=== PATIENT | female | born 1935 | race Caucasian/White ===

== ENCOUNTER → 2017-01-27 | Outpatient (CLI) | payer BC ==
[~2017-01-27] MED LIST: CHOL100010 PO; CYAN100020 PO; DARI15TA PO; FURO-85 PO; LXP/20 PO; METO-217 PO; OXGN; POTA1TAB97 PO; WLLSR150 PO
[2017-01-27 17:41] LABS: BASO % 0.3 %; BASO ABS # 0.02 K/uL (0-0.2); COMPLETE YES; HEMATOCRIT 36.3 % (37-47); IG% 0.4 %; LYMPH % 27.7 %; LYMPH ABS # 2.17 K/uL (1.2-3.4); MEAN CELL VOLUME 99.7 fL (80-100); MEAN CORPUSCULAR HEMOGLOBIN 32.7 pg (25-34); MEAN CORPUSCULAR HGB CONC 32.8 g/dl (32-36); MEAN PLATELET VOLUME 10.1 fL (7.4-10.4); MONO % 6.1 %; NEUT % 63.5 %; PLATELET COUNT 344 K/uL (130-400); RED BLOOD COUNT 3.64 M/uL (4.2-5.4); WHITE BLOOD COUNT 7.82 K/uL (4.8-10.8)
[2017-01-27 18:14] LABS: FERRITIN 103.6 ng/ml (8.0-388.0)
--- NOTE | 2017-02-03 07:34 | CODING QUERY MEDICAL NECESSITY ---
CQSUPPORTING DIAGNOSIS NEEDED A supporting diagnosis is required for the test/procedure performed on this patient in order for us to be reimbursed by the patient's insurance. Please provide a supporting diagnosis for the following test/procedure listed below next to the test name along with your signature. *If there is no additional diagnosis for this patient that would support the following test/procedure please document that below next to the test/procedure. Test(s)/Procedure(s) that require a supporting diagnosis: DOS 01/27/17 VITAMIN B12 TEST Provider Signature: Date: Thank you [facility] Once completed, please kindly fax back to [phone] For questions please call [phone]
== END | disposition home or self-care (01) ==
LOC: C.LABPVFM 14:54
PROVIDERS: ATTEND Internal Medicine Hematology & Oncology
DX: D50.9 Iron deficiency anemia, unspecified (principal)

== ENCOUNTER → 2017-04-23 | Day surgery (SDC) | payer BC ==
[2017-04-01 13:46] VITALS: Ht 149.9 cm; Wt 74.5 kg
[~2017-04-23] VITALS: Ht 149.9 cm; Wt 74.5 kg
[~2017-04-23] MED LIST changes: +500ML BSS 0.3ML EPI 1:1000PF IRRIG ONE; +ACETAMINOPHEN 325 MG TAB PO PRN; +AMVISC PLUS 0.8ML SYRINGE INT OCU ONE; +ATROPINE SULFATE 0.1 MG/ML 5ML SYR IV PRN; +AcetaZOLAMIDE 250 MG TAB PO SCH; +BETAXOLOL HCL 0.25% OP SUSP PER DROP CHARGE OPL SCH; +BRIMONIDINE TART 0.2% OP SOLN PER DROP CHARGE ONE; +CYCLOPENTOLATE HCL 1% OP SOLN PER DROP CHARGE OPL SCH; +ENDOCOAT 0.85ML SYRINGE INT OCU ONE; +EpINEphrine INJ 1MG/ML AMP 1 MG/ML AMP ONE; +LACTATED RINGER'S 1000ML 500 ML IV SCH; +LIDOCAINE 4% OP SOLN DROP CHARGE ONE; +LIDOCAINE 4% OP SOLN DROP CHARGE OPL SCH; +LIDOCAINE HCL 1% MPF 2 ML VIAL ONE; +MIDAZOLAM HCL 1 MG/ML 2ML VIAL ONE; +MIX: 4ML BSS 1ML EPI 1:1000 PF INSTIL ONE; +MOXIFLOXACIN OPH SOLN PER DROP CHARGE ONE; +MOXIFLOXACIN OPH SOLN PER DROP CHARGE OPL SCH; +OCUCOAT 1 ML SOLN IO ONE; +PHENYLEPHRINE HCL 2.5% OP SOLN PER DROP CHARGE OPL SCH; +POVIDONE-IODINE OP SOLN 30 ML BTL ONE; +PROPARACAINE 0.5% OP SOLN PER DROP CHARGE OPL SCH; +TOBRAMYCIN/DEXAMETHASONE OPH OINT PER APPLN CHARGE ONE; +TROPICAMIDE 1% OP SOLN PER DROP CHARGE OPL SCH
--- NOTE | 2017-04-23 08:40 | History & Physical Bridge - SC ---
H&P Re-Evaluation Bridge Note: I have examined the patient, reviewed the History & Physical and in the interval since the performance of the History & Physical I have noted the following changes of clinical significance: No changes noted
[2017-04-23] MEDS: PHENYLEPHRINE HCL 2.5% OP SOLN PER DROP CHARGE OPL SCH ×2 (09:48→09:53)
[2017-04-23] MEDS: TROPICAMIDE 1% OP SOLN PER DROP CHARGE OPL SCH ×2 (09:49→09:54)
[2017-04-23] MEDS: CYCLOPENTOLATE HCL 1% OP SOLN PER DROP CHARGE OPL SCH ×2 (09:50→09:55)
[2017-04-23] MEDS: MOXIFLOXACIN OPH SOLN PER DROP CHARGE OPL SCH ×2 (09:51→10:01)
--- NOTE | 2017-04-23 10:52 | Discharge Instructions-SurgCtr ---
Discharge Instructions Date of Service Apr 23, 2017. Visit Reason for Visit: Left Cataract Discharge Discharge Diagnosis / Problem: lens implant left eye Discharge Goals Goal(s): Improve function Activity Recommendations Activity Limitations: resume your previous activity Lifting Limitations: no more than 10 pounds Exercise/Sports Limitations: gradually increase as tolerated May Resume Sexual Activity: when tolerated Shower/Bathe: tomorrow Driving or Machine Use: resume 1 day after discharge Anesthesia . Post Anesthesia Instructions: If you have had General Anesthesia or IV Sedation: * Do not drive today. * Resume driving when surgeon permits. * Do not make important decisions or sign legal documents today. * Call surgeon for: 1. Temperature elevations greater than 101 degrees F. 2. Uncontrollable pain. 3. Excessive bleeding. 4. Persistent nausea and vomiting. 5. Medication intolerance (nausea, vomiting or rash). * For nausea and vomiting use only clear liquids such as: tea, soda, bouillon until nausea subsides, then gradually increase diet as tolerated. * If you have any concerns or questions, call your surgeon's office. If physician is unavailable and it is an emergency, call 911 or go to the nearest emergency room. . Instructions / Follow-Up Instructions / Follow-Up ACTIVITY RECOMMENDATIONS: * Light activities. * Mild irritation and blurred vision are common for the first few days. * You may walk outside, read, watch television. * Redness around the white part of the eye is common. MEDICATIONS: Resume previous medications unless instructed otherwise by your surgeon. * Take white Diamox (Acetazolamide) tablet at 1 pm today. Start all eye drops at 1 pm today: * Eye drops (today and tomorrow): Prednisone - one drop in operative eye every 3 hours while awake Ofloxacin - one drop in operative eye every 3 hours while awake SPECIAL CARE INSTRUCTIONS: * Tape plastic shield over eye to sleep at night. Call your doctor at with any concerns or problems. FOLLOW UP VISIT: Follow-up with Dr Braun at [facility] office as scheduled. Diet Recommendations Home Diet: no limitations Procedures Procedures Performed: cataract extraction with lens implant Pending Studies Studies pending at discharge: no Medical Emergencies . Who to Call and When: Medical Emergencies: If at any time you feel your situation is an emergency, please call 911 immediately. . Non-Emergent Contact Non-Emergency issues call your: English Composition Instructor Call Non-Emergent contact if: your pain is not controlled [phone] . . "Provider Documentation" section prepared by Dameon Braun. .
--- NOTE | 2017-04-23 10:53 | [facility] Operative Report ---
Operative Report Date of Service Apr 23, 2017. Operative Report 1. PREOPERATIVE DIAGNOSIS: Senile nuclear cataract, left eye. 2. POSTOPERATIVE DIAGNOSIS: Senile nuclear cataract, left eye. 3. PROCEDURE: Phacoemulsification of left cataract with posterior chamber lens implant, type [employer], model MI60L, power +26 diopters. ANESTHESIA: Local standby. SURGEON: Dr. Braun. COMPLICATIONS: None. OPERATING TIME: 10 minutes. 4. OPERATION AND FINDINGS: DESCRIPTION OF PROCEDURE: The left pupil was dilated. The anesthetic was administered using a topical technique. The left eye was prepped and draped. A speculum was placed. A clear corneal incision was formed. The chamber was filled with Amvisc Plus and Endocoat. Epinephrine solution was used. A paracentesis was placed. A capsulorrhexis was performed. The nucleus was hydrodissected. The lens was removed with phacoemulsification. Time was 2.97 seconds. The aspiration unit was used to remove the cortex. The capsule was filled with Amvisc Plus. The lens implant was folded and placed into the capsule. The incision was hydrated. The Amvisc was aspirated. The wound was secure. The chamber was deep. The pupil was round. Brimonidine, TobraDex ointment and Vigamox solution were placed. The speculum was removed. The patient was returned to the Recovery Room in stable condition. I attest to the content of the Intraoperative Record and any orders documented therein. Any exceptions are noted below. The scribe's documentation has been prepared in my presence, under my direction and personally reviewed by me in its entirety. I confirm that the note above accurately reflects all work, treatment, procedures, and medical decision making performed by me. I personally scribed for Dameon Braun M.D. ([facility]) on 04/23/17 at 10:53. Electronically submitted by Elizabeth Benavides ([facility]).
[2017-04-23 10:56] VITALS: TEMP 36.5
--- NOTE | 2017-04-23 11:08 | Anesthesia Progress Nt - [facility] ---
Anesthesia Post Op Note Date & Time Apr 23, 2017 at 11:08 Vital Signs Pain Intensity: 0 Vital Signs Past 12 Hours Date Time Temp Pulse Resp B/P (MAP) Pulse Ox O2 Delivery O2 Flow Rate FiO2 04/23/17 10:56 36.5 56 20 148/69 (95) 98 Room Air 04/23/17 09:57 37.1 61 16 160/72 (101) 96 Room Air Notes Mental Status: alert / awake / arousable, participated in evaluation Pt Amnestic to Procedure: Yes Nausea / Vomiting: adequately controlled Pain: adequately controlled Airway Patency, RR, SpO2: stable & adequate BP & HR: stable & adequate Hydration State: stable & adequate Anesthetic Complications: no major complications apparent
[2017-04-23 11:16] VITALS: BP 148/74; PULSE 56; O2SAT 95
== END | disposition home or self-care (01) ==
LOC: X.SURG 08:50
PROVIDERS: ATTEND Specialist
DX: H25.12 Age-related nuclear cataract, left eye (principal); E03.9 Hypothyroidism, unspecified; E11.9 Type 2 diabetes mellitus without complications; I10 Essential (primary) hypertension; R01.1 Cardiac murmur, unspecified; M19.90 Unspecified osteoarthritis, unspecified site; G62.9 Polyneuropathy, unspecified; F41.9 Anxiety disorder, unspecified; F32.9 Major depressive disorder, single episode, unspecified; D75.9 Disease of blood and blood-forming organs, unspecified

== ENCOUNTER → 2017-04-24 | Outpatient (CLI) | payer BC ==
[~2017-04-24] MED LIST changes: -500ML BSS 0.3ML EPI 1:1000PF IRRIG ONE; -ACETAMINOPHEN 325 MG TAB PO PRN; -AMVISC PLUS 0.8ML SYRINGE INT OCU ONE; -ATROPINE SULFATE 0.1 MG/ML 5ML SYR IV PRN; -AcetaZOLAMIDE 250 MG TAB PO SCH; -BETAXOLOL HCL 0.25% OP SUSP PER DROP CHARGE OPL SCH; -BRIMONIDINE TART 0.2% OP SOLN PER DROP CHARGE ONE; -CYCLOPENTOLATE HCL 1% OP SOLN PER DROP CHARGE OPL SCH; -ENDOCOAT 0.85ML SYRINGE INT OCU ONE; -EpINEphrine INJ 1MG/ML AMP 1 MG/ML AMP ONE; -LACTATED RINGER'S 1000ML 500 ML IV SCH; -LIDOCAINE 4% OP SOLN DROP CHARGE ONE; -LIDOCAINE 4% OP SOLN DROP CHARGE OPL SCH; -LIDOCAINE HCL 1% MPF 2 ML VIAL ONE; -MIDAZOLAM HCL 1 MG/ML 2ML VIAL ONE; -MIX: 4ML BSS 1ML EPI 1:1000 PF INSTIL ONE; -MOXIFLOXACIN OPH SOLN PER DROP CHARGE ONE; -MOXIFLOXACIN OPH SOLN PER DROP CHARGE OPL SCH; -OCUCOAT 1 ML SOLN IO ONE; -PHENYLEPHRINE HCL 2.5% OP SOLN PER DROP CHARGE OPL SCH; -POVIDONE-IODINE OP SOLN 30 ML BTL ONE; -PROPARACAINE 0.5% OP SOLN PER DROP CHARGE OPL SCH; -TOBRAMYCIN/DEXAMETHASONE OPH OINT PER APPLN CHARGE ONE; -TROPICAMIDE 1% OP SOLN PER DROP CHARGE OPL SCH
[2017-04-24 16:51] LABS: BASO % 0.3 %; BASO ABS # 0.02 K/uL (0-0.2); COMPLETE YES; EOS % 4.3 %; HEMATOCRIT 39.5 % (37-47); IG% 0.3 %; LYMPH % 27.4 %; LYMPH ABS # 1.98 K/uL (1.2-3.4); MEAN CELL VOLUME 102.3 fL (80-100); MEAN CORPUSCULAR HEMOGLOBIN 32.9 pg (25-34); MEAN CORPUSCULAR HGB CONC 32.2 g/dl (32-36); MEAN PLATELET VOLUME 10.8 fL (7.4-10.4); MONO % 5.9 %; NEUT % 61.8 %; PLATELET COUNT 328 K/uL (130-400); RED BLOOD COUNT 3.86 M/uL (4.2-5.4); WHITE BLOOD COUNT 7.23 K/uL (4.8-10.8)
[2017-04-24 17:04] LABS: FERRITIN 74.4 ng/ml (8.0-388.0)
== END | disposition home or self-care (01) ==
LOC: C.LABBC 14:46
PROVIDERS: ATTEND Nurse Practitioner
DX: D50.9 Iron deficiency anemia, unspecified (principal); E53.8 Deficiency of other specified B group vitamins; E55.9 Vitamin D deficiency, unspecified; I10 Essential (primary) hypertension

== ENCOUNTER → 2017-06-10 | Outpatient (CLI) | payer BC ==
[2017-06-10 15:40] LABS: BASO % 0.2 %; BASO ABS # 0.01 K/uL (0-0.2); COMPLETE YES; EOS % 0.2 %; HEMATOCRIT 36.2 % (37-47); IG% 0.2 %; LYMPH % 14.6 %; LYMPH ABS # 0.71 K/uL (1.2-3.4); MEAN CELL VOLUME 96.3 fL (80-100); MEAN CORPUSCULAR HEMOGLOBIN 31.1 pg (25-34); MEAN CORPUSCULAR HGB CONC 32.3 g/dl (32-36); MEAN PLATELET VOLUME 10.6 fL (7.4-10.4); MONO % 2.3 %; NEUT % 82.5 %; PLATELET COUNT 253 K/uL (130-400); RED BLOOD COUNT 3.76 M/uL (4.2-5.4); WHITE BLOOD COUNT 4.87 K/uL (4.8-10.8)
[2017-06-10 15:51] LABS: ALT/SGPT 27 U/L (12-78); BLOOD UREA NITROGEN 22 mg/dl (7-18); BUN/CREATININE RATIO 22.5 (10-20); CALCIUM 8.7 mg/dl (8.5-10.1); CARBON DIOXIDE 26 mmol/L (21-32); CHLORIDE 105 mmol/L (98-107); CREATININE 0.96 mg/dl (0.60-1.20); GLUCOSE 120 mg/dl (70-99); POTASSIUM 3.9 mmol/L (3.5-5.1); SODIUM 138 mmol/L (136-145)
[2017-06-10 15:53] LABS: ALB/GLOB RATIO 0.9 (0.9-2); ALKALINE PHOSPHATASE 111 U/L (45-117); AST/SGOT 36 U/L (15-37)
[2017-06-10 16:34] LABS: LYME DISEASE AB IGG NEG (NEG)
[2017-06-10 16:50] LABS: LYME DISEASE AB IGM EQUIVOCAL (NEG)
[2017-06-17 10:43] LABS: 18KDIGG BAND NONREACTIVE (NONREACTIVE); 23KDIGG BAND REACTIVE (NONREACTIVE); 23KDIGM BAND REACTIVE (NONREACTIVE); 28KDIGG BAND NONREACTIVE (NONREACTIVE); 30KDIGG BAND NONREACTIVE (NONREACTIVE); 39KDIGG BAND NONREACTIVE (NONREACTIVE); 39KDIGM BAND NONREACTIVE (NONREACTIVE); 41KDIGG BAND REACTIVE (NONREACTIVE); 41KDIGM BAND NONREACTIVE (NONREACTIVE); 45KDIGG BAND NONREACTIVE (NONREACTIVE); 58KDIGG BAND NONREACTIVE (NONREACTIVE); 66KDIGG BAND NONREACTIVE (NONREACTIVE); 93KDIGG BAND NONREACTIVE (NONREACTIVE)
== END | disposition home or self-care (01) ==
LOC: C.LAB1850 14:14
PROVIDERS: ATTEND Internal Medicine
DX: R50.9 Fever, unspecified (principal); E55.9 Vitamin D deficiency, unspecified

== ENCOUNTER → 2017-06-30 | Outpatient (CLI) | payer BC ==
[2017-06-30 17:51] LABS: BLOOD UREA NITROGEN 23 mg/dl (7-18); BUN/CREATININE RATIO 23.7 (10-20); CALCIUM 8.7 mg/dl (8.5-10.1); CARBON DIOXIDE 33 mmol/L (21-32); CHLORIDE 104 mmol/L (98-107); CREATININE 0.96 mg/dl (0.60-1.20); GLUCOSE 77 mg/dl (70-99); SODIUM 140 mmol/L (136-145)
== END | disposition home or self-care (01) ==
LOC: C.LAB 16:51
PROVIDERS: ATTEND Nurse Practitioner Adult Health
DX: R60.9 Edema, unspecified (principal)

== ENCOUNTER 2017-12-08 23:48 | Emergency (ER) | payer BC ==
[~2017-12-08] VITALS: Ht 149.9 cm; Wt 74.3 kg
[2017-12-08 23:55] VITALS: TEMP 36.7; Ht 149.9 cm; Wt 74.3 kg
[2017-12-09] MEDS ORDERED: CEFIXIME TAB 400 MG CAP PO STA (01:12)
[2017-12-09] MEDS ORDERED: CEFD1CAP14 PO (01:14)
--- NOTE | 2017-12-09 01:15 | EMERGENCY ROOM VISIT NOTE ---
History Report prepared by Ann: Neo Mandel Under the Supervision of: Dr. Jorge Jane M.D. First contact with patient: 00:06 Chief Complaint: SWELLING TO EXTREMITY Stated Complaint: LEGS SWOLLEN AND RED History of Present Illness The patient is a 82 year old female who presents to the Emergency Room with complaints of worsening bilateral leg swelling. She has a history of cellulitis of her legs and is concerned they may be infected. She states that she has had her swelling in her legs for a long time, but that it worsened acutely a week ago. The patient also complains of an occasional cough. She denies any fevers, chills, vomiting, or SOB. She denies recent antibiotic use. The patient has noticed red spots forming on her legs over the past few weeks. She has had one large red spot on her left leg that has been present for a while. She states that her legs feel very sore. The patient's penicillin allergy involved a rash which developed after using Augmentin. Source of History: patient Onset: A week ago Position: leg (bilateral) Quality: other (swelling) Timing: worsening Associated Symptoms: + cough (occasional), No fevers, No chills, No SOB, No vomiting Review of Systems See HPI for pertinent positives & negatives. A total of 10 systems reviewed and were otherwise negative. Past Medical & Surgical Medical Problems: (1) Arthritis (2) Cellulitis (3) Depression (4) Edema (5) Hyperlipidemia Nec/Nos (6) Hypertension Nos (7) Osteoarthros Nos-Unspec (8) Sepsis Family History Cancer Diabetes mellitus Heart disease Hypertension Kidney disease Kidney stones Social History Smoking Status: Never Smoker Drug Use: none Marital Status: , Housing Status: lives with family Occupation Status: retired Current/Historical Medications Scheduled Bupropion HCl (Bupropion HCl Sr), 150 MG PO QAM Cefdinir (Omnicef), 300 MG PO Q12H Cholecalciferol (Vitamin D), 1 TAB PO QAM Cyanocobalamin (Vitamin B12), 1 TAB PO QAM Darifenacin (Enablex), 15 MG PO QAM Escitalopram Oxalate (Escitalopram Oxalate), 20 MG PO QAM Furosemide (Lasix), 20 MG PO QAM Home O2 Therapy (Oxygen), 2 LITERS NA HS Metoprolol Succinate (Toprol Xl), 50 MG PO BID Potassium Chloride (K-Tab), 1 TAB PO QAM Allergies Coded Allergies: Penicillins (Unverified Allergy, Unknown, RASH ALL OVER-TOLERATED ZOSYN, ) Physical Exam Vital Signs Date Time Temp Pulse Resp B/P (MAP) Pulse Ox O2 Delivery O2 Flow Rate FiO2 12/09/17 01:27 83 18 161/67 97 12/08/17 23:55 36.7 90 18 179/77 96 Room Air Physical Exam GENERAL: Patient is elderly appearing and in no acute distress. Laughing, smiling. HEENT: No acute trauma, normocephalic atraumatic, mucous membranes moist, no nasal congestion, no scleral icterus. NECK: No stridor, no adenopathy, no meningismus, trachea is midline. LUNGS: No dyspnea. Clear to auscultation and equal bilaterally. No wheeze, no rhonchi. HEART: Regular rate and rhythm. No murmurs, rubs, gallops appreciated. ABDOMEN: Soft, nontender, bowel sounds positive, no masses appreciated, no peritonitis. BACK: No midline tenderness, no CVA tenderness EXTREMITIES: Pitting edema bilateral lower legs. Cellulitis/erythema of the left lower leg from the foot to the mid-calf. Scabbed over sores of the left anterior moore. No abscess or fluctuance. No streaking up legs of cellulitis. NEUROLOGIC: Alert and oriented, no acute motor or sensory deficits, no focal weakness, cranial nerves grossly intact. SKIN: No rash, no jaundice, no diaphoresis. Medical Decision & Procedures ER Provider Diagnostic Interpretation: US results per statrad and my review. US VENOUS LEFT LOWER EXTREMITY: No evidence of deep vein thrombosis. Medications Administered Medications (Trade) Dose Ordered Sig/Yenny Route Start Time Stop Time Status Last Admin Dose Admin Cefixime (Suprax Tab) 400 mg NOW STAT PO 12/09/17 01:12 12/09/17 01:14 DC 12/09/17 01:23 400 MG ED Course 0007: The patient was evaluated in room A12B. A complete history and physical exam was performed. 0112: Ordered Suprax Tab 400 mg PO. 0115: Reevaluated the patient. She feels comfortable and would like to go home. Discussed results and discharge instructions: she verbalized understanding and agreement. The patient is ready for discharge. Medical Decision Differential: DVT, CHF, Arterial Occlusion, Infectious, Joint Effusion, Trauma, Lymphedema, Idiopathic, amongst other pathologies entertained. 82 yr old female with recently worsening lymphedema and has now developed cellulitis left ankle. She is without systemic symptoms. Suspect this is from healed sores left moore. No DVT by US. Pulses intact, no compartment syndrome, no evidence of abscess, and I do not suspect underlying fracture given no trauma. Advised increase Lasix x 2 daily for next 2 days and repeat eval by PCP. History of normal kidney function and denies change urinary frequency etc. Will treat with Omnicef given culture with previous infection. Discussed that given her history she is at increased risk of failure outpatient therapy and to have close monitoring for evidence of worsening. Stressed PCP evaluation of this as well. Family and patient comfortable with this plan. Medication Reconcilliation Current Medication List: was personally reviewed by me Blood Pressure Screening Patient's blood pressure: Elevated blood pressure Blood pressure disposition: Referred to PCP Impression Primary Impression: Cellulitis of left lower leg Additional Impression: Lymphedema Scribe Attestation The scribe's documentation has been prepared under my direction and personally reviewed by me in its entirety. I confirm that the note above accurately reflects all work, treatment, procedures, and medical decision making performed by me. Departure Information Dispostion Home / Self-Care Prescriptions Cefdinir (Omnicef) 300 Mg Cap 300 MG PO Q12H for 10 Days, #20 CAP Prov: Jorge Jane M.D. 12/09/17 Referrals RV. Castro MD (PCP) Patient Instructions Cellulitis - [facility], My [facility] Additional Instructions It is important you follow up with your primary care provider in the next 2-3 days. Over the next 2 days increase your Lasix to 2 tabs in the morning. Problem Qualifiers
[2017-12-09 01:27] VITALS: BP 161/67; PULSE 83; O2SAT 97
--- NOTE | 2017-12-09 07:03 | DIAGNOSTIC IMAGING REPORT ---
ULTRASOUND LEFT LOWER EXTREMITY VENOUS CLINICAL HISTORY: Left leg swelling and erythema. COMPARISON STUDY: Left lower extremity venous ultrasound dated 11/09/2015. TECHNIQUE: Real-time, grayscale, and color Doppler sonography of the deep veins of the left lower extremity was performed from the inguinal crease to the calf. Compression and augmentation were utilized. FINDINGS: There is no sonographic evidence of deep venous thrombosis identified in the left lower extremity. The common femoral, superficial femoral, and popliteal veins are patent and normally compressible. The greater saphenous vein and the profunda femoris vein at the junction with the common femoral vein are clear. The visualized calf veins are patent. IMPRESSION: There is no sonographic evidence of deep venous thrombosis identified in the left lower extremity. Electronically signed by: Simone Rodriguez M.D. 12/09/2017 7:02 AM Dictated Date/Time: 12/09/2017 7:02 AM
== END 2017-12-09 01:28 | disposition home or self-care (01) ==
LOC: C.EDB 23:49 → C.EDA 12-09 01:28
DX: L03.116 Cellulitis of left lower limb (principal); I89.0 Lymphedema, not elsewhere classified; M19.90 Unspecified osteoarthritis, unspecified site; F32.9 Major depressive disorder, single episode, unspecified; E78.5 Hyperlipidemia, unspecified; I10 Essential (primary) hypertension; M81.0 Age-related osteoporosis without current pathological fracture; Z99.81 Dependence on supplemental oxygen; Z83.3 Family history of diabetes mellitus; Z82.49 Family history of ischemic heart disease and other diseases of the circulatory system; Z84.1 Family history of disorders of kidney and ureter

== ENCOUNTER → 2018-01-26 | Outpatient (CLI) | payer BC | END | disposition home or self-care (01) | LOC: C.PATHSPEC 16:28 | PROVIDERS: ATTEND Dermatology | DX: L57.0 Actinic keratosis (principal) ==

== ENCOUNTER → 2018-02-26 | Outpatient (CLI) | payer BC ==
[2018-02-26 11:24] LABS: BASO % 0.3 %; BASO ABS # 0.02 K/uL (0-0.2); EOS % 2.7 %; EOS ABS # 0.17 K/uL (0-0.5); HEMATOCRIT 37.4 % (37-47); HEMOGLOBIN 12.1 g/dL (12.0-16.0); IG# 0.01 K/uL (0.00-0.02); LYMPH % 27.1 %; LYMPH ABS # 1.71 K/uL (1.2-3.4); MEAN CELL VOLUME 95.9 fL (80-100); MEAN CORPUSCULAR HGB CONC 32.4 g/dl (32-36); MEAN PLATELET VOLUME 9.9 fL (7.4-10.4); MONO % 6.2 %; MONO ABS # 0.39 K/uL (0.11-0.59); NEUT % 63.5 %; NEUT ABS # 4.01 K/uL (1.4-6.5); PLATELET COUNT 291 K/uL (130-400); RED CELL DISTRIBUTION WIDTH CV 13.7 % (11.5-14.5); RED CELL DISTRIBUTION WIDTH SD 47.9 fL (36.4-46.3); WHITE BLOOD COUNT 6.31 K/uL (4.8-10.8)
== END | disposition home or self-care (01) ==
LOC: C.LAB 10:52
PROVIDERS: ATTEND Internal Medicine Hematology & Oncology
DX: D50.9 Iron deficiency anemia, unspecified (principal)

== ENCOUNTER 2023-11-20 14:21 | Inpatient (IN) ==
[2023-11-20 15:07] LABS: Basophils # (auto) 0.04 K/uL (0.00-0.20); Basophils % (auto) 0.6 %; Eosinophils # (auto) 0.27 K/uL (0.00-0.50); Eosinophils % (auto) 4.4 %; Hematocrit (blood only) 33.3 % (37.0-47.0); Hemoglobin 10.8 g/dl (12.0-16.0); Immature Granulocytes # (auto) 0.02 K/uL (0.01-0.20); Immature Granulocytes % (auto) 0.3 %; Lymphocytes # (auto) 1.63 K/uL (1.20-3.40); Lymphocytes % (auto) 26.4 %; Mean Corpuscular Hgb Conc 32.4 g/dL (32.0-36.0); Mean Corpuscular Volume 98.5 fL (80.0-100.0); Mean Platelet Volume 10.5 fL (9.4-12.4); Monocytes # (auto) 0.47 K/uL (0.11-0.59); Monocytes % (auto) 7.6 %; Neutrophils # (auto) 3.75 K/uL (1.40-6.50); Neutrophils % (auto) 60.7 %; Platelet Count 340 K/uL (130-400); RDW Coefficient of Variation 13.5 % (11.5-14.5); RDW Standard Deviation 48.9 fL (36.4-46.3); Red Blood Count 3.38 M/uL (4.20-5.40); White Blood Count 6.18 K/ul (4.8-10.8)
[2023-11-20 15:24] LABS: Albumin Globulin Ratio 1.4 (0.9-2); Albumin Level 4.1 gm/dl (3.4-5.0); BUN Creatinine Ratio 35.6 (10-20); Bilirubin,Total 0.5 mg/dl (0.2-1.0); Calcium 8.8 mg/dl (8.6-10.3); Creatinine Clr Calc Pharmacy 27.8 ml/min; Est GFR (African American) 47.4 ml/min; Est GFR (Non-African American) 40.9 ml/min; Globulin 2.9 gm/dl (2.5-4.0)
[2023-11-20 15:32] LABS: Partial Thromboplastin Time 29 Seconds (21-31); Prothrombin Time 10.8 Seconds (9.0-12.0); Troponin I High Sensitivity 138.2 pg/ml (0-14)
--- NOTE | 2023-11-20 16:31 | Electrocardiogram Report ---
Test Reason : Blood Pressure : / mmHG Vent. Rate : 074 BPM Atrial Rate : 074 BPM P-R Int : 168 ms QRS Dur : 086 ms QT Int : 392 ms P-R-T Axes : 023 003 022 degrees QTc Int : 435 ms Normal sinus rhythm Minimal voltage criteria for LVH, may be normal variant ( R in aVL ) Poor R wave progression, consider anterior UT vs. lead placement vs. LVH Abnormal ECG When compared with ECG of 15-APR-2023 21:31, No significant change was found Confirmed by Dameon Longo ([id number]) on 11/20/2023 4:30:50 PM Referred By: Confirmed By:Dameon Longo
[2023-11-20] MEDS ORDERED: OPTIRAY 320 125ml IV ONE (16:51)
--- NOTE | 2023-11-20 16:58 | Emergency Department Note ---
History of Present Illness General Chief complaint: Referred by Doctor Stated complaint: POSSIBLE CELLULITIS Time Seen by Provider: 11/20/23 16:07 History of Present Illness Provider complaint: Leg swelling Onset (ago): week(s) 1 88-year-old female presents emergency department for leg swelling. Patient reports that she has swelling in her right lower extremity. She states she has pain in her right lower extremity. She reports chest pain with exertion as well as shortness of breath at rest as well as as with exertion. She reports no blood thinner usage. Patient reports history of cellulitis. No fevers. Home Medications Medication Instructions Recorded Confirmed Type Oxygen Home #1 ea 07/30/19 09/03/23 History multivitamin (Daily Multi-Vitamin 1 tab PO QAM 07/30/19 11/20/23 History tablet) calcium carbonate 500 mg calcium 500 mg PO QAM 12/22/19 11/20/23 History (1,250 mg) tablet acetaminophen 500 mg tablet 1,000 mg PO Q6 PRN Pain 06/20/20 11/20/23 History (Tylenol Extra Strength) cholecalciferol (vitamin D3) 25 2,000 unit PO QAM #90 caps 08/18/20 11/20/23 Rx mcg (1,000 unit) capsule (Vitamin D3) cyanocobalamin (vitamin B-12) 2,000 mcg PO QAM 08/18/20 11/20/23 History 1,000 mcg tablet docusate sodium 100 mg capsule 100 mg PO DAILY 08/07/22 11/20/23 History (Colace) trospium 60 mg capsule,extended 60 mg PO QAM #90 caps 12/09/22 11/20/23 Rx release 24 hr nystatin-triamcinolone 100,000 1 applic topical BID PRN Rash 04/16/23 11/20/23 History unit/g-0.1 % topical cream clobetasol 0.05 % topical cream 1 applic topical DAILY Rash #60 04/22/23 11/20/23 Rx grams bupropion HCl 150 mg tablet,12 hr 150 mg PO QAM #90 ea 08/29/23 11/20/23 Rx sustained-release hydrochlorothiazide 25 mg tablet 25 mg PO QAM edema #90 tabs 08/29/23 11/20/23 Rx estradiol 0.01% (0.1 mg/gram) 1 g vaginal 2XWK #42.5 grams 09/03/23 11/20/23 Rx vaginal cream hydralazine 50 mg tablet 50 mg PO Q8H #270 tabs 10/03/23 11/20/23 Rx Allergies Allergy/AdvReac Type Severity Reaction Status Date / Time Penicillins Allergy Unknown DIFFUSE Verified 09/03/23 11:54 RASH Past Med/Surg History Medical History History of rib fracture (11/11/22) 11th rib fracture. 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 Vaginal prolapse Uterine prolapse Hx of headache History of anemia Hx of actinic keratosis History of anxiety Urinary incontinence Cellulitis recurrent LLE, no current issues Obesity Nocturnal hypoxemia 2L O2 HS as needed Hypertension Arthritis Depression Surgical History History of colonoscopy History of cataract surgery History of oral surgery History of cystoscopy most recent 01/04/19 [place] Status post excision of lipoma Family History Brother Hearing loss Myocardial infarction Hypertension Mother Hearing loss Hypertension Father Hearing loss Hypertension Other Allergies Asthma Heart disease No family history of adverse response to anesthesia No family history of bleeding disorder Denies family history of Colon cancer Ovarian cancer Prostate cancer Breast cancer Colorectal cancer Social History Smoking Status: Never smoker Second Hand Exposure: No; Do You Dip or Chew Tobacco: No; Hx Alcohol Use: No Hx Substance Use: No Preferred Language: Kinyarwanda Communication Ability: Effective Visual Impairment: No Limitations Hearing Ability: Normal Graduate Assistant Athletic Trainer Required: No Beliefs That Will Affect Care: None marital status: / Current Living Situation: Alone current occupational status: retired Feels Safe at Home: Yes Childhood Exposure to Second-Hand Smoke: No Diet: regular during the past year weight has: remained stable Dental Care, Regularly: Yes Physical Activity Frequency: Does not Exercise Seatbelt Use: always Sunscreen Use: Yes Assistive Devices: Denture - Upper, Denture - Lower and Glasses Physical Exam Vital Signs Vital Signs - 24 hr 11/20/23 14:29 11/20/23 16:10 11/20/23 16:10 Temperature 36.6 C Temperature Source Temporal Artery Scan Pulse Rate 79 75 Pulse Rate [Apical] Pulse Rate from SpO2 Sensor 73 Respiratory Rate 20 23 Respiratory Effort / Characteristics Non-Labored Respiratory Depth Normal Respiratory Pattern Blood Pressure 116/63 162/64 H Blood Pressure [Right Arm] Blood Pressure Mean 80 127 Blood Pressure Mean [Right Arm] Pulse Oximetry 97 98 Oxygen Delivery Method Room Air Sepsis Recent Fever Within 48 Hours No Sepsis New/Unexplained Change in Mental Status No Sepsis Action Taken by Nursing No Action Required 11/20/23 16:11 11/20/23 16:20 11/20/23 16:30 Temperature Temperature Source Pulse Rate 73 Pulse Rate [Apical] 76 Pulse Rate from SpO2 Sensor 72 Respiratory Rate 18 21 Respiratory Effort / Characteristics Non-Labored Spontaneous Respiratory Depth Normal Respiratory Pattern Regular Blood Pressure 183/75 H Blood Pressure [Right Arm] 162/64 H Blood Pressure Mean 115 Blood Pressure Mean [Right Arm] 96 Pulse Oximetry 98 97 Oxygen Delivery Method Room Air Sepsis Recent Fever Within 48 Hours Sepsis New/Unexplained Change in Mental Status Sepsis Action Taken by Nursing 11/20/23 16:30 11/20/23 16:40 11/20/23 17:01 Temperature Temperature Source Pulse Rate 73 71 74 Pulse Rate [Apical] Pulse Rate from SpO2 Sensor 74 71 74 Respiratory Rate 19 22 18 Respiratory Effort / Characteristics Respiratory Depth Respiratory Pattern Blood Pressure Blood Pressure [Right Arm] Blood Pressure Mean Blood Pressure Mean [Right Arm] Pulse Oximetry 98 96 95 Oxygen Delivery Method Sepsis Recent Fever Within 48 Hours Sepsis New/Unexplained Change in Mental Status Sepsis Action Taken by Nursing 11/20/23 17:02 11/20/23 17:02 11/20/23 17:10 Temperature Temperature Source Pulse Rate 75 75 Pulse Rate [Apical] Pulse Rate from SpO2 Sensor 75 73 Respiratory Rate 18 26 H Respiratory Effort / Characteristics Respiratory Depth Respiratory Pattern Blood Pressure 161/68 H Blood Pressure [Right Arm] Blood Pressure Mean 104 Blood Pressure Mean [Right Arm] Pulse Oximetry 97 99 Oxygen Delivery Method Room Air Sepsis Recent Fever Within 48 Hours Sepsis New/Unexplained Change in Mental Status Sepsis Action Taken by Nursing 11/20/23 17:20 11/20/23 17:30 11/20/23 17:30 Temperature Temperature Source Pulse Rate 74 74 Pulse Rate [Apical] Pulse Rate from SpO2 Sensor 74 74 Respiratory Rate 21 16 Respiratory Effort / Characteristics Respiratory Depth Respiratory Pattern Blood Pressure 173/77 H Blood Pressure [Right Arm] Blood Pressure Mean 116 Blood Pressure Mean [Right Arm] Pulse Oximetry 94 95 Oxygen Delivery Method Sepsis Recent Fever Within 48 Hours Sepsis New/Unexplained Change in Mental Status Sepsis Action Taken by Nursing 11/20/23 18:10 11/20/23 18:20 11/20/23 18:30 Temperature Temperature Source Pulse Rate 73 73 Pulse Rate [Apical] Pulse Rate from SpO2 Sensor 75 72 72 Respiratory Rate 16 14 Respiratory Effort / Characteristics Respiratory Depth Respiratory Pattern Blood Pressure Blood Pressure [Right Arm] Blood Pressure Mean Blood Pressure Mean [Right Arm] Pulse Oximetry 96 95 Oxygen Delivery Method Room Air Sepsis Recent Fever Within 48 Hours Sepsis New/Unexplained Change in Mental Status Sepsis Action Taken by Nursing 11/20/23 18:30 11/20/23 18:40 11/20/23 18:50 Temperature Temperature Source Pulse Rate 72 73 Pulse Rate [Apical] Pulse Rate from SpO2 Sensor 72 73 Respiratory Rate 14 14 Respiratory Effort / Characteristics Respiratory Depth Respiratory Pattern Blood Pressure 141/60 H Blood Pressure [Right Arm] Blood Pressure Mean 104 Blood Pressure Mean [Right Arm] Pulse Oximetry 92 91 Oxygen Delivery Method Room Air Sepsis Recent Fever Within 48 Hours Sepsis New/Unexplained Change in Mental Status Sepsis Action Taken by Nursing 11/20/23 19:00 11/20/23 19:00 11/20/23 19:10 Temperature Temperature Source Pulse Rate 77 82 Pulse Rate [Apical] Pulse Rate from SpO2 Sensor 76 81 Respiratory Rate 17 18 Respiratory Effort / Characteristics Respiratory Depth Respiratory Pattern Blood Pressure 168/78 H Blood Pressure [Right Arm] Blood Pressure Mean 90 Blood Pressure Mean [Right Arm] Pulse Oximetry 97 97 Oxygen Delivery Method Room Air Sepsis Recent Fever Within 48 Hours Sepsis New/Unexplained Change in Mental Status Sepsis Action Taken by Nursing Physical Exam HENT: Exam performed. -Head: Normocephalic and atraumatic. -Right Ear: External ear normal. No mastoid erythema -Left Ear: External ear normal. No mastoid erythema -Mouth/Throat: The oropharynx is clear and moist. No trismus in the jaw. No dental abscesses or uvula swelling. No oropharyngeal exudate or tonsillar abscesses. EYES: Conjunctivae and EOM are normal. Pupils are equal, round, and reactive to light. Right eye exhibits no discharge. Left eye exhibits no discharge. No scleral icterus. NECK: Normal range of motion. Neck supple. No JVD present. No spinous process tenderness present. CV: Normal rate, regular rhythm, normal heart sounds and intact distal pulses. Palpable radial pulses bue. PULM/CHEST: Effort normal and breath sounds normal. No respiratory distress. No stridor. She has no wheezes. She has no rales. ABD: The abdomen is soft.There is no tenderness. There is no rebound, no guarding MUSCSKEL: Swelling of the bilateral lower extremities right greater than left from the ankle to the calf. Palpable DP and PT pulses. NEURO: Motor and sensation grossly intact. SKIN: Mild erythema over the dorsum of the right foot. Course Course 1607: The patient was evaluated in room B7. A complete history and physical exam was performed Cardiac monitoring: An order was placed for continuous cardiac monitoring. The monitor shows a rate of 70 with sinus rhythm interpreted by 1915: Vital signs stable. Labs showed initial high-sensitivity troponin of 138 point 2 repeat 132.9 proBNP 269 imaging does show that the patient has congestive changes. Given that the patient was having exertional dyspnea and chest pain patient will be admitted. Lasix ordered for the patient. [facility] hospitalist team notified of the admission. Administered Medications Discontinued Medications Furosemide (Furosemide 40 Mg/4 Ml Vial) 40 mg IV ONE ONE Stop: 11/20/23 19:15 Last Admin: 11/20/23 19:35 Dose: 40 mg Documented By: MAIA Ioversol (Optiray 320 125ml) 117 ml IV ONCE ONE Stop: 11/20/23 16:52 Last Admin: 11/20/23 16:52 Dose: 117 ml Documented By: LEAH Medical Decision Making Laboratory Data Attestation: I reviewed the patient's lab results. 11/20/23 14:47 11/20/23 14:47 Lab Results 11/20/23 11/20/23 Range/Units 14:47 17:03 WBC 6.18 (4.8-10.8) K/ul RBC 3.38 L (4.20-5.40) M/uL Hgb 10.8 L (12.0-16.0) g/dl Hct 33.3 L (37.0-47.0) % MCV 98.5 (80.0-100.0) fL MCH 32.0 (25.0-34.0) pg MCHC 32.4 (32.0-36.0) g/dL RDW Std Deviation 48.9 H (36.4-46.3) fL RDW Coeff of Lul 13.5 (11.5-14.5) % Plt Count 340 (130-400) K/uL MPV 10.5 (9.4-12.4) fL Immature Gran % (Auto) 0.3 % Neut % (Auto) 60.7 % Lymph % (Auto) 26.4 % [place] % (Auto) 7.6 % Eos % (Auto) 4.4 % Baso % (Auto) 0.6 % Neut # (Auto) 3.75 (1.40-6.50) K/uL Lymph # (Auto) 1.63 (1.20-3.40) K/uL [place] # (Auto) 0.47 (0.11-0.59) K/uL Eos # (Auto) 0.27 (0.00-0.50) K/uL Baso # (Auto) 0.04 (0.00-0.20) K/uL Immature Gran # (Auto) 0.02 (0.01-0.20) K/uL PT 10.8 (9.0-12.0) Seconds INR 1.0 (0.9-1.1) APTT 29 (21-31) Seconds PTT Ratio 1.0 Sodium 139 (136-145) mmol/L Potassium 4.0 (3.5-5.1) mmol/L Chloride 104 (98-107) mmol/L Carbon Dioxide 27 (21-32) mmol/L Anion Gap 8 (3-11) BUN 42 H (6-23) mg/dl Creatinine 1.18 (0.6-1.2) mg/dl Est Cr Clr Drug Dosing 27.8 ml/min Est GFR ( Amer) 47.4 ml/min Est GFR (Non-Af Amer) 40.9 ml/min BUN/Creatinine Ratio 35.6 H (10-20) Glucose 86 (70-99(Fasting)) mg/dl Calcium 8.8 (8.6-10.3) mg/dl Total Bilirubin 0.5 (0.2-1.0) mg/dl AST 19 (13-39) U/L ALT 12 (7-52) U/L Alkaline Phosphatase 66 (34-104) U/L Troponin I High Sens 138.2 H* 132.9 H* (0-14) pg/ml B-Natriuretic Peptide 269 H (0-100) pg/ml Total Protein 7.0 (6.0-8.3) gm/dl Albumin 4.1 (3.4-5.0) gm/dl Globulin 2.9 (2.5-4.0) gm/dl Albumin/Globulin Ratio 1.4 (0.9-2) Imaging Data Radiologist's Impression: Chest CTA 11/20/23 16:17 CHEST CTA for PULMONARY ARTERIES CT DOSE: 671.5 mGy.cm HISTORY: Shortness of breath. TECHNIQUE: Multiaxial CT images of the chest were performed following the intravenous administration of contrast to evaluate the pulmonary arteries. 3D/Maximal intensity projection images were also obtained. Sagittal and coronal reformations were also reviewed. A dose lowering technique was utilized adhering to the principles of ALARA. COMPARISON STUDY: None. FINDINGS: There is an old, healed sternal fracture. No acute fractures identified. Limited views of the upper abdomen demonstrate a normal liver, spleen, and adrenal glands. There is a small hiatus hernia. Normal caliber esophagus. No pleural or pericardial effusions. The heart is mildly enlarged. No mediastinal or hilar lymphadenopathy. There is a left aortic arch with an aberrant right subclavian artery. The thoracic aorta is normal and course and caliber with no evidence for dissection. There is moderate calcified plaque within the aortic arch. There is moderate to severe coronary artery calcifications noted. Nondiagnostic evaluation of the majority of the lower lobe subsegmental pulmonary arteries due to the motion artifact. Otherwise, no filling defects within the remaining pulmonary arteries to suggest a pulmonary embolus. No pneumothorax. The central airways are patent. Punctate calcified granuloma seen within the left lower lobe. Mild interlobular septal thickening with faint groundglass densities. This may represent mild congestive change. Bibasilar densities favor dependent change/atelectasis. IMPRESSION: 1. No evidence for a pulmonary embolus with limitations as described above. 2. Cardiomegaly with mild interlobular septal thickening and faint groundglass densities. This may represent developing congestive change. ACT 112: Negative or not required by law. Electronically signed by: Ray Licona M.D. 11/20/2023 5:13 PM Venous Doppler Study 11/20/23 16:17 BILATERAL LOWER EXTREMITY VENOUS DOPPLER HISTORY: Bilateral lower extremity edema. COMPARISON STUDY: None. FINDINGS: There is normal compressibility, flow, and augmentation within the bilateral lower extremity deep venous systems. IMPRESSION: No DVT within the right or left lower extremity. ACT 112: Negative or not required by law. Electronically signed by: Ray Licona M.D. 11/20/2023 6:09 PM ECG Data Attestation: I personally reviewed and interpreted this ECG as follows: Indication: + chest pain Rate (beats per minute): 74 Rhythm: + normal sinus ECG Intervals/blocks: + Normal QRS, + Normal TN and + Normal QT-c ECG ST segments: + Normal ST segments MDM Narrative 1607: The patient was evaluated in room B7. A complete history and physical exam was performed Cardiac monitoring: An order was placed for continuous cardiac monitoring. The monitor shows a rate of 70 with sinus rhythm interpreted by mi 1915: Vital signs stable. Labs showed initial high-sensitivity troponin of 138 point 2 repeat 132.9 proBNP 269 imaging does show that the patient has congestive changes. Given that the patient was having exertional dyspnea and chest pain patient will be admitted. Lasix ordered for the patient. [facility] hospitalist team notified of the admission. Impression & Plan CHF (congestive heart failure) Discharge Plan Visit Data Chief Complaint: Referred by Doctor Stated Complaint: POSSIBLE CELLULITIS ED Provider: Darien Castro Discharge Problem: CHF (congestive heart failure) Patient Disposition: Being Evaluated by Hospitalist Forms Stand Alone Forms: [facility] Prescriptions Prescriptions: No Action cholecalciferol (vitamin D3) [Vitamin D3] 25 mcg (1,000 unit) capsule 2,000 unit PO QAM Qty: 90 0RF cyanocobalamin (vitamin B-12) 1,000 mcg tablet 2,000 mcg PO QAM trospium 60 mg capsule,extended release 24hr 60 mg PO QAM Qty: 90 3RF Rx Instructions: administer 1 hour before a meal clobetasol 0.05 % cream 1 applic topical DAILY Qty: 60 0RF hydrochlorothiazide 25 mg tablet 25 mg PO QAM Qty: 90 1RF bupropion HCl 150 mg tablet sustained-release 12 hr 150 mg PO QAM Qty: 90 1RF hydralazine 50 mg tablet 50 mg PO Q8H Qty: 270 1RF docusate sodium [Colace] 100 mg capsule 100 mg PO DAILY estradiol 0.01 % (0.1 mg/gram) cream 1 g vaginal 2XWK Qty: 42.5 3RF multivitamin [Daily Multi-Vitamin] tablet 1 tab PO QAM (DME) Oxygen Home Liters Per Minute See Dose Instructions .ROUTE .MEDSUPPLY Qty: 1 Rx Instructions: As directed calcium carbonate 500 mg calcium (1,250 mg) Tablet 500 mg PO QAM Patient Comments: 1 TAB PO DAILY; acetaminophen [Tylenol Extra Strength] 500 mg Tablet 1,000 mg PO Q6 PRN (Reason: Pain) nystatin-triamcinolone 100,000-0.1 unit/g-% cream 1 applic topical BID PRN (Reason: Rash) Referrals Referrals: Monica Dobson MD [Primary Care Provider] - Discharge Problem: CHF (congestive heart failure) Qualifiers: Heart failure type: unspecified Heart failure chronicity: unspecified Qualified Code(s): I50.9 - Heart failure, unspecified
--- NOTE | 2023-11-20 17:14 | CT Scan Report ---
CHEST CTA for PULMONARY ARTERIES CT DOSE: 671.5 mGy.cm HISTORY: Shortness of breath. TECHNIQUE: Multiaxial CT images of the chest were performed following the intravenous administration of contrast to evaluate the pulmonary arteries. 3D/Maximal intensity projection images were also obta ined. Sagittal and coronal reformations were also reviewed. A dose lowering technique was utilized a dhering to the principles of ALARA. COMPARISON STUDY: None. FINDINGS: There is an old, healed sternal fracture. No acute fractures identified. Limited views of t he upper abdomen demonstrate a normal liver, spleen, and adrenal glands. There is a small hiatus jayce ia. Normal caliber esophagus. No pleural or pericardial effusions. The heart is mildly enlarged. No m ediastinal or hilar lymphadenopathy. There is a left aortic arch with an aberrant right subclavian ar abrahan. The thoracic aorta is normal and course and caliber with no evidence for dissection. There is m oderate calcified plaque within the aortic arch. There is moderate to severe coronary artery calcific ations noted. Nondiagnostic evaluation of the majority of the lower lobe subsegmental pulmonary arter ies due to the motion artifact. Otherwise, no filling defects within the remaining pulmonary arteries to suggest a pulmonary embolus. No pneumothorax. The central airways are patent. Punctate calcified granuloma seen within the left lower lobe. Mild interlobular septal thickening with faint groundglass densities. This may represent mild congestive change. Bibasilar densities favor dependent change/ate lectasis. IMPRESSION: 1. No evidence for a pulmonary embolus with limitations as described above. 2. Cardiomegaly with mild interlobular septal thickening and faint groundglass densities. This may re present developing congestive change. ACT 112: Negative or not required by law. Electronically signed by: Ray Licona M.D. 11/20/2023 5:13 PM
--- NOTE | 2023-11-20 18:11 | Ultrasound Report ---
BILATERAL LOWER EXTREMITY VENOUS DOPPLER HISTORY: Bilateral lower extremity edema. COMPARISON STUDY: None. FINDINGS: There is normal compressibility, flow, and augmentation within the bilateral lower extremit y deep venous systems. IMPRESSION: No DVT within the right or left lower extremity. ACT 112: Negative or not required by law. Electronically signed by: Ray iLcona M.D. 11/20/2023 6:09 PM
[2023-11-20] MEDS ORDERED: FUROSEMIDE 40 MG/4 ML VIAL IV ONE (19:14)
--- NOTE | 2023-11-20 19:49 | History & Physical Report ---
Date of Service November 20, 2023 Assessment & Plan (1) Localized swelling of both lower legs: Plan: Patient with known history of lower extremity edema. On HCTZ 25 mg QAM. Patient likely with some aspect of fluid overload with LE edema and pulmonary congestion seen on imaging. Workup negative for VTE. Given IV Lasix 40 mg x1. ECHO ordered as there is concern for worsening ejection fraction . Continue home antihypertensives Lasix 40 mg x1 on in ED, additional dosing per day team ECHO ordered Low sodium diet, monitor Is and Os, daily weights (2) Cellulitis of right toe: Plan: Exam concerning for cellulitis of the right toe/foot. No signs of sepsis. MRSA nares pending. Blood cultures ordered. Start CTX for skin/soft tissue infection. Blood cultures MRSA nares CTX started 11/20 (3) Pulmonary congestion: Plan: See above (4) Cardiomegaly: Plan: See above (5) Anemia: Plan: Chronic condition. Stable. Continue to monitor (6) Oxygen desaturation during sleep: Plan: Patient reportedly on oxygen during sleep. Can use as need while inpatient. (7) Sensorineural hearing loss of both ears: Plan: Stable (8) Presence of pessary: Plan: Stable (9) Lichen planus: Plan: Continue home meds. (10) Elevated troponin: Plan: Likely in the setting of fluid overload/demand ischemia. Peaked. No further monitoring indicated. EKG as needed for chest pain. Plan Code status: full DVT ppx: Lovenox 40 mg QD FENGI: Heart Healthy, Low Salt Dispo: MedSurg History of Present Illness Chief Complaint: Lower Extremity Swelling Primary Care Provider: Monica Dobson MD 88 y/o female with a PMHx of HTN, mood disorder, lichen planus, lower extremity edema, urinary incontinence, osteopenia presented with worsening right leg swelling and shortness of breath. In the ED: HDS without oxygen requirement on presentation. Concern for DVT with possible PE. BLE Dopplers and CT Chest PE protocol without signs of VTE or infarct. Signs of pulmonary congestion seen on CT Chest. HsTrop elevated at 138.2. 2 hour f/u 132.9. EKG with ?OH vs lead placement vs LVH. Patient given one time dose of Lasix 40 mg IV as symptoms presumed to be due to hypervolemia. Otherwise labs largely unremarkable. Upon my interview: Patient with several days of worsening shortness of breath and dyspnea on exertion. Patient with known history of pulmonary congestion and lower extremity edema. Patient was previously on Lasix for this, but this worsened urinary incontinence. Now on HCTZ 25 mg QAM. Patient may have also experienced some chest discomfort, but it sounds more like dyspnea. Patient also reports new redness surrounding the right third toe. She did previously have sepsis 2/2 cellulitis on the left leg. Says she follows with podiatry and will occasionally have discomfort when interventions are being done. Allergies Allergy/AdvReac Type Severity Reaction Status Date / Time Penicillins Allergy Unknown DIFFUSE Verified 09/03/23 11:54 RASH Home Medications Medication Instructions Recorded Confirmed Type Oxygen Home #1 ea 07/30/19 09/03/23 History multivitamin (Daily Multi-Vitamin 1 tab PO QAM 07/30/19 11/20/23 History tablet) calcium carbonate 500 mg calcium 500 mg PO QAM 12/22/19 11/20/23 History (1,250 mg) tablet acetaminophen 500 mg tablet 1,000 mg PO Q6 PRN Pain 06/20/20 11/20/23 History (Tylenol Extra Strength) cholecalciferol (vitamin D3) 25 2,000 unit PO QAM #90 caps 08/18/20 11/20/23 Rx mcg (1,000 unit) capsule (Vitamin D3) cyanocobalamin (vitamin B-12) 2,000 mcg PO QAM 08/18/20 11/20/23 History 1,000 mcg tablet docusate sodium 100 mg capsule 100 mg PO DAILY 08/07/22 11/20/23 History (Colace) trospium 60 mg capsule,extended 60 mg PO QAM #90 caps 12/09/22 11/20/23 Rx release 24 hr nystatin-triamcinolone 100,000 1 applic topical BID PRN Rash 04/16/23 11/20/23 History unit/g-0.1 % topical cream clobetasol 0.05 % topical cream 1 applic topical DAILY Rash #60 04/22/23 11/20/23 Rx grams bupropion HCl 150 mg tablet,12 hr 150 mg PO QAM #90 ea 08/29/23 11/20/23 Rx sustained-release hydrochlorothiazide 25 mg tablet 25 mg PO QAM edema #90 tabs 08/29/23 11/20/23 Rx estradiol 0.01% (0.1 mg/gram) 1 g vaginal 2XWK #42.5 grams 09/03/23 11/20/23 Rx vaginal cream hydralazine 50 mg tablet 50 mg PO Q8H #270 tabs 10/03/23 11/20/23 Rx Past Med/Surg History Medical History History of rib fracture (11/11/22) 11th rib fracture. 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 Vaginal prolapse Uterine prolapse Hx of headache History of anemia Hx of actinic keratosis History of anxiety Urinary incontinence Cellulitis recurrent LLE, no current issues Obesity Nocturnal hypoxemia 2L O2 HS as needed Hypertension Arthritis Depression Surgical History History of colonoscopy History of cataract surgery History of oral surgery History of cystoscopy most recent 01/04/19 [place] Status post excision of lipoma Family History Brother Hearing loss Myocardial infarction Hypertension Mother Hearing loss Hypertension Father Hearing loss Hypertension Other Allergies Asthma Heart disease No family history of adverse response to anesthesia No family history of bleeding disorder Denies family history of Colon cancer Ovarian cancer Prostate cancer Breast cancer Colorectal cancer Social History Smoking Status: Never smoker Second Hand Exposure: No; Do You Dip or Chew Tobacco: No; Hx Alcohol Use: No Hx Substance Use: No Preferred Language: Northern Irish Communication Ability: Effective Visual Impairment: No Limitations Hearing Ability: Normal Communications Advisor Required: No Beliefs That Will Affect Care: None marital status: / Current Living Situation: Alone current occupational status: retired Feels Safe at Home: Yes Childhood Exposure to Second-Hand Smoke: No Diet: regular during the past year weight has: remained stable Dental Care, Regularly: Yes Physical Activity Frequency: Does not Exercise Seatbelt Use: always Sunscreen Use: Yes Assistive Devices: Cane, Denture - Upper and Glasses Review of Systems 2 Review of Systems: See HPI Physical Exam 2 Physical Exam: Gen: well appearing, non-toxic appearing female in NAD HEENT: AT NC MMM Resp: diminished breath sounds diffusely, no increased work of breathing, no wheezing noted CV: RRR no m/r/g noted, radial and DP pulses 2+ symmetric, BLE edema - right significantly worse than left, right third toe erythematous with chronic onychomycosis - no warmth, crepitus, or purulence Abd: soft, non-tender, non-distended Neuro: alert and oriented Psych: appropriate mood and affect MSK: no obvious deformities Skin: no rashes or brusing noted Results & Data Results & Data Laboratory Results 11/20/23 14:47 11/20/23 14:47 Diagnostic Findings Chest CTA 11/20/23 16:17 FINDINGS: There is an old, healed sternal fracture. No acute fractures identified. Limited views of the upper abdomen demonstrate a normal liver, spleen, and adrenal glands. There is a small hiatus hernia. Normal caliber esophagus. No pleural or pericardial effusions. The heart is mildly enlarged. No mediastinal or hilar lymphadenopathy. There is a left aortic arch with an aberrant right subclavian artery. The thoracic aorta is normal and course and caliber with no evidence for dissection. There is moderate calcified plaque within the aortic arch. There is moderate to severe coronary artery calcifications noted. Nondiagnostic evaluation of the majority of the lower lobe subsegmental pulmonary arteries due to the motion artifact. Otherwise, no filling defects within the remaining pulmonary arteries to suggest a pulmonary embolus. No pneumothorax. The central airways are patent. Punctate calcified granuloma seen within the left lower lobe. Mild interlobular septal thickening with faint groundglass densities. This may represent mild congestive change. Bibasilar densities favor dependent change/atelectasis. IMPRESSION: 1. No evidence for a pulmonary embolus with limitations as described above. 2. Cardiomegaly with mild interlobular septal thickening and faint groundglass densities. This may represent developing congestive change. Venous Doppler Study 11/20/23 16:17 FINDINGS: There is normal compressibility, flow, and augmentation within the bilateral lower extremity deep venous systems. IMPRESSION: No DVT within the right or left lower extremity. Supervising Physician Co-Signing Physician Notes Attending addendum: I have physically seen this patient, have supervised the medical residents activities, and agree with the H&P unless as otherwise noted. Assessment and Plan: CHF exacerbation/elevated troponin/hypertension- Status post furosemide 40 mg IV from the ED. Further administration pending response to first dose The patient will be admitted to telemetry for serial cardiac enzymes, serial EKG's, cardiac rhythm monitoring and a 2-D echocardiogram with Dopplers. Troponin 132.9, more likely supply/demand mismatch versus ischemia CTA chest negative for PE but does show cardiomegaly and pulmonary vascular congestion Continue hydralazine 50 mg p.o. every 8 hours, HCTZ 25 mg every morning Cellulitis of right foot- Continue ceftriaxone MRSA [id number] blood cultures Negative venous Dopplers bilateral lower extremity Remaining orders and notations as noted Resident Activity Tracking Resident Involvement: Resident Care Provided Care Provided: Adult Hospital Medicine
[2023-11-20] MEDS ORDERED: cefTRIAXone SODIUM 1,000 MG in DEXTROSE 5 % MINI-B 50 ML IV STA (20:27)
[2023-11-20] MEDS ORDERED: ENOXAPARIN INJ 30 MG/0.3 ML SYR SQ SCH (21:00)
[2023-11-20] MEDS ORDERED: ALUMINUM/MAGNESIUM SUSP 30 ML UDC PO PRN (22:17)
[2023-11-20] MEDS ORDERED: ACETAMINOPHEN 325 MG TAB PO PRN (22:17)
[2023-11-20] MEDS ORDERED: POLYETHYLENE (MIRALAX) 17 GM PACK PO PRN (22:17)
[2023-11-20] MEDS ORDERED: MELATONIN 3 MG TAB PO PRN (22:17)
[2023-11-20] MEDS ORDERED: ONDANSETRON INJ 2 MG/ML 2 ML VIAL IV PRN (22:17)
[2023-11-20] MEDS ORDERED: Nursing to Pharmacy Communication SCH (23:45)
[2023-11-20] MEDS: hydrALAZINE TAB 50 MG TAB PO SCH (23:50)
--- NOTE | 2023-11-21 03:55 | Billing Data ---
Date of Service November 21, 2023 Coding Level of Care Code 06899 INT INP/OBS CARE
[2023-11-21] MEDS: hydrALAZINE TAB 50 MG TAB PO SCH ×2 (06:20→14:03)
--- NOTE | 2023-11-21 07:22 | Hospitalist Progress Note ---
Date of Service November 21, 2023 Assessment & Plan (1) Localized swelling of both lower legs: Plan: Patient with known history of lower extremity edema. On HCTZ 25 mg QAM. LE doppler negative for VTE. CTA negative for PE Given IV Lasix 40 mg x1. ECHO pending Continue home antihypertensives Low sodium diet, monitor Is and Os, daily weights (2) Cellulitis of right toe: Plan: Exam concerning for cellulitis of the right toe/foot. No signs of sepsis. . Blood cultures ordered. Ceftiraxone skin/soft tissue infection. Blood cultures obtained (3) Elevated troponin: Plan: no upward trend demand ischemia no acs suspcted (4) Anemia: Plan: Chronic condition. did see hematology felt secondary to renal disease and iron deficiency anemia hgb 10 gm range b12 folate normal this year (5) Oxygen desaturation during sleep: Plan: Patient reportedly on oxygen during sleep. Can use as need while inpatient. Plan Code status: full DVT ppx: Lovenox 40 mg QD Admission and Anticipated Discharge Date Admission Date: November 20, 2023 Results & Data Results & Data Vital Signs (Past 12 Hours) Vital Signs Temp Pulse Pulse Resp BP Pulse Ox O2 Del Method 11/21/23 06:18 78 166/67 H 11/21/23 00:45 Room Air 11/21/23 00:45 97.5 F L 73 18 168/74 H 96 Room Air 11/21/23 00:00 74 18 96 Room Air 11/20/23 23:49 73 19 139/67 96 Room Air PG Care Time/CCT Total # of Minutes Spent Total Time Spent with Patient: Total time spent is greater than 50% in coordination of care (as documented) at patient's floor/unit and/or counseling patient: Coding Diagnoses Localized swelling of both lower legs R22.43 Cellulitis of right toe L03.031 Elevated troponin R79.89 Anemia D64.9 Oxygen desaturation during sleep G47.34
[2023-11-21 07:46] LABS: Hematocrit (blood only) 30.3 % (37.0-47.0); Hemoglobin 10.1 g/dl (12.0-16.0); Mean Corpuscular Hemoglobin 32.1 pg (25.0-34.0); Mean Corpuscular Hgb Conc 33.3 g/dL (32.0-36.0); Mean Corpuscular Volume 96.2 fL (80.0-100.0); Mean Platelet Volume 10.6 fL (9.4-12.4); Platelet Count 300 K/uL (130-400); RDW Coefficient of Variation 13.5 % (11.5-14.5); RDW Standard Deviation 47.7 fL (36.4-46.3); Red Blood Count 3.15 M/uL (4.20-5.40); White Blood Count 4.88 K/ul (4.8-10.8)
[2023-11-21 08:03] LABS: BUN Creatinine Ratio 32.4 (10-20); Calcium 8.6 mg/dl (8.6-10.3); Creatinine Clr Calc Pharmacy 29.6 ml/min; Potassium 3.5 mmol/L (3.5-5.1)
[2023-11-21] MEDS ORDERED: CLOBETASOL PROPIONATE 0.05% CREAM 15 GM TUBE TOP SCH (09:00)
[2023-11-21] MEDS ORDERED: buPROPion SR 150 MG TABCR PO SCH (09:00)
[2023-11-21] MEDS ORDERED: OXYBUTYNIN CHLORIDE XL 5 MG TABCR PO SCH (09:00)
[2023-11-21] MEDS ORDERED: hydroCHLOROthiazide 25 MG TAB PO SCH (09:00)
--- NOTE | 2023-11-21 14:54 | XCELERA ---
[id number]
--- NOTE | 2023-11-21 16:32 | Discharge Summary ---
Date of Service November 21, 2023 Admission HPI Per Admitting Provider 88 y/o female with a PMHx of HTN, mood disorder, lichen planus, lower extremity edema, urinary incontinence, osteopenia presented with worsening right leg swelling and shortness of breath. In the ED: HDS without oxygen requirement on presentation. Concern for DVT with possible PE. BLE Dopplers and CT Chest PE protocol without signs of VTE or infarct. Signs of pulmonary congestion seen on CT Chest. HsTrop elevated at 138.2. 2 hour f/u 132.9. EKG with ?CT vs lead placement vs LVH. Patient given one time dose of Lasix 40 mg IV as symptoms presumed to be due to hypervolemia. Otherwise labs largely unremarkable. Upon my interview: Patient with several days of worsening shortness of breath and dyspnea on exertion. Patient with known history of pulmonary congestion and lower extremity edema. Patient was previously on Lasix for this, but this worsened urinary incontinence. Now on HCTZ 25 mg QAM. Patient may have also experienced some chest discomfort, but it sounds more like dyspnea. Patient also reports new redness surrounding the right third toe. She did previously have sepsis 2/2 cellulitis on the left leg. Says she follows with podiatry and will occasionally have discomfort when interventions are being done. Principal Diagnosis Lower extremity edema resolved Right second toe cellulitis improved Discharge Exam Patient had no edema on my examination to her lower extremities bilaterally Her right second toe was mildly erythematous it was not warm there is minor erythema to the dorsum of her foot this also was not warm or indurated. Patient endorses improvement from presentation Discharge Data Allergies Allergy/AdvReac Type Severity Reaction Status Date / Time Penicillins Allergy Unknown DIFFUSE Verified 09/03/23 11:54 RASH Consultations 11/20/23 19:14 ED Decision to Admit Stat Ordered Studies 11/20/23 16:17 CT angio chest PE protocol Stat US venous doppler LE BI Stat Hospital Course (1) Localized swelling of both lower legs: Patient with known history of lower extremity edema. On HCTZ 25 mg QAM. LE doppler negative for VTE. CTA negative for PE Given IV Lasix 40 mg x1. ECHO showed ejection fraction no regional wall motion abnormalities Continue home antihypertensives, patient robust response to Lasix will resume hydrochlorothiazide and observe a low-salt diet at home Elevating legs is much as possible (2) Cellulitis of right toe: Exam concerning for cellulitis of the right toe/foot. No signs of sepsis. . Blood cultures ordered. Ceftiraxone given x 1 dose will be discharged on Augmentin therapy. Dramatic clinical improvement noted by patient (3) Elevated troponin: no upward trend demand ischemia no acs suspcted (4) Anemia: Chronic condition. did see hematology felt secondary to renal disease and iron deficiency anemia hgb 10 gm range b12 folate normal this year (5) Oxygen desaturation during sleep: Patient reportedly on oxygen during sleep. . Plan Code status: full DVT ppx: Lovenox 40 mg QD Total Time Total Time Spent Total Time Spent (In Minutes): It required greater than 30 minutes to prepare this patient for discharge. Discharge Plan Discharge Items Patient Disposition: Home - Self-Care Reason For Visit: LOWER EXTREMITY SWELLING Discharge Diagnosis: toe and foot infection lower extremity swelling normal heart function on echo Activity: Resume your previous activity Non-emergency contact: Primary Care Provider Call non-emergency contact if: your symptoms worsen Follow-up/Referrals: Monica Dobson MD [Primary Care Provider] - 12/01/23 12:00 pm Diet: Low Sodium (2gm) Addtl Attending Provider Instructions: please have a low salt diet and keep legs elevated when resting complete your antibiotics, follow up with your family doctor Pending Studies at Discharge: No Stand-Alone Forms: My [facility] [employer], Smoking Cessation Medications and DC Order Prescriptions: New cefdinir 300 mg capsule 300 mg PO BID 5 Days Qty: 10 0RF Rx Instructions: took ceftriaxone in hospital Continued cholecalciferol (vitamin D3) [Vitamin D3] 25 mcg (1,000 unit) capsule 2,000 unit PO QAM Qty: 90 0RF cyanocobalamin (vitamin B-12) 1,000 mcg tablet 2,000 mcg PO QAM trospium 60 mg capsule,extended release 24hr 60 mg PO QAM Qty: 90 3RF Rx Instructions: administer 1 hour before a meal clobetasol 0.05 % cream 1 applic topical DAILY Qty: 60 0RF hydrochlorothiazide 25 mg tablet 25 mg PO QAM Qty: 90 1RF bupropion HCl 150 mg tablet sustained-release 12 hr 150 mg PO QAM Qty: 90 1RF hydralazine 50 mg tablet 50 mg PO Q8H Qty: 270 1RF docusate sodium [Colace] 100 mg capsule 100 mg PO DAILY estradiol 0.01 % (0.1 mg/gram) cream 1 g vaginal 2XWK Qty: 42.5 3RF multivitamin [Daily Multi-Vitamin] tablet 1 tab PO QAM (DME) Oxygen Home Liters Per Minute See Dose Instructions .ROUTE .MEDSUPPLY Qty: 1 Rx Instructions: As directed calcium carbonate 500 mg calcium (1,250 mg) Tablet 500 mg PO QAM Patient Comments: 1 TAB PO DAILY; acetaminophen [Tylenol Extra Strength] 500 mg Tablet 1,000 mg PO Q6 PRN (Reason: Pain) nystatin-triamcinolone 100,000-0.1 unit/g-% cream 1 applic topical BID PRN (Reason: Rash) Discharge Orders: Discharge Order (Routine); Ordered 11/21/23 Ordered By: Perez Berg/Other Patient Handouts: Tips for Using Less Salt, Low Salt Diet Dc Admission Data Admit Date/Time: 11/20/23 20:42 Attending Provider: Perez Teran Admit Provider: Cecilia Medina Primary Care Provider: Monica Dobson V. Other Providers: Joe Jewell Other Interventions: Discharge Summary Assessment (RN) Last Done: 11/21/23 16:07 Coding Level of Care Code 26761 INP/OBS DISCH >30 MIN Diagnoses Localized swelling of both lower legs R22.43 Cellulitis of right toe L03.031 Elevated troponin R79.89 Anemia D64.9 Oxygen desaturation during sleep G47.34
[2023-11-21] MEDS ORDERED: cefTRIAXone SODIUM 1,000 MG in DEXTROSE 5 % MINI-B 50 ML IV SCH (22:00)
--- NOTE | 2023-11-27 08:24 | Coding Query ---
CODING QUERY To promote full compliance with coding requirements relating to patient care, provider participation is requested in all cases of set builder uncertainty. Please assist us with the question(s) below: Coding Question(s): Pt admitted with bilateral localized edema and toe cellulitis. Chest CT showed cardiomegaly, possible developing CHF. Echocardiogram normal. Diuretic stopped prior to admission d/t incontinence. IV Lasix given in ED. HCTZ 25 started. . Please document, if known or suspected, the etiology of the patient's localized leg edema.. Thanks for your help! Juan Ramon Barraza, [facility] Physician's Response(s): locALIZED EDEMA HAD RESOLVED WHEN i SAW THE PT, MY SPECULATION IS THAT THIS IS FROM CELLULITIS THAT ALSO HAD RESOLVED Principal Diagnosis: "that condition established after study, to be chiefly responsible for occasioning the admission of the patient to the hospital for care." Co-Existing Principal Diagnosis: "when two or more diagnoses equally meet the criteria for principal diagnosis as determined by the circumstances of admission, diagnostic work up, and/or therapy provided, and the Alphabetic Index, Tabular List, or another coding guideline does not provide sequencing direction, any one of the diagnoses may be sequenced first." "When the physician has documented what appears to be a current diagnosis in the body of the record, but has not included the diagnosis in the final diagnostic statement, the physician should be asked whether the diagnosis should be added." (Source Coding Clinic 2 QTR90. p3-4) ABEL
== END 2023-11-21 18:35 | disposition home or self-care (01) | DRG 603 ==
LOC: ED 14:21 → EDINP 20:42 → SUATTDRO 20:42 → 3N 11-21 00:24

== ENCOUNTER 2024-03-14 11:46 | Inpatient (IN) ==
--- OUTSIDE RECORDS SUMMARY | 2024-03-14 11:48 | External Medical Summary | Continuity of Care Document ---
Author Name Unknown Organization [facility] [place] [id number] Address [address], [place] [id number] Care Team Providers Care Physical Therapy Aide Name Role Phone Monica Castro V Primary Care Ph ysician [phone] [id number] Date(s): 02/26/24 - 02/26/24 [facility] [address] [id number] [facility] [address] [place] [id number] Encounter Diagnosis Hallux valgus of right foot(Discharge Diagnosis) - 02/26/24 Metatarsalgia, right foot(Discharge Diagnosis) - 02/26/24 Right foot pain(Discharge Diagnosis) - 02/26/24 Tinea pedis, right(Discharge Diagnosis) - 02/26/24 Arthritis of both feet(Discharge Diagnosis) - 02/26/24 Tinea pedis(Final) - Discharge Disposition: Home or Self Care Attending Physician: TOBY Casey Christina L Referring Physician: MD Gloria, Monica Hightower Allergies, Adverse Reactions, Alerts Substance Reaction Severity Status penicillins Active Assessment and Plan Extracted from: Title:Follow Up Visit Author:TOBY Casey, Helen Gomez Date:02/26/24 1.Hallux valgus of right foot I discussed with patient today thatI feel she has arthritis of her right foot which is a hallux valgus deformity and hammertoe deformityand provided her with a prescription for orthopedic shoes that should be obtained for andreas Bedoya provided her contact information as well as the prescription,we discussedthat these will support the arthritic changes of her right foot. We walked her to check out and we help to make help her make the appointmentat [facility]. For the tinea pedis inflammatory reaction on the right footI asked her to discontinue clobetasol I prescribed her ketoconazolediscussed this is a likely fungal infectionand fungal cultures. Patient was understanding clinical photos obtained recommend follow-up in 1 month for continued evaluation 29-minute follow-up visit, 8-minute chart review, 21 minutes [id number] 2.Metatarsalgia, right foot 3.Right foot pain 4.Tinea pedis, right 5.Arthritis of both feet Immunizations Given and Recorded Vaccine Date Status Refusal Reason SARS-CoV-2 (COVID-19) mRNA-1273 vaccine 01/02/21 G iven Medications ammonium lactate 12% topical cream Start: 02/26/24 14:16:00 EDT, 1 appl, topical, qAM Start Date: 02/26/24 Status: Ordered aspirin 81 mg oral delayed release tablet Start: 02/26/24 14:15:00 EDT, 1 tab, PO, Daily Start Date: 02/26/24 Status: Ordered Benadryl 25 mg oral capsule Start: 01/22/19 15:25:00 EST, PRN Start Date: 01/22/19 Status: Ordered buPROPion 150 mg/12 hours (SR) oral tablet, extended release Start: 08/13/16 11:33:00, See Instructions, one tab daily Start Date: 08/13/16 Status: Ordered Clobetasol (Eqv-Temovate) 0.05% topical cream Start: 01/08/22 11:41:00 EST Start Date: 01/08/22 Status: Ordered hydrALAZINE 25 mg oral tablet Start: 03/16/20 9:25:00 EDT, 1 tab, PO, bid Start Date: 03/16/20 Status: Ordered hydroCHLOROthiazide 25 mg oral tablet Start: 12/14/19 8:50:00 EST, 1 tab, PO, Daily Start Date: 12/14/19 Status: Ordered hydrocortisone 0.5% topical cream Start: 03/21/20 15:17:00 EDT, 1 appl, topical, Daily, Disp# 30 g, Refills: 1, [facility]acy[facility] Start Date: 03/21/20 Stop Date: 05/20/20 Status: Ordered ketoconazole 2% topical cream Start: 02/26/24 14:33:00 EDT, 1 appl, topical, Daily, Disp# 30 g, Refills: 2, apply to right foot daily, Pharmacy: [id number] Start Date: 02/26/24 Stop Date: 05/26/24 Status: Ordered metoprolol tartrate 25 mg oral tablet Start: 02/26/24 14:14:00 EDT, 0.5 tab, PO, Daily Start Date: 02/26/24 Status: Ordered nystatin-triamcinolone 100,000 units/g-0.1% topical cream Start: 10/03/20 13:09:00 EST, 1 appl, topical, bid Start Date: 10/03/20 Status: Ordered Super Calcium 600 + D3 400 oral tablet Start: 06/19/20 15:02:00 EDT, 1 tab, PO, bid Start Date: 06/19/20 Status: Ordered triamcinolone 0.1% topical cream Start: 01/08/22 11:52:00 EST, 1 appl, topical, bid, Disp# 80 g, Refills: 3, apply to arms, trunk, scalp, [facility]acy: [facility] Start Date: 01/08/22 Status: Ordered trospium 60 mg oral capsule, extended release Start: 08/01/21 10:48:00 EDT, 1 cap, PO, qAM Start Date: 08/01/21 Status: Ordered Tylenol 500 mg oral tablet Start: 02/26/24 14:15:00 EDT, 1 tab, PO, q6h, PRN: as needed for fever Start Date: 02/26/24 Status: Ordered Mental Status 02/26/24 Barriers to Learning one year None evide nt Mandatory Health Literacy Documentation Yes Health Literacy Communication Barriers N ever Primary Language Polish Problem List Condition Confirmation Course Effective Dates Status H ealth Status Informant Arthritis of both feet Confirmed Active Callus Confirmed Active Venous insufficiency Confirmed Active Long toenail Confirmed Active Pain in both feet Confirmed Active Right foot pain Confirmed Active Hallux valgus of right foot Confirmed Active Ingrown toenail of right foot Confirmed Active Atherosclerosis Confirmed Active Lichen planus Confirmed Active Metatarsalgia, right foot Confirmed Active Tinea unguium Confirmed Active Peripheral vascular disease Confirmed Active Skin lesion Confirmed Active Tinea pedis, right Confirmed Active Diagnosis Diagnosis Type Effective Dates Health Status Cl inical Service Informant Hallux valgus of right foot Discharge Diagnosis 02/26/24 Metatarsalgia, right foot Discharge Diagnosis 02/26/24 Arthritis of both feet Discharge Diagnosis 02/26/24 Tinea pedis, right Discharge Diagnosis 02/26/24 Right foot pain Discharge Diagnosis 02/26/24 Procedures Procedure Date Related Diagnosis Body Site Status Shave biopsy and cauterizati on of skin 1 07/24/22 Completed Shave biopsy and cauterization of skin 12/13/20 Completed Cystoscopy 12/2018 Completed Lipoma Completed 1shave ED&C Results Orders for Microbiology Reports Name Date Fungus Culture, Wound w Smear (CULTURE,F UNGUS(WOUND)) 02/26/24 Microbiology Reports TEST:Fungus.Culture, Wound STATUS:Unauthenticated BODY SITE: SOURCE:Wound COLLECTED DATE/TIME:02/26/24 2:33 PM Fungal Direct Exam NO FUNGAL ELEMENTS SEEN Vital Signs Most recent to oldest [Reference Range]: 1 Height 147 cm (02/26/24 2:11 PM) Patient Weight 69.4 kg (02/26/24 2:11 PM) Body Mass Index 32.12 kg/m2 (02/26/24 2:11 PM) Social History Social History Type Response Smoking Status 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 Patienthas a history of hypertensionand had a recent falllast seen by her primary medical doctor today. -Discussionwith patient about what has been going on since we last saw her which wasabout 2 years agosince patient has beenreceiving toenail care at an outside locationshe was recommended to have right foot surgery which she was unsure ofshe then developed swellingand some mild erythema on the dorsal aspect of the right footthere was some concern that this was possibly cellulitis. It is unclear where patient gotclobetasol but she had been usingclobetasol possibly from fromdermatologyand was applying it to her foot she noted she has been having improvement of the erythema on the top part of her foot. She presents today for evaluation of her left foot. Review of Systems Reviewed Objective Vitals & Measurements WT:69.4kg WT:69.400kg(Dosing) Physical Exam Problem focused right foot: Dorsalis pedis pulse difficult to palpate secondary to swellingdistal aspect right foot. Posterior tibial pulse difficult to palpate secondary to swelling, there are trophic skin changes noted tothe right footthere is peeling of the skin on the dorsal part of the right footthere is swelling of the right lower extremity consistent with +1 pitting edema. Pedal hair is absentskin turgor is good to the distal extremities all digits of the right foot. Gross sensation intact to all digits of the right foot. I feel there are 2 different issues concerning patient. Issue #1:Hallux valgus deformity right footwhich is caused a chronic plantar plate injury at the second MPJand rigid hammertoe deformity of the second toe. There is pain associated with the digit secondary to the deformity. And the toe is contracted dorsally. Looking at the x-rays that were obtained likely by family medicine in December of this year. There seems to be some thickening of the second metatarsalthis is likely secondary to chronic pressure from her bunion deformity. I think this is likely the cause of the swelling is fromthe arthritis of her great toecausing the toe contracture and increased pressure of the second metatarsalis unclear if at some point patient may have sustained astress reaction but that is also a possibility for the swelling. Currently on review of the x-rays taken in December there are no fractures. For this issue I do not recommendelective surgery I am unclear as to what surgery was recommended for patientbut I do not feel that she should have any further surgery due to medicalcomorbidities and advanced age as well as likely elementofperipheral arterial disease. Issue #2:Tinea pedis right foot. There appears to be scalingwhich is found in patchy areaswith erythemathe outside of the patchy scaling witherythematous areashas a well-defined border this seems to correlate with tinea pedis present on the dorsal aspect of the right footbut also transverses the anterior ankle. This is likely causing the inflammation and redness which was seenpatient noted improvement with clobetasol which is a topical steroid. I asked patient to please discontinue the clobetasol as continued use of a steroid on the skin is not recommended. Several patient portions of the skin were obtained for fungal cultureto identify a possible fungal infection o n the dorsal aspect of the right foot. Otherwise I did not appreciate any open wounds or lesions to the feet. Images 2024-02-26 14:27:58 2024-02-26 14:28:50 Assessment/Plan 1.Hallux valgus of right foot I discussed with patient today thatI feel she has arthritis of her right foot which is a hallux valgus deformity and hammertoe deformityand provided her with a prescription for orthopedic shoes that should be obtained for andreas riosI provided her contact information as well as the prescription,we discussedthat these will support the arthritic changes of her right foot. We walked her tocheck out and we help to make help her make the appointment[facility]. For the tinea pedis inflammatory reaction on the right footI asked her to discontinue clobetasol I prescribed her ketoconazolediscussed this is a likely fungal infectionand fungal cultures. Patient was understanding clinical photos obtained recommend follow-up in 1 month for continued evaluation 29-minute follow-up visit, 8-minute chart review, 21 minutes [id number] 2.Metatarsalgia, right foot 3.Right foot pain 4.Tinea pedis, right 5.Arthritis of both feet Electronic Signature on File CC: Monica Castro MD [address] [place] [address] * Electronically Reviewed/Signed by: Vandana Casey DPM Author Signature Dt/Tm:02/26/2024 02:49 PM Division of Sports Medicine CLR Patient Care team information Care Team Personnel Name: MD Gloria, Monica Hightower Position: Referring DIRECT Member Role: Primary Care Provider Address: Address: [address] [address] [place] Name: SAMMY Ibarra Lynn Position: Physician Chairman Of The Board Exempt - Vasc Surg Member Role: Lifetime Relationship Address: Address: [address] [place] [address] [place] Name: TOBY Casey, Vandana Gomez Position: Physician - Podiatry Member Role: Lifetime Relationship Address: Address: [address] [address] [place] Name: MD Joel, Sergio Gomez Position: Physician - Derm Member Role: Lifetime Relationship Address: Address: [address] [place] [address], [place] [address] Care Team Related Persons Name: EDDIE UNGER Address: [address] [id number] Name: JENAE UNGER I Address: home [address] [place] [id number]
--- NOTE | 2024-03-14 13:03 | XRay Report ---
XR chest 1V portable HISTORY: Chest pain, nonspecific COMPARISON: Chest 01/07/2024. FINDINGS: No pneumothorax. The heart remains enlarged. There are low lung volumes. Trace bilateral pl eural effusions. Diffuse interstitial/vascular thickening persists. This suggests pulmonary edema. Th ere are calcifications within the aortic knob. No acute fractures. IMPRESSION: Cardiomegaly with trace pleural effusions and mild pulmonary edema. This is similar to the prior stud y. ACT 112: Negative or not required by law. Electronically signed by: Ray Licona M.D. 03/14/2024 1:02 PM
[2024-03-14 13:04] LABS: Basophils # (auto) 0.03 K/uL (0.00-0.20); Basophils % (auto) 0.5 %; Eosinophils # (auto) 0.19 K/uL (0.00-0.50); Eosinophils % (auto) 2.9 %; Hematocrit (blood only) 29.4 % (37.0-47.0); Hemoglobin 9.4 g/dl (12.0-16.0); Immature Granulocytes # (auto) 0.02 K/uL (0.01-0.20); Immature Granulocytes % (auto) 0.3 %; Lymphocytes # (auto) 1.25 K/uL (1.20-3.40); Mean Corpuscular Hemoglobin 31.8 pg (25.0-34.0); Mean Corpuscular Volume 99.3 fL (80.0-100.0); Mean Platelet Volume 10.8 fL (9.4-12.4); Monocytes # (auto) 0.48 K/uL (0.11-0.59); Monocytes % (auto) 7.3 %; Neutrophils # (auto) 4.62 K/uL (1.40-6.50); Platelet Count 305 K/uL (130-400); RDW Coefficient of Variation 14.4 % (11.5-14.5); RDW Standard Deviation 52.1 fL (36.4-46.3); Red Blood Count 2.96 M/uL (4.20-5.40); White Blood Count 6.59 K/ul (4.8-10.8)
[2024-03-14 13:21] LABS: BUN Creatinine Ratio 34.8 (10-20); Calcium 8.6 mg/dl (8.6-10.3); Creatinine Clr Calc Pharmacy 34.6 ml/min; Est GFR (Non-African American) 55.2 ml/min; Potassium 4.2 mmol/L (3.5-5.1)
[2024-03-14 13:35] LABS: INR 1.1 (0.9-1.1); Partial Thromboplastin Ratio 1.1; Partial Thromboplastin Time 31 Seconds (21-31)
[2024-03-14] MEDS: OPTIRAY 320 125ml IV ONE (13:48)
--- NOTE | 2024-03-14 13:56 | Ultrasound Report ---
BILATERAL LOWER EXTREMITY VENOUS DOPPLER HISTORY: Bilateral lower extremity swelling. ro dvt COMPARISON STUDY: None. FINDINGS: There is normal compressibility, flow, and augmentation within the bilateral lower extremit y deep venous systems. IMPRESSION: No DVT within the right or left lower extremity. ACT 112: Negative or not required by law. Electronically signed by: Ray Licona M.D. 03/14/2024 1:55 PM
--- NOTE | 2024-03-14 14:11 | Emergency Department Note ---
History of Present Illness General Chief complaint: Leg Injury/Pain Stated complaint: BILATERAL LEG REDNESS, BURNING Time Seen by Provider: 03/14/24 12:16 History of Present Illness Provider complaint: Bilateral lower extremity swelling and redness difficulty breathing Onset (ago): week(s) 2 Location: lower extremity, left and right Maximum Pain Intensity: 10 Associated symptoms: + shortness of breath 88-year-old female presents to the emergency department for bilateral lower extremity swelling and shortness of breath for 2 weeks. She reports no chest pain. Patient not on any blood thinners. No falls or trauma. No fevers. Home Medications Medication Instructions Recorded Confirmed Type Oxygen Home E0424 #1 ea 07/30/19 01/27/24 History multivitamin (Daily Multi-Vitamin 1 tab PO QAM 07/30/19 03/14/24 History tablet) acetaminophen 500 mg tablet 1,000 mg PO Q6 PRN Pain 06/20/20 03/14/24 History (Tylenol Extra Strength) docusate sodium 100 mg capsule 100 mg PO DAILY 08/07/22 03/14/24 History (Colace) nystatin-triamcinolone 100,000 1 applic topical BID PRN Rash 04/16/23 03/14/24 History unit/g-0.1 % topical cream estradiol 0.01% (0.1 mg/gram) 1 g vaginal 2XWK #42.5 grams 09/03/23 03/14/24 Rx vaginal cream aspirin 81 mg tablet,delayed 81 mg PO DAILY 01/27/24 03/14/24 History release (Adult Aspirin Regimen) ferrous sulfate 325 mg (65 mg 325 mg PO BID 01/27/24 03/14/24 History iron) tablet triamcinolone acetonide 0.1 % 1 applic topical DAILY PRN Other 01/27/24 03/14/24 History lotion ammonium lactate 12 % lotion 1 applic topical DAILY 02/26/24 03/14/24 History hydralazine 50 mg tablet 50 mg PO TID #90 tabs 02/26/24 03/14/24 Rx hydrochlorothiazide 25 mg tablet 25 mg PO DAILY #90 tabs 02/26/24 03/14/24 Rx metoprolol tartrate 25 mg tablet 25 mg PO BID #180 tabs 02/26/24 03/14/24 Rx trospium 60 mg capsule,extended 60 mg PO DAILY 02/26/24 03/14/24 History release 24 hr bupropion HCl 150 mg tablet,12 hr 150 mg PO QAM #90 ea 03/11/24 03/14/24 Rx sustained-release ketoconazole 2 % topical cream 1 applic topical UD 03/14/24 03/14/24 History Allergies Allergy/AdvReac Type Severity Reaction Status Date / Time Penicillins Allergy Intermediate DIFFUSE Verified 02/26/24 13:32 RASH Past Med/Surg History Medical History Elevated troponin Cellulitis of right toe Pulmonary congestion History of rib fracture (11/11/22) 11th rib fracture. 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 Vaginal prolapse Uterine prolapse Hx of headache History of anemia Hx of actinic keratosis History of anxiety Urinary incontinence Cellulitis recurrent LLE, no current issues Obesity Nocturnal hypoxemia 2L O2 HS as needed Hypertension Arthritis Surgical History History of colonoscopy History of cataract surgery History of oral surgery History of cystoscopy most recent 01/04/19 [place] Status post excision of lipoma Family History Brother Hearing loss Myocardial infarction Hypertension Mother Hearing loss Hypertension Father Hearing loss Hypertension Other Allergies Asthma Heart disease No family history of adverse response to anesthesia No family history of bleeding disorder Denies family history of Colon cancer Ovarian cancer Prostate cancer Breast cancer Colorectal cancer Social History Smoking Status: Never smoker Second Hand Exposure: No; Do You Dip or Chew Tobacco: No; Hx Alcohol Use: No Hx Substance Use: No Preferred Language: Zambian Communication Ability: Effective Visual Impairment: No Limitations Hearing Ability: Normal Film Editor Required: No Beliefs That Will Affect Care: None marital status: / Current Living Situation: Alone current occupational status: retired Feels Safe at Home: Yes Childhood Exposure to Second-Hand Smoke: No Diet: regular during the past year weight has: remained stable Dental Care, Regularly: Yes Physical Activity Frequency: Does not Exercise Seatbelt Use: always Sunscreen Use: Yes Assistive Devices: Cane, Oxygen - at Night and Walker Physical Exam Vital Signs Vital Signs - 24 hr 03/14/24 11:46 03/14/24 11:46 03/14/24 12:46 Temperature 36.6 C Temperature Source Oral Pulse Rate 61 Pulse Rate [Apical] Respiratory Rate 18 18 Blood Pressure 131/57 L Blood Pressure [Left Arm] Blood Pressure Mean 81 Blood Pressure Mean [Left Arm] Pulse Oximetry 95 96 Sepsis Recent Fever Within 48 Hours No Sepsis New/Unexplained Change in Mental Status N/A Sepsis Action Taken by Nursing No Action Required 03/14/24 14:07 Temperature Temperature Source Pulse Rate Pulse Rate [Apical] 66 Respiratory Rate 18 Blood Pressure Blood Pressure [Left Arm] 153/77 H Blood Pressure Mean Blood Pressure Mean [Left Arm] 102 Pulse Oximetry 95 Sepsis Recent Fever Within 48 Hours Sepsis New/Unexplained Change in Mental Status Sepsis Action Taken by Nursing Physical Exam GENERAL: oriented to person, place, and time. appears well-developed and well- nourished. HENT: Exam performed. - Head: Normocephalic and atraumatic. EYES: Conjunctivae and EOM are normal. Right eye exhibits no discharge. Left eye exhibits no discharge. No scleral icterus. NECK: Normal range of motion. Neck supple. No JVD present. CV: Normal rate, regular rhythm, normal heart sounds and intact distal pulses. Palpable radial pulses bue. PULM/CHEST: Mild inspiratory rales. ABD: The abdomen is soft. There is no tenderness. NEURO: Motor and sensation grossly intact. MUSC: Swelling of the right lower extremity greater than left lower extremity. Mild redness to the right lower extremity around abrasions. On the right lower extremity anteriorly. SKIN: Skin is warm and dry. He is not diaphoretic. PSYCH: normal mood and affect. Behavior is normal. Judgment and thought content normal. Course Course 1216: The patient was evaluated in room . A complete history and physical exam was performed Cardiac monitoring: An order was placed for continuous cardiac monitoring. The monitor shows a rate of 50 with sinus rhythm interpreted by me 1437: Vital signs stable. Labs show hemoglobin of 9.4. High-sensitivity troponin is 20. Patient not reporting any chest pain at this time. proBNP 2438. Ultrasound negative for DVT. CT of the chest negative for PE but does show pulmonary edema. Patient will be given Lasix 40 mg IV push. Discussed the case with Dr. Larson [facility] hospitalist who states he will admit the patient to his service. Administered Medications Discontinued Medications Ioversol (Optiray 320 125ml) 119 ml IV ONCE ONE Stop: 03/14/24 13:49 Last Admin: 03/14/24 13:48 Dose: 119 ml Documented By: JESSICA Medical Decision Making Laboratory Data Attestation: I reviewed the patient's lab results. 03/14/24 12:41 03/14/24 12:41 Lab Results 03/14/24 Range/Units 12:41 WBC 6.59 (4.8-10.8) K/ul RBC 2.96 L (4.20-5.40) M/uL Hgb 9.4 L (12.0-16.0) g/dl Hct 29.4 L (37.0-47.0) % MCV 99.3 (80.0-100.0) fL MCH 31.8 (25.0-34.0) pg MCHC 32.0 (32.0-36.0) g/dL RDW Std Deviation 52.1 H (36.4-46.3) fL RDW Coeff of Lul 14.4 (11.5-14.5) % Plt Count 305 (130-400) K/uL MPV 10.8 (9.4-12.4) fL Immature Gran % (Auto) 0.3 % Neut % (Auto) 70.0 % Lymph % (Auto) 19.0 % [place] % (Auto) 7.3 % Eos % (Auto) 2.9 % Baso % (Auto) 0.5 % Neut # (Auto) 4.62 (1.40-6.50) K/uL Lymph # (Auto) 1.25 (1.20-3.40) K/uL [place] # (Auto) 0.48 (0.11-0.59) K/uL Eos # (Auto) 0.19 (0.00-0.50) K/uL Baso # (Auto) 0.03 (0.00-0.20) K/uL Immature Gran # (Auto) 0.02 (0.01-0.20) K/uL PT 12.0 (9.0-12.0) Seconds INR 1.1 (0.9-1.1) APTT 31 (21-31) Seconds PTT Ratio 1.1 Sodium 138 (136-145) mmol/L Potassium 4.2 (3.5-5.1) mmol/L Chloride 104 (98-107) mmol/L Carbon Dioxide 28 (21-32) mmol/L Anion Gap 6 (3-11) BUN 32 H (6-23) mg/dl Creatinine 0.92 (0.6-1.2) mg/dl Est Cr Clr Drug Dosing 34.6 ml/min Est GFR ( Amer) 64.0 ml/min Est GFR (Non-Af Amer) 55.2 ml/min BUN/Creatinine Ratio 34.8 H (10-20) Glucose 96 (70-99(Fasting)) mg/dl Calcium 8.6 (8.6-10.3) mg/dl Troponin I High Sens 20.0 H (0-14) pg/ml B-Natriuretic Peptide 2438 H (0-100) pg/ml Lipase 24 (11-82) U/L SARS-CoV-2, RNA, NAAT NEGATIVE (NEGATIVE) Imaging Data Attestation: I personally reviewed and interpreted this imaging study as follows: My Impression: Chest x-ray: Pulmonary edema Radiologist's Impression: Venous Doppler Study 03/14/24 12:23 BILATERAL LOWER EXTREMITY VENOUS DOPPLER HISTORY: Bilateral lower extremity swelling. ro dvt COMPARISON STUDY: None. FINDINGS: There is normal compressibility, flow, and augmentation within the bilateral lower extremity deep venous systems. IMPRESSION: No DVT within the right or left lower extremity. ACT 112: Negative or not required by law. Electronically signed by: Ray Licona M.D. 03/14/2024 1:55 PM Chest CTA 03/14/24 12:24 CHEST CTA for PULMONARY ARTERIES CT DOSE: 568.63 mGy.cm HISTORY: Shortness of breath. Chest Pain, eval for PE TECHNIQUE: Multiaxial CT images of the chest were performed following the intravenous administration of contrast to evaluate the pulmonary arteries. 3D/Maximal intensity projection images were also obtained. Sagittal and coronal reformations were also reviewed. A dose lowering technique was utilized adhering to the principles of ALARA. COMPARISON STUDY: Chest CT 01/07/2024. FINDINGS: Inadequate contrast within the thoracic aorta to evaluate for a dissection. However, the thoracic aorta is normal in course and caliber demonstrating moderate calcified plaque. 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 There are severe coronary artery calcifications. The heart is mildly enlarged. Small bilateral pleural effusions. No pericardial effusion. Respiratory motion artifact results in nondiagnostic evaluation of the majority of the bibasilar subsegmental pulmonary arteries. However, the remaining arteries show no filling defects to suggest a pulmonary embolus. Limited views the upper abdomen demonstrate normal liver and spleen. There is a tiny hiatus hernia. Normal caliber esophagus. Mild body wall edema is noted. No hilar lymphadenopathy. Prominent mediastinal lymph nodes remain stable and may be due to chronic pulmonary edema. No acute fractures identified. Old, healed left posterior rib fractures. There is an old, healed sternal fracture. No pneumothorax. The central airways are patent. There is diffuse interlobular septal thickening with round glass airspace opacities consistent with pulmonary edema. A 5 mm groundglass nodular density within the right middle lobe on image 69. This may be due to the pulmonary edema. IMPRESSION: 1. No evidence for a pulmonary embolus with limitations as described above. 2. Cardiomegaly with pulmonary edema and small bilateral pleural effusions. 3. Additional findings as described above. ACT 112: Negative or not required by law. Electronically signed by: Ray Licona M.D. 03/14/2024 2:12 PM Chest X-Ray 03/14/24 12:24 XR chest 1V portable HISTORY: Chest pain, nonspecific COMPARISON: Chest 01/07/2024. FINDINGS: No pneumothorax. The heart remains enlarged. There are low lung volumes. Trace bilateral pleural effusions. Diffuse interstitial/vascular thickening persists. This suggests pulmonary edema. There are calcifications within the aortic knob. No acute fractures. IMPRESSION: Cardiomegaly with trace pleural effusions and mild pulmonary edema. This is similar to the prior study. ACT 112: Negative or not required by law. Electronically signed by: Ray Licona M.D. 03/14/2024 1:02 PM ECG Data Attestation: I personally reviewed and interpreted this ECG as follows: Rate (beats per minute): 54 Rhythm: + sinus bradycardia ECG Intervals/blocks: + Normal QRS, + Normal IL and + Normal QT-c ECG ST segments: + Normal ST segments and + T-wave inversions [facility] Narrative 1216: The patient was evaluated in room . A complete history and physical exam was performed Cardiac monitoring: An order was placed for continuous cardiac monitoring. The monitor shows a rate of 50 with sinus rhythm interpreted by me 1437: Vital signs stable. Labs show hemoglobin of 9.4. High-sensitivity troponin is 20. Patient not reporting any chest pain at this time. proBNP 2438. Ultrasound negative for DVT. CT of the chest negative for PE but does show pulmonary edema. Patient will be given Lasix 40 mg IV push. Discussed the case with Dr. Larson [facility] hospitalist who states he will admit the patient to his service. Impression & Plan CHF exacerbation Discharge Plan Visit Data Chief Complaint: Leg Injury/Pain Stated Complaint: BILATERAL LEG REDNESS, BURNING ED Provider: Darien Castro Discharge Problem: CHF exacerbation Patient Disposition: Admitted As Inpatient Forms Stand Alone Forms: [facility] Prescriptions Prescriptions: No Action bupropion HCl 150 mg tablet sustained-release 12 hr 150 mg PO QAM Qty: 90 1RF docusate sodium [Colace] 100 mg capsule 100 mg PO DAILY estradiol 0.01 % (0.1 mg/gram) cream 1 g vaginal 2XWK Qty: 42.5 3RF ammonium lactate 12 % lotion 1 applic topical DAILY trospium 60 mg capsule,extended release 24hr 60 mg PO DAILY Rx Instructions: must be taken on empty stomach at least 1 hour before a meal/food with water only metoprolol tartrate 25 mg tablet 25 mg PO BID Qty: 180 1RF hydralazine 50 mg tablet 50 mg PO TID Qty: 90 5RF hydrochlorothiazide 25 mg tablet 25 mg PO DAILY Qty: 90 1RF multivitamin [Daily Multi-Vitamin] tablet 1 tab PO QAM (DME) Oxygen Home E0424 Liters Per Minute See Dose Instructions .ROUTE .MEDSUPPLY Qty: 1 Rx Instructions: As directed aspirin [Adult Aspirin Regimen] 81 mg tablet,delayed release (DR/EC) 81 mg PO DAILY ferrous sulfate 325 mg (65 mg iron) tablet 325 mg PO BID triamcinolone acetonide 0.1 % lotion 1 applic topical DAILY PRN (Reason: Other) acetaminophen [Tylenol Extra Strength] 500 mg Tablet 1,000 mg PO Q6 PRN (Reason: Pain) nystatin-triamcinolone 100,000-0.1 unit/g-% cream 1 applic topical BID PRN (Reason: Rash) ketoconazole 2 % cream 1 applic TOPICAL UD Referrals Referrals: Monica Dobson MD [Primary Care Provider] -
--- NOTE | 2024-03-14 14:15 | CT Scan Report ---
CHEST CTA for PULMONARY ARTERIES CT DOSE: 568.63 mGy.cm HISTORY: Shortness of breath. Chest Pain, eval for PE TECHNIQUE: Multiaxial CT images of the chest were performed following the intravenous administration of contrast to evaluate the pulmonary arteries. 3D/Maximal intensity projection images were also obta ined. Sagittal and coronal reformations were also reviewed. A dose lowering technique was utilized a dhering to the principles of ALARA. COMPARISON STUDY: Chest CT 01/07/2024. FINDINGS: Inadequate contrast within the thoracic aorta to evaluate for a dissection. However, the th oracic aorta is normal in course and caliber demonstrating moderate calcified plaque. There is an aries rrant right subclavian artery again noted. There are severe coronary artery calcifications. The heart is mildly enlarged. Small bilateral pleural effusions. No pericardial effusion. Respiratory motion a rtifact results in nondiagnostic evaluation of the majority of the bibasilar subsegmental pulmonary a rteries. However, the remaining arteries show no filling defects to suggest a pulmonary embolus. Limi jaxson views the upper abdomen demonstrate normal liver and spleen. There is a tiny hiatus hernia. Bhargavi l caliber esophagus. Mild body wall edema is noted. No hilar lymphadenopathy. Prominent mediastinal l ymph nodes remain stable and may be due to chronic pulmonary edema. No acute fractures identified. Ol d, healed left posterior rib fractures. There is an old, healed sternal fracture. No pneumothorax. Th e central airways are patent. There is diffuse interlobular septal thickening with round glass airspa ce opacities consistent with pulmonary edema. A 5 mm groundglass nodular density within the right mid dle lobe on image 69. This may be due to the pulmonary edema. IMPRESSION: 1. No evidence for a pulmonary embolus with limitations as described above. 2. Cardiomegaly with pulmonary edema and small bilateral pleural effusions. 3. Additional findings as described above. ACT 112: Negative or not required by law. Electronically signed by: Ray Licona M.D. 03/14/2024 2:12 PM
[2024-03-14] MEDS: FUROSEMIDE 40 MG/4 ML VIAL IV ONE (14:57)
--- NOTE | 2024-03-14 15:11 | History & Physical Report ---
Date of Service March 14, 2024 Assessment & Plan (1) Acute diastolic CHF (congestive heart failure): Plan: Parenteral Lasix diuresis. Monitor intake and output. Serial chest x-ray (2) Bilateral cellulitis of lower leg: Plan: Parenteral Cipro, day 1. She is allergic to penicillin (3) Sinus bradycardia: Plan: Telemetry. Metoprolol dosage down titrated. Check thyroid profile Plan To be determined. Obtain OT and PT assessments when appropriate History of Present Illness Chief Complaint: Dyspnea on exertion, bilateral lower extremity redness and tenderness Primary Care Provider: Monica Dobson MD 88-year-old white female in no distress. She presents to the ED because she has bilateral lower extremity edema and redness below the knees. She also has dyspnea on exertion. She denies chest discomfort. Chest x-ray is consistent with congestive heart failure. She had a cardiac echo in December of this year which revealed mild LVH and ejection fraction 50 to 55%. No significant valvular abnormalities. She clinically has bilateral lower extremity cellulitis below the knees which she has had before. She is allergic to penicillin. She is also mildly sinus bradycardic. Thyroid profile is pending. Metoprolol dosage will be down titrated. She is now on intravenous Lasix. Allergies Allergy/AdvReac Type Severity Reaction Status Date / Time Penicillins Allergy Intermediate DIFFUSE Verified 02/26/24 13:32 RASH Home Medications Medication Instructions Recorded Confirmed Type Oxygen Home E0424 #1 ea 07/30/19 01/27/24 History multivitamin (Daily Multi-Vitamin 1 tab PO QAM 07/30/19 03/14/24 History tablet) acetaminophen 500 mg tablet 1,000 mg PO Q6 PRN Pain 06/20/20 03/14/24 History (Tylenol Extra Strength) docusate sodium 100 mg capsule 100 mg PO DAILY 08/07/22 03/14/24 History (Colace) nystatin-triamcinolone 100,000 1 applic topical BID PRN Rash 04/16/23 03/14/24 History unit/g-0.1 % topical cream estradiol 0.01% (0.1 mg/gram) 1 g vaginal 2XWK #42.5 grams 09/03/23 03/14/24 Rx vaginal cream aspirin 81 mg tablet,delayed 81 mg PO DAILY 01/27/24 03/14/24 History release (Adult Aspirin Regimen) ferrous sulfate 325 mg (65 mg 325 mg PO BID 01/27/24 03/14/24 History iron) tablet triamcinolone acetonide 0.1 % 1 applic topical DAILY PRN Other 01/27/24 03/14/24 History lotion ammonium lactate 12 % lotion 1 applic topical DAILY 02/26/24 03/14/24 History hydralazine 50 mg tablet 50 mg PO TID #90 tabs 02/26/24 03/14/24 Rx hydrochlorothiazide 25 mg tablet 25 mg PO DAILY #90 tabs 02/26/24 03/14/24 Rx metoprolol tartrate 25 mg tablet 25 mg PO BID #180 tabs 02/26/24 03/14/24 Rx trospium 60 mg capsule,extended 60 mg PO DAILY 02/26/24 03/14/24 History release 24 hr bupropion HCl 150 mg tablet,12 hr 150 mg PO QAM #90 ea 03/11/24 03/14/24 Rx sustained-release ketoconazole 2 % topical cream 1 applic topical UD 03/14/24 03/14/24 History Past Med/Surg History Medical History Elevated troponin Cellulitis of right toe Pulmonary congestion History of rib fracture (11/11/22) 11th rib fracture. 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 Vaginal prolapse Uterine prolapse Hx of headache History of anemia Hx of actinic keratosis History of anxiety Urinary incontinence Cellulitis recurrent LLE, no current issues Obesity Nocturnal hypoxemia 2L O2 HS as needed Hypertension Arthritis Surgical History History of colonoscopy History of cataract surgery History of oral surgery History of cystoscopy most recent 01/04/19 [place] Status post excision of lipoma Family History Brother Hearing loss Myocardial infarction Hypertension Mother Hearing loss Hypertension Father Hearing loss Hypertension Other Allergies Asthma Heart disease No family history of adverse response to anesthesia No family history of bleeding disorder Denies family history of Colon cancer Ovarian cancer Prostate cancer Breast cancer Colorectal cancer Social History Smoking Status: Never smoker Second Hand Exposure: No; Do You Dip or Chew Tobacco: No; Hx Alcohol Use: No Hx Substance Use: No Preferred Language: Mongolian Communication Ability: Effective Visual Impairment: No Limitations Hearing Ability: Normal Ssrs Developer Required: No Beliefs That Will Affect Care: None marital status: / Current Living Situation: Alone current occupational status: retired Feels Safe at Home: Yes Childhood Exposure to Second-Hand Smoke: No Diet: regular during the past year weight has: remained stable Dental Care, Regularly: Yes Physical Activity Frequency: Does not Exercise Seatbelt Use: always Sunscreen Use: Yes Assistive Devices: Cane, Oxygen - at Night and Walker Review of Systems 2 Review of Systems: Constitutional-no fever or chills ENT-no blurred vision, no double vision, no epistaxis, no sore throat Respiratory-no cough, no wheezing. Dyspnea on exertion. She denies orthopnea Cardiac-no palpitations, no chest pain, no syncope GI-no nausea, vomiting, diarrhea, melena, hematochezia -no urinary retention, no urinary incontinence, no dysuria, no hematuria Musculoskeletal-no joint pain, no muscle tenderness. 1+ pitting edema bilateral lower extremities below the knees Skin-bilateral lower extremity erythema below the knees with several nondraining scabbed areas and associated tenderness Neuro-no isolated weakness, no paresthesia Psych-no depression, no anxiety Physical Exam 2 Physical Exam: General-alert and oriented x3, no fever, no chills HEENT-head atraumatic and normocephalic, pupils equal and reactive to light, extraocular muscles intact Neck-no lymphadenopathy or thyromegaly, trachea midline Chest-bibasilar inspiratory rales. No dullness to percussion. No wheezing or rhonchi Cardiac-slightly bradycardic regular rate and rhythm, normal S1 and S2 Abdomen-normal bowel sounds, no hepatosplenomegaly Extremities-1+ pitting edema bilateral lower extremities below the knees. Bilateral erythema below the knees with several scabbed over areas without drainage Neuro-cranial nerves II through XII intact, motor and sensory function within normal limits, strength symmetrical and consistent with a, no focal deficits Psych-normal affect, normal mood Results & Data Results & Data Vital Signs (Past 12 Hours) Vital Signs Temp Pulse Pulse Resp BP BP Pulse Ox 03/14/24 14:07 66 18 153/77 H 95 03/14/24 12:46 96 03/14/24 11:46 18 03/14/24 11:46 36.6 C 61 18 131/57 L 95 Laboratory Results 03/14/24 12:41 03/14/24 12:41 Code Status & VTE Plan Code Status Full code PG Care Time/CCT Total # of Minutes Spent Total Time Spent with Patient: Total time spent is greater than 50% in coordination of care (as documented) at patient's floor/unit and/or counseling patient: Coding Level of Care Code 82350 INT INP/OBS CARE 3/75MIN Diagnoses Acute diastolic CHF (congestive heart failure) I50.31 Bilateral cellulitis of lower leg L03.116; L03.115 Sinus bradycardia R00.1
[2024-03-14] MEDS ORDERED: ONDANSETRON INJ 2 MG/ML 2 ML VIAL IV PRN (17:02)
[2024-03-14] MEDS: FUROSEMIDE 40 MG/4 ML VIAL IV SCH (17:34)
[2024-03-14] MEDS: CIPROFLOXACIN / D5W 400 MG/200 ML BAG IV SCH (18:02)
[2024-03-14 19:22] LABS: BUN Creatinine Ratio 24.6 (10-20); Creatinine Clr Calc Pharmacy 26.7 ml/min; Est GFR (African American) 47.4 ml/min; Est GFR (Non-African American) 40.9 ml/min; Potassium 3.7 mmol/L (3.5-5.1)
[2024-03-14 19:40] LABS: T4 Free Thyroxine 1.05 ng/dl (0.61-1.60)
[2024-03-14] MEDS: hydrALAZINE TAB 50 MG TAB PO SCH (20:11)
[2024-03-14] MEDS: METOPROLOL TARTRATE 25 MG TAB PO SCH (20:12)
[2024-03-14] MEDS: FERROUS SULFATE 325 MG TAB PO SCH (20:12)
[2024-03-14] MEDS: HEPARIN SOD 5,000 UNIT/0.5 ML VIAL SQ SCH (20:13)
[2024-03-15] MEDS: ACETAMINOPHEN 500 MG TAB PO PRN (03:25)
[2024-03-15 07:25] LABS: BUN Creatinine Ratio 25.6 (10-20); Calcium 8.5 mg/dl (8.6-10.3); Est GFR (African American) 45.9 ml/min; Est GFR (Non-African American) 39.6 ml/min; Potassium 3.7 mmol/L (3.5-5.1)
--- NOTE | 2024-03-15 08:46 | Electrocardiogram Report ---
Test Reason : Blood Pressure : / mmHG Vent. Rate : 054 BPM Atrial Rate : 054 BPM P-R Int : 192 ms QRS Dur : 082 ms QT Int : 440 ms P-R-T Axes : 068 102 -27 degrees QTc Int : 417 ms Suspect some type of lead reversal Suggest repeat Sinus bradycardia No other analysis attempted Abnormal ECG When compared with ECG of 07-JAN-2024 01:42, Significant changes have occurred unless lead reversal is present Confirmed by Anand Lance ([id number]) on 03/15/2024 8:46:27 AM Referred By: Confirmed By:Anand Lance
[2024-03-15] MEDS: ASPIRIN 81 MG ECTAB PO SCH (09:03)
[2024-03-15] MEDS: DOCUSATE SODIUM 100 MG CAP PO SCH (09:03)
[2024-03-15] MEDS: MULTIVITAMIN TAB PO SCH (09:03)
[2024-03-15] MEDS: PANTOprazole 40 MG TAB PO SCH (09:03)
[2024-03-15] MEDS: AMMONIUM LACTATE 12% LOTION 225 GM BTL EXT SCH (09:04)
--- NOTE | 2024-03-15 12:42 | Hospitalist Progress Note ---
Date of Service March 15, 2024 Assessment & Plan (1) Acute diastolic CHF (congestive heart failure): Plan: Improving with parenteral Lasix diuresis. Monitor intake and output. Repeat portable chest x-ray again tomorrowMarch 16 recent cardiac echo reveals ejection fraction of 50 to 55% (2) Bilateral cellulitis of lower leg: Plan: Improving with parenteral Cipro, day 2. She is allergic to penicillin (3) Sinus bradycardia: Plan: Telemetry. Metoprolol dosage has been down titrated and heart rate has already improved. Thyroid profile is normal. Plan Hopeful discharge to home tomorrow, March 16. OT and PT evaluations requested. Admission and Anticipated Discharge Date Admission Date: March 14, 2024 Subjective Alert and oriented. She states she feels better. Diuresing well with parenteral Lasix. She is ambulating in the room. Heart rate has improved with down titration of the metoprolol. She remains on room air. Will repeat portable chest x-ray again tomorrow, March 16. OT and PT assessments have been requested. The cellulitic process in both lower legs looks better also. Ciprofloxacin day 2. Review of Systems 2 Review of Systems: Constitutional-no fever or chills ENT-no blurred vision, no double vision, no epistaxis, no sore throat Respiratory-no cough, no wheezing. Dyspnea on exertion. She denies orthopnea Cardiac-no palpitations, no chest pain, no syncope GI-no nausea, vomiting, diarrhea, melena, hematochezia -no urinary retention, no urinary incontinence, no dysuria, no hematuria Musculoskeletal-no joint pain, no muscle tenderness. 1+ pitting edema bilateral lower extremities below the knees has improved since admission Skin-bilateral lower extremity erythema below the knees has improved since admission, with several nondraining scabbed areas and associated tenderness Neuro-no isolated weakness, no paresthesia Psych-no depression, no anxiety Physical Exam 2 Physical Exam: General-alert and oriented x3, no fever, no chills HEENT-head atraumatic and normocephalic, pupils equal and reactive to light, extraocular muscles intact Neck-no lymphadenopathy or thyromegaly, trachea midline Chest-bibasilar inspiratory rales. No dullness to percussion. No wheezing or rhonchi Cardiac-slightly bradycardic regular rate and rhythm, normal S1 and S2 Abdomen-normal bowel sounds, no hepatosplenomegaly Extremities-1+ pitting edema bilateral lower extremities below the knees has improved. Bilateral erythema below the knees has improved with several scabbed over areas without drainage Neuro-cranial nerves II through XII intact, motor and sensory function within normal limits, strength symmetrical and consistent with a, no focal deficits Psych-normal affect, normal mood Results & Data Results & Data Vital Signs (Past 12 Hours) Vital Signs Temp Pulse Pulse Resp BP BP Pulse Ox 03/15/24 11:35 36.4 C L 56 L 18 121/64 96 03/15/24 09:00 03/15/24 07:43 36.7 C 62 18 149/47 H 96 03/15/24 07:00 65 03/15/24 03:36 36.8 C 65 16 152/65 H 95 O2 Del Method 03/15/24 11:35 Room Air 03/15/24 09:00 Room Air 03/15/24 07:43 Room Air 03/15/24 07:00 03/15/24 03:36 Room Air Laboratory Results 03/14/24 12:41 03/15/24 06:39 PG Care Time/CCT Total # of Minutes Spent Total Time Spent with Patient: Total time spent is greater than 50% in coordination of care (as documented) at patient's floor/unit and/or counseling patient: Coding Level of Care Code 91242 SUB INP/OBS CARE 3/50MIN Diagnoses Acute diastolic CHF (congestive heart failure) I50.31 Bilateral cellulitis of lower leg L03.116; L03.115 Sinus bradycardia R00.1
[2024-03-16 07:11] LABS: BUN Creatinine Ratio 28.1 (10-20); Calcium 8.5 mg/dl (8.6-10.3); Creatinine Clr Calc Pharmacy 25.5 ml/min; Est GFR (African American) 45.9 ml/min; Est GFR (Non-African American) 39.6 ml/min; Potassium 3.4 mmol/L (3.5-5.1)
--- NOTE | 2024-03-16 11:45 | Discharge Summary ---
Date of Service March 16, 2024 Admission HPI Per Admitting Provider 88-year-old white female in no distress. She presents to the ED because she has bilateral lower extremity edema and redness below the knees. She also has dyspnea on exertion. She denies chest discomfort. Chest x-ray is consistent with congestive heart failure. She had a cardiac echo in December of this year which revealed mild LVH and ejection fraction 50 to 55%. No significant valvular abnormalities. She clinically has bilateral lower extremity cellulitis below the knees which she has had before. She is allergic to penicillin. She is also mildly sinus bradycardic. Thyroid profile is pending. Metoprolol dosage will be down titrated. She is now on intravenous Lasix. Principal Diagnosis Acute diastolic CHF, bilateral lower extremity cellulitis, sinus bradycardia Discharge Exam General-alert and oriented x3, no fever, no chills HEENT-head atraumatic and normocephalic, pupils equal and reactive to light, extraocular muscles intact Neck-no lymphadenopathy or thyromegaly, trachea midline Chest-bibasilar inspiratory rales. No dullness to percussion. No wheezing or rhonchi Cardiac-bradycardia has resolved. Regular rate and rhythm, normal S1 and S2 Abdomen-normal bowel sounds, no hepatosplenomegaly Extremities-1+ pitting edema bilateral lower extremities below the knees has resolved . Bilateral erythema below the knees has resolved. Several scabbed over areas without drainage Neuro-cranial nerves II through XII intact, motor and sensory function within normal limits, strength symmetrical and consistent with a, no focal deficits Psych-normal affect, normal mood Discharge Data Allergies Allergy/AdvReac Type Severity Reaction Status Date / Time Penicillins Allergy Intermediate DIFFUSE Verified 02/26/24 13:32 RASH Consultations 03/14/24 14:26 ED Decision to Admit Stat Ordered Studies 03/14/24 12:23 US venous doppler LE BI Stat 03/14/24 12:24 CT angio chest PE protocol Stat Hospital Course (1) Acute diastolic CHF (congestive heart failure): Resolved with parenteral Lasix diuresis. Monitor intake and output. Will switch hydrochlorothiazide to oral Lasix at discharge. Recent cardiac echo reveals ejection fraction of 50 to 55% (2) Bilateral cellulitis of lower leg: Much improved with parenteral Cipro, day 3. She is allergic to penicillin. She will continue oral Cipro floxacillin at discharge for 5 more days (3) Sinus bradycardia: Telemetry. Metoprolol dosage has been down titrated and heart rate has now normalized. Thyroid profile is normal. Plan Home today, March 16. Total Time Total Time Spent Total Time Spent (In Minutes): 45 minutes Discharge Plan Discharge Items Patient Disposition: Home - Self-Care Reason For Visit: CHF, POSSIBLE BILAT LE CELLULITIS Discharge Diagnosis: Acute diastolic CHF, bilateral lower extremity cellulitis below the knees, sinus bradycardia Activity: Resume your previous activity Non-emergency contact: Primary Care Provider Call non-emergency contact if: your symptoms worsen Follow-up/Referrals: Monica Dobson MD [Primary Care Provider] - 03/23/24 1:30 pm Diet: Regular and Heart Healthy Addtl Attending Provider Instructions: Hydrochlorothiazide has been switched to Lasix 40 mg once a day, taken in the early afternoon right after lunch. Take ciprofloxacin antibiotic for 5 more days. Metoprolol has been decreased to 12.5 mg twice daily Pending Studies at Discharge: No Stand-Alone Forms: [facility] Edventory, Smoking Cessation Medications and DC Order Prescriptions: New metoprolol tartrate 25 mg Tablet 12.5 mg PO BID Qty: 60 0RF furosemide [Lasix] 40 mg tablet 40 mg PO DAILY Qty: 30 0RF ciprofloxacin HCl [Cipro] 500 mg tablet 500 mg PO BID Qty: 10 0RF Continued bupropion HCl 150 mg tablet sustained-release 12 hr 150 mg PO QAM Qty: 90 1RF docusate sodium [Colace] 100 mg capsule 100 mg PO DAILY estradiol 0.01 % (0.1 mg/gram) cream 1 g vaginal 2XWK Qty: 42.5 3RF ammonium lactate 12 % lotion 1 applic topical DAILY trospium 60 mg capsule,extended release 24hr 60 mg PO DAILY Rx Instructions: must be taken on empty stomach at least 1 hour before a meal/food with water only hydralazine 50 mg tablet 50 mg PO TID Qty: 90 5RF hydrochlorothiazide 25 mg tablet 25 mg PO DAILY Qty: 90 1RF multivitamin [Daily Multi-Vitamin] tablet 1 tab PO QAM (DME) Oxygen Home E0424 Liters Per Minute See Dose Instructions .ROUTE .MEDSUPPLY Qty: 1 Rx Instructions: As directed aspirin [Adult Aspirin Regimen] 81 mg tablet,delayed release (DR/EC) 81 mg PO DAILY ferrous sulfate 325 mg (65 mg iron) tablet 325 mg PO BID triamcinolone acetonide 0.1 % lotion 1 applic topical DAILY PRN (Reason: Other) acetaminophen [Tylenol Extra Strength] 500 mg Tablet 1,000 mg PO Q6 PRN (Reason: Pain) nystatin-triamcinolone 100,000-0.1 unit/g-% cream 1 applic topical BID PRN (Reason: Rash) ketoconazole 2 % cream 1 applic TOPICAL UD Discontinued metoprolol tartrate 25 mg tablet 25 mg PO BID Qty: 180 1RF Discharge Orders: Discharge Order- CHF (Routine); Ordered 03/16/24 Ordered By: Simone Castorena Admission Data Admit Date/Time: 03/14/24 14:50 Attending Provider: Simone Castoerna Admit Provider: Simone Castorena Primary Care Provider: Monica Dboson V. Other Providers: Simone Castorena Coding Level of Care Code 54260 INP/OBS DISCH >30 MIN Diagnoses Acute diastolic CHF (congestive heart failure) I50.31 Bilateral cellulitis of lower leg L03.116; L03.115 Sinus bradycardia R00.1
--- NOTE | 2024-03-16 12:08 | XRay Report ---
SINGLE VIEW CHEST CLINICAL HISTORY: Congestive heart failure. FINDINGS: An AP, portable, upright chest radiograph is compared to chest x-ray and chest CT dated 02/16. The heart is enlarged noting atherosclerotic calcification of the thoracic aorta. There is pu lmonary vascular congestion and mild interstitial edema. There are small pleural effusions with depen dent consolidation. No pneumothorax is seen. The skeletal structures are osteopenic. There is chronic deformity of the left proximal humerus. Degenerative change is noted in the shoulders and spine.. IMPRESSION: 1. Cardiomegaly with evidence of congestive failure. This is similar to the 03/14/2024 examination. 2. Small pleural effusions with dependent consolidation. ACT 112: Negative or not required by law. Electronically signed by: Simone Rodriguez M.D. 03/16/2024 12:06 PM
== END 2024-03-16 14:01 | disposition home health service (06) | DRG 291 ==
LOC: ED 11:46 → 2N 14:50

== ENCOUNTER 2024-04-24 19:48 | Inpatient (IN) ==
--- NOTE | 2024-04-24 20:45 | Emergency Department Note ---
Impression & Plan SOB (shortness of breath), Pneumonia, Rhinovirus infection, Elevated troponin, Leukocytosis, History of CHF (congestive heart failure) ED Provider Note NAME: SAMANTHA UNGER AGE: 88 SEX: F : 1935 ARRIVES VIA: Walk-In INFORMANT: [Patient] ED PROVIDER(S): [Simone Cardozo MD] CHIEF COMPLAINT: Flulike symptoms HISTORY OF PRESENT ILLNESS: The patient is an 88-year-old female with a history of CHF. She has had a cough for just over a week. Things seem to start in her nose and face and then moved to the lungs. She has a productive cough although, she is not bringing up as much sputum as she was initially. She has not had any fever. There has been no vomiting. She has noticed some exertional dyspnea. The patient states that she has not had any sick contacts. She is on diuretics for CHF and has been taking them as prescribed. The patient's grandson was concerned about her cough and her complaints of shortness of breath, she came for an evaluation at his advice. PMHx/PSHx/Social Hx: See Below PHYSICAL EXAM: GENERAL: Patient is in no acute distress. HEENT: No acute trauma, normocephalic atraumatic, mucous membranes moist, moderate nasal congestion. NECK: No stridor, no adenopathy, no meningismus, trachea is midline. LUNGS: There are wheezes and crackles bilaterally, breath sounds on the left seem diminished compared to the right. No obvious respiratory distress. HEART: Without murmurs gallops or rubs, regular rate and rhythm. ABDOMEN: Soft, nontender, no peritonitis. EXTREMITIES: No cyanosis, full range of motion of all the joints without pain or difficulty. Mild bilateral pedal edema. NEUROLOGIC: Oriented x 3, no acute motor or sensory deficits, no focal weakness. SKIN: No jaundice, no diaphoresis. DIFFERENTIAL DIAGNOSIS: Bronchitis or pneumonia, CHF, viral illness, anemia, cardiac ischemia, among others. EMERGENCY DEPARTMENT PROCEDURES: MEDICAL DECISION MAKING: There is a mild leukocytosis which would be consistent with infection. The patient is anemic however, this is a baseline finding for her. There is a normal platelet count. No coagulopathy. No renal failure or significant electrolyte abnormality. Lactic acid level is not elevated making severe sepsis less likely. No concerning liver enzyme elevation. ECG shows a sinus rhythm, no obvious ischemia. Cardiac enzyme testing x 1 is slightly elevated, this troponin elevation could be secondary to cardiac injury or potentially mismatch given her dyspnea. The troponin will need trended. BNP was elevated consistent with some fluid overload and her history of CHF. Chest x-ray shows some parenchymal congestion with what appears to be a left greater than right lower lobe infiltrate. Respiratory bio fire was positive for rhinovirus. On exam, the patient had wheezes and crackles bilaterally. She was initially mildly tachycardic. The patient was given albuterol via MDI, she was ordered for a DuoNeb, she received IV ceftriaxone as antibiotic therapy. Patient is 88 years of age, she has a history of CHF. She has a white count elevation, she has a elevation to her troponin and appears to have pneumonia, she returned positive for rhinovirus. I believe she requires a hospital stay/further care. I spoke with the patient and case management, the on-call hospitalist was consulted. Prior/Outside records/notes reviewed: Heart failure clinic note from 04/22/2024 discussing her CHF history and the plan moving forward. ECG per my interpretation: Indication was shortness of breath. The ECG shows a normal sinus rhythm with a rate of 90. There is some nonspecific ST change. There is poor R wave progression. There is no acute ST elevation. No PVCs. The QTc is 435. Continuous Cardiac Monitoring per my interpretation: An order was placed for continuous cardiac monitoring. The monitor shows a rate of 102 with sinus tachycardia. Imaging/x-ray results per my interpretation: Chest x-ray shows what appears to be a potential left lower lung pneumonia. There is some congestion also at the right lower lung. No pneumothorax. Chronic Medical/Social conditions affecting care: Advanced age, history of CHF. Care/Management discussed with: Case management, the on-call hospitalist. Level of care consideration(s): After review of the information above and other included data: --I believe the patient requires escalation of care to admission DISPOSITION: Admission Past Med/Surg History Problem List (Updated 04/24/24 @ 22:28 by Simone Cardozo MD) History of CHF (congestive heart failure) (Acute) Leukocytosis (Acute) Elevated troponin (Acute) Rhinovirus infection (Acute) Pneumonia (Acute) SOB (shortness of breath) (Acute) (HFpEF) heart failure with preserved ejection fraction Acute on chronic heart failure with preserved ejection fraction (HFpEF) Bilateral lower extremity edema Sinus bradycardia Bilateral cellulitis of lower leg Acute diastolic CHF (congestive heart failure) SOB (shortness of breath) Cardiomegaly Vaginal polyp Presence of pessary Rectocele Encounter for annual routine gynecological examination Anemia Lesion of external ear canal Xerosis cutis (Acute) Vitamin D deficiency disease (Acute) Vitamin B12 deficiency (Acute) Urinary incontinence (Acute) Tongue burning sensation (Acute) Tinnitus (Acute) Oxygen desaturation during sleep (Acute) Osteopenia (Acute) Murmur (Acute) Iron deficiency anemia (Acute) Internal hemorrhoids (Acute) Hypertension (Acute) Hearing loss (Acute) Gait disturbance (Acute) Diverticulosis (Acute) Depression (Acute) Carotid bruit (Acute) Arthritis (Acute) Actinic keratosis (Acute) Localized swelling of both lower legs Hearing loss Excessive cerumen in both ear canals Sensorineural hearing loss of both ears Lesion of external auditory canal 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 Skin tear of right upper arm without complication Trapezius muscle spasm Impacted cerumen, left ear CKD (chronic kidney disease) Incontinence Finger numbness rt hand Rash Left carpal tunnel syndrome Recurrent cellulitis of lower extremity Hx of headache History of anemia Hx of actinic keratosis History of anxiety Urinary incontinence Cellulitis recurrent LLE, no current issues Obesity Nocturnal hypoxemia 2L O2 HS as needed Hypertension Surgical History History of colonoscopy History of cataract surgery History of oral surgery History of cystoscopy most recent 01/04/19 [place] Status post excision of lipoma Family History Brother Hearing loss Myocardial infarction Hypertension Mother Hearing loss Hypertension Father Hearing loss Hypertension Other Allergies Asthma Heart disease No family history of adverse response to anesthesia No family history of bleeding disorder Denies family history of Colon cancer Ovarian cancer Prostate cancer Breast cancer Colorectal cancer Social History Smoking Status: Never smoker Second Hand Exposure: No; Do You Dip or Chew Tobacco: No; Hx Alcohol Use: No Hx Substance Use: No Preferred Language: Setswana Communication Ability: Effective Visual Impairment: No Limitations Hearing Ability: Normal Sales Floor Team Leader Required: No Beliefs That Will Affect Care: None marital status: / Current Living Situation: Alone current occupational status: retired Feels Safe at Home: Yes Childhood Exposure to Second-Hand Smoke: No Diet: regular during the past year weight has: remained stable Dental Care, Regularly: Yes Physical Activity Frequency: Does not Exercise Seatbelt Use: always Sunscreen Use: Yes Assistive Devices: Glasses and Walker Allergies Allergies Allergy/AdvReac Type Severity Reaction Status Date / Time Penicillins Allergy Intermediate DIFFUSE Verified 04/24/24 21:30 RASH Home Meds Home Medications Medication Instructions Recorded Confirmed Oxygen Home #1 ea 07/30/19 04/22/24 acetaminophen 500 mg tablet 1,000 mg PO Q6 PRN Pain 06/20/20 04/24/24 (Tylenol Extra Strength) docusate sodium 100 mg capsule 100 mg PO DAILY 08/07/22 04/24/24 (Colace) nystatin-triamcinolone 100,000 1 applic topical BID PRN Rash 04/16/23 04/24/24 unit/g-0.1 % topical cream aspirin 81 mg tablet,delayed 81 mg PO DAILY 01/27/24 04/24/24 release (Adult Aspirin Regimen) triamcinolone acetonide 0.1 % 1 applic topical DAILY PRN 01/27/24 04/24/24 lotion RASH/SKIN IRRITATION ammonium lactate 12 % lotion 1 applic topical DAILY 02/26/24 04/24/24 ketoconazole 2 % topical cream 1 applic topical UD PRN Skin 03/14/24 04/24/24 Irritation furosemide 40 mg tablet (Lasix) 40 mg PO .QAFTERNOON 04/05/24 04/24/24 Previous Rx's Medication Instructions Recorded estradiol 0.01% (0.1 mg/gram) 1 g vaginal 2XWK #42.5 grams 09/03/23 vaginal cream hydralazine 50 mg tablet 50 mg PO TID #90 tabs 02/26/24 bupropion HCl 150 mg tablet,12 hr 150 mg PO QAM #90 ea 03/11/24 sustained-release empagliflozin 10 mg tablet 10 mg PO DAILY #30 tabs 04/22/24 (Jardiance) Results & Data (ED) Vital Signs Vital Signs - 24 hr 04/24/24 19:59 04/24/24 20:51 04/24/24 20:53 Temperature 37.3 C Temperature Source Temporal Artery Scan Pulse Rate 103 H 93 H Pulse Rhythm Regular Pulse Strength Normal Respiratory Rate 20 Respiratory Effort / Characteristics Non-Labored Spontaneous Respiratory Depth Normal Blood Pressure 125/67 Blood Pressure Mean 86 Blood Pressure Position Sitting Pulse Oximetry 93 96 Oxygen Delivery Method Room Air Room Air Sepsis Recent Fever Within 48 Hours No Sepsis New/Unexplained Change in Mental Status N/A Sepsis Action Taken by Nursing No Action Required Home Medications Current Medication List: was personally reviewed by me Laboratory Data Attestation: I reviewed the patient's lab results. 04/24/24 20:45 04/24/24 20:45 Lab Results 04/24/24 04/24/24 Range/Units 20:04 20:45 WBC 11.73 H (4.8-10.8) K/ul RBC 3.36 L (4.20-5.40) M/uL Hgb 10.5 L (12.0-16.0) g/dl Hct 32.3 L (37.0-47.0) % MCV 96.1 (80.0-100.0) fL MCH 31.3 (25.0-34.0) pg MCHC 32.5 (32.0-36.0) g/dL RDW Std Deviation 51.2 H (36.4-46.3) fL RDW Coeff of Lul 14.6 H (11.5-14.5) % Plt Count 177 (130-400) K/uL MPV 12.3 (9.4-12.4) fL Immature Gran % (Auto) 0.4 % Neut % (Auto) 71.0 % Lymph % (Auto) 18.4 % Anderson % (Auto) 7.5 % Eos % (Auto) 2.4 % Baso % (Auto) 0.3 % Neut # (Auto) 8.32 H (1.40-6.50) K/uL Lymph # (Auto) 2.16 (1.20-3.40) K/uL Anderson # (Auto) 0.88 H (0.11-0.59) K/uL Eos # (Auto) 0.28 (0.00-0.50) K/uL Baso # (Auto) 0.04 (0.00-0.20) K/uL Immature Gran # (Auto) 0.05 (0.01-0.20) K/uL PT 11.4 (9.0-12.0) Seconds INR 1.1 (0.9-1.1) APTT 32 H (21-31) Seconds PTT Ratio 1.2 Sodium 135 L (136-145) mmol/L Potassium 4.0 (3.5-5.1) mmol/L Chloride 100 (98-107) mmol/L Carbon Dioxide 26 (21-32) mmol/L Anion Gap 9 (3-11) BUN 27 H (6-23) mg/dl Creatinine 1.06 (0.6-1.2) mg/dl Est Cr Clr Drug Dosing 27.3 ml/min Est GFR ( Amer) 53.9 ml/min Est GFR (Non-Af Amer) 46.5 ml/min BUN/Creatinine Ratio 25.5 H (10-20) Glucose 95 (70-99(Fasting)) mg/dl Lactate 1.2 (0.4-2.0) mmol/L Calcium 9.1 (8.6-10.3) mg/dl Total Bilirubin 0.6 (0.2-1.0) mg/dl AST 16 (13-39) U/L ALT 8 (7-52) U/L Alkaline Phosphatase 84 (34-104) U/L Troponin I High Sens 32.7 H (0-14) pg/ml B-Natriuretic Peptide 641 H (0-100) pg/ml Total Protein 7.3 (6.0-8.3) gm/dl Albumin 3.9 (3.4-5.0) gm/dl Globulin 3.4 (2.5-4.0) gm/dl Albumin/Globulin Ratio 1.1 (0.9-2) Adenovirus (PCR) Not Detected (NotDetected) B. pertussis DNA (PCR) Not Detected (NotDetected) B.parapertussis DNA PCR Not Detected (NotDetected) C. pneumoniae DNA (PCR) Not Detected (NotDetected) Coronavirus OC43 (PCR) Not Detected (NotDetected) Coronavirus HKU1 (PCR) Not Detected (NotDetected) Coronavirus 229E (PCR) Not Detected (NotDetected) SARS-CoV-2 (PCR) Not Detected (NotDetected) Coronavirus NL63 (PCR) Not Detected (NotDetected) Human Metapneumovir PCR Not Detected (NotDetected) Influenza Type A (PCR) Not Detected (NotDetected) Influenza Type B (PCR) Not Detected (NotDetected) M. pneumoniae (PCR) Not Detected (NotDetected) Parainfluenza 1 (PCR) Not Detected (NotDetected) Parainfluenza 2 (PCR) Not Detected (NotDetected) Parainfluenza 3 (PCR) Not Detected (NotDetected) Parainfluenza 4 (PCR) Not Detected (NotDetected) RSV (PCR) Not Detected (NotDetected) Entero/Rhino (PCR) DETECTED A (NotDetected) Administered Medications Discontinued Medications Albuterol (Albuterol Hfa 8 Gm Inhaler) 2 puffs INH NOW ONE Stop: 04/24/24 20:35 Last Admin: 04/24/24 21:07 Dose: 2 puffs Documented By: MÓNICA Discharge Plan Visit Data Chief Complaint: Flu Like Symptoms Stated Complaint: COUGH, CONGESTION ED Provider: Simone Cardozo Discharge Problem: SOB (shortness of breath), Pneumonia, Rhinovirus infection, Elevated troponin, Leukocytosis, History of CHF (congestive heart failure) Patient Disposition: Admitted As Inpatient Condition: Fair Forms Stand Alone Forms: My [facility] Prescriptions Prescriptions: No Action bupropion HCl 150 mg tablet sustained-release 12 hr 150 mg PO QAM Qty: 90 1RF docusate sodium [Colace] 100 mg capsule 100 mg PO DAILY estradiol 0.01 % (0.1 mg/gram) cream 1 g vaginal 2XWK Qty: 42.5 3RF ammonium lactate 12 % lotion 1 applic topical DAILY hydralazine 50 mg tablet 50 mg PO TID Qty: 90 5RF (DME) Oxygen Home Liters Per Minute See Dose Instructions .ROUTE .MEDSUPPLY Qty: 1 Rx Instructions: As directed aspirin [Adult Aspirin Regimen] 81 mg tablet,delayed release (DR/EC) 81 mg PO DAILY triamcinolone acetonide 0.1 % lotion 1 applic topical DAILY PRN (Reason: RASH/SKIN IRRITATION) furosemide [Lasix] 40 mg tablet 40 mg PO .QAFTERNOON Jardiance 10 mg tablet 10 mg PO DAILY Qty: 30 2RF Rx Instructions: PER PT "DID NOT START YET". acetaminophen [Tylenol Extra Strength] 500 mg Tablet 1,000 mg PO Q6 PRN (Reason: Pain) nystatin-triamcinolone 100,000-0.1 unit/g-% cream 1 applic topical BID PRN (Reason: Rash) ketoconazole 2 % cream 1 applic TOPICAL UD PRN (Reason: Skin Irritation) Referrals Referrals: Monica Dobson MD [Primary Care Provider] - Discharge Problem: Pneumonia Qualifiers: Pneumonia type: due to unspecified organism Laterality: left Lung location: l ower lobe of lung Qualified Code(s): J18.9 - Pneumonia, unspecified organism Leukocytosis Qualifiers: Leukocytosis type: unspecified Qualified Code(s): D72.829 - Elevated white blood cell count, unspecified
[2024-04-24] MEDS: ALBUTEROL HFA 8 GM INHALER INH ONE (21:07)
[2024-04-24 21:10] LABS: Adenovirus PCR Not Detected (NotDetected); Bordetella parapertussis PCR Not Detected (NotDetected); Bordetella pertussis PCR Not Detected (NotDetected); Chlamydia pneumoniae PCR Not Detected (NotDetected); Coronavirus 229E PCR Not Detected (NotDetected); Coronavirus CoV-2 (COVID19)PCR Not Detected (NotDetected); Coronavirus HKU1 PCR Not Detected (NotDetected); Coronavirus NL63 PCR Not Detected (NotDetected); Coronavirus OC43PCR Not Detected (NotDetected); Human Metapneumovirus PCR Not Detected (NotDetected); Influenza A PCR Not Detected (NotDetected); Influenza B PCR Not Detected (NotDetected); Mycoplasma pneumoniae PCR Not Detected (NotDetected); Parainfluenza Virus 1 PCR Not Detected (NotDetected); Parainfluenza Virus 2 PCR Not Detected (NotDetected); Parainfluenza Virus 3 PCR Not Detected (NotDetected); Parainfluenza Virus 4 PCR Not Detected (NotDetected); Respiratory Syncytial VirusPCR Not Detected (NotDetected); Rhinovirus/Enterovirus PCR DETECTED (NotDetected)
[2024-04-24 21:20] LABS: Basophils # (auto) 0.04 K/uL (0.00-0.20); Basophils % (auto) 0.3 %; Eosinophils # (auto) 0.28 K/uL (0.00-0.50); Eosinophils % (auto) 2.4 %; Hematocrit (blood only) 32.3 % (37.0-47.0); Hemoglobin 10.5 g/dl (12.0-16.0); Immature Granulocytes # (auto) 0.05 K/uL (0.01-0.20); Immature Granulocytes % (auto) 0.4 %; Lymphocytes # (auto) 2.16 K/uL (1.20-3.40); Lymphocytes % (auto) 18.4 %; Mean Corpuscular Hemoglobin 31.3 pg (25.0-34.0); Mean Corpuscular Hgb Conc 32.5 g/dL (32.0-36.0); Mean Corpuscular Volume 96.1 fL (80.0-100.0); Mean Platelet Volume 12.3 fL (9.4-12.4); Monocytes # (auto) 0.88 K/uL (0.11-0.59); Monocytes % (auto) 7.5 %; Neutrophils # (auto) 8.32 K/uL (1.40-6.50); Platelet Count 177 K/uL (130-400); RDW Coefficient of Variation 14.6 % (11.5-14.5); RDW Standard Deviation 51.2 fL (36.4-46.3); Red Blood Count 3.36 M/uL (4.20-5.40); White Blood Count 11.73 K/ul (4.8-10.8)
[2024-04-24 21:22] LABS: Albumin Globulin Ratio 1.1 (0.9-2); Albumin Level 3.9 gm/dl (3.4-5.0); BUN Creatinine Ratio 25.5 (10-20); Bilirubin,Total 0.6 mg/dl (0.2-1.0); Calcium 9.1 mg/dl (8.6-10.3); Creatinine Clr Calc Pharmacy 27.3 ml/min; Est GFR (African American) 53.9 ml/min; Est GFR (Non-African American) 46.5 ml/min; Globulin 3.4 gm/dl (2.5-4.0); Total Protein 7.3 gm/dl (6.0-8.3)
[2024-04-24 21:28] LABS: Troponin I High Sensitivity 32.7 pg/ml (0-14)
[2024-04-24 21:46] LABS: INR 1.1 (0.9-1.1); Partial Thromboplastin Ratio 1.2; Partial Thromboplastin Time 32 Seconds (21-31); Prothrombin Time 11.4 Seconds (9.0-12.0)
[2024-04-24] MEDS: cefTRIAXone SODIUM 2,000 MG/50 ML BAG IV STA (22:22)
[2024-04-24] MEDS: ALBUT/IPRATROP 3MG/0.5MG NEB 3 ML VIAL NEB STA (22:22)
--- NOTE | 2024-04-24 22:50 | History & Physical Report ---
Date of Service April 24, 2024 Assessment & Plan (1) Pneumonia: Plan: 88yo female presents with 8-9 days of productive cough, fevers last week now resolved. Patient POSITIVE for Enterovirus infection. Findings on CXR with possible LLL PNA. -Admit to medical -Follow cultures sent from ER -Maintain isolation precautions - droplet -Ceftriaxone 1gm IV daily -Azithromycin -Tylenol PRN -Robitussin DM PRN -Albuterol PRN (2) Rhinovirus infection: Plan: Enterovirus on respiratory biofire panel -Maintain droplet isolation -Supportive care - Tylenol, Zofran, Robitussin (3) Elevated troponin: Plan: Patient with elevated troponin 32.7 --> 68.3. Some initial EKG changes now resolved. Patient denies chest pain -Continue to trend troponin to peak -Continue ASA -Heparin gtt if patient develops chest discomfort Plan CHF - patient seems to be euvolemic overall. Her weight is near her dry weight -Continue to monitor I/Os -Daily weights -Continue Lasix 40mg po daily -Continue Hydralazine Hypertension - blood pressure stable -Continue Hydralazine 50mg po TID F/E/N - Saline lock. Electrolytes WNL. Heart healthy diet as tolerated Ppx - Lovenox for DVT Code - Full Dispo - Admit to medical History of Present Illness Chief Complaint: cough, SOB Primary Care Provider: Monica Dobson MD Bridget Styles is an 88yo female with history fo CKD, HTN and HFpEF presenting from home with 8-9 days of cough. She reports that the cough was initially productive for thick, purulent sputum but has most recently been light yellow in color. No hemoptysis. She has some chest tightness and wheezing as well as shortness of breath. She reports an elevated temperature last week but has not had a fever since. She denies orthopnea, edema or weight gain. Her last Echocardiogram from 01/07/24 with EF of 50-55% and pulmonary hypertension. Patient follows with Heart failure clinic. Most recently seen on 04/22/24. She has been stable - has occasional NAYAK and edema but neither currently. Her dry weight is 132#. Today she is 129.8#. She was prescribed Jardiance but has not yet started taking it. In the ER she is afebrile, tachycardic, adequate oxygenation on room air ER Course: ALbuterol 2 puffs Albuterol 3mL/ neb Ceftriaxone 2gm Azithromycin Allergies Allergy/AdvReac Type Severity Reaction Status Date / Time Penicillins Allergy Intermediate DIFFUSE Verified 04/24/24 21:30 RASH Home Medications Medication Instructions Recorded Confirmed Type Oxygen Home #1 ea 07/30/19 04/22/24 History acetaminophen 500 mg tablet 1,000 mg PO Q6 PRN Pain 06/20/20 04/24/24 History (Tylenol Extra Strength) docusate sodium 100 mg capsule 100 mg PO DAILY 08/07/22 04/24/24 History (Colace) nystatin-triamcinolone 100,000 1 applic topical BID PRN Rash 04/16/23 04/24/24 History unit/g-0.1 % topical cream estradiol 0.01% (0.1 mg/gram) 1 g vaginal 2XWK #42.5 grams 09/03/23 04/24/24 Rx vaginal cream aspirin 81 mg tablet,delayed 81 mg PO DAILY 01/27/24 04/24/24 History release (Adult Aspirin Regimen) triamcinolone acetonide 0.1 % 1 applic topical DAILY PRN 01/27/24 04/24/24 History lotion RASH/SKIN IRRITATION ammonium lactate 12 % lotion 1 applic topical DAILY 02/26/24 04/24/24 History hydralazine 50 mg tablet 50 mg PO TID #90 tabs 02/26/24 04/24/24 Rx bupropion HCl 150 mg tablet,12 hr 150 mg PO QAM #90 ea 03/11/24 04/24/24 Rx sustained-release ketoconazole 2 % topical cream 1 applic topical UD PRN Skin 03/14/24 04/24/24 History Irritation furosemide 40 mg tablet (Lasix) 40 mg PO .QAFTERNOON 04/05/24 04/24/24 History empagliflozin 10 mg tablet 10 mg PO DAILY #30 tabs 04/22/24 04/24/24 Rx (Jardiance) Past Med/Surg History Problem List History of CHF (congestive heart failure) (Acute) Leukocytosis (Acute) Elevated troponin (Acute) Rhinovirus infection (Acute) Pneumonia (Acute) SOB (shortness of breath) (Acute) (HFpEF) heart failure with preserved ejection fraction Acute on chronic heart failure with preserved ejection fraction (HFpEF) Bilateral lower extremity edema Sinus bradycardia Bilateral cellulitis of lower leg Acute diastolic CHF (congestive heart failure) SOB (shortness of breath) Cardiomegaly Vaginal polyp Presence of pessary Rectocele Encounter for annual routine gynecological examination Anemia Lesion of external ear canal Xerosis cutis (Acute) Vitamin D deficiency disease (Acute) Vitamin B12 deficiency (Acute) Urinary incontinence (Acute) Tongue burning sensation (Acute) Tinnitus (Acute) Oxygen desaturation during sleep (Acute) Osteopenia (Acute) Murmur (Acute) Iron deficiency anemia (Acute) Internal hemorrhoids (Acute) Hypertension (Acute) Hearing loss (Acute) Gait disturbance (Acute) Diverticulosis (Acute) Depression (Acute) Carotid bruit (Acute) Arthritis (Acute) Actinic keratosis (Acute) Localized swelling of both lower legs Hearing loss Excessive cerumen in both ear canals Sensorineural hearing loss of both ears Lesion of external auditory canal 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 Skin tear of right upper arm without complication Trapezius muscle spasm Impacted cerumen, left ear CKD (chronic kidney disease) Incontinence Finger numbness rt hand Rash Left carpal tunnel syndrome Recurrent cellulitis of lower extremity Hx of headache History of anemia Hx of actinic keratosis History of anxiety Urinary incontinence Cellulitis recurrent LLE, no current issues Obesity Nocturnal hypoxemia 2L O2 HS as needed Hypertension Surgical History History of colonoscopy History of cataract surgery History of oral surgery History of cystoscopy most recent 01/04/19 [place] Status post excision of lipoma Family History Brother Hearing loss Myocardial infarction Hypertension Mother Hearing loss Hypertension Father Hearing loss Hypertension Other Allergies Asthma Heart disease No family history of adverse response to anesthesia No family history of bleeding disorder Denies family history of Colon cancer Ovarian cancer Prostate cancer Breast cancer Colorectal cancer Social History Smoking Status: Never smoker Second Hand Exposure: No; Do You Dip or Chew Tobacco: No; Hx Alcohol Use: No Hx Substance Use: No Preferred Language: Maltese Communication Ability: Effective Visual Impairment: No Limitations Hearing Ability: Normal Intelligence Intern Required: No Beliefs That Will Affect Care: None marital status: / Current Living Situation: Alone Current Living Situation Comment: Lives alone, son is able to help care for patient when needed. current occupational status: retired Other Information That Helps Us Care for You: No Feels Safe at Home: Yes Safety Concerns: Feels Safe At This Time Childhood Exposure to Second-Hand Smoke: No Diet: regular during the past year weight has: remained stable Dental Care, Regularly: Yes Physical Activity Frequency: Does not Exercise Seatbelt Use: always Sunscreen Use: Yes Assistive Devices: Cane and Hospital Bed Review of Systems Review of Systems: All systems reviewed & are unremarkable except as noted in HPI & below Physical Exam Physical Exam: General: patient with frequent coughing, oriented x 3 Skin: warm, dry, intact, no rashes or lesions HEENT: NC/AT, PERRL, EOMI, anicteric sclera, conjunctiva without injection, external ear normal to inspection and nontender, nares patent, moist mucus membranes, dentition intact, no oropharyngeal lesions, neck supple, trachea midline, no LAD, no thyromegaly, no JVD Heart: +S1/S2, regular, tachycardic, no m/r/g Lungs: equal air entry bilaterally, coarse breath sounds in bilateral bases with scattered wheezing Abd: +BS, soft, NT/ND, no masses/organomegaly/ascites Ext: warm, 2+ pulses in UE/LE bilaterally, no clubbing/cyanosis or edema Neuro: nonfocal, patient AA&O x 4, speech intact, no facial droop, moving all extremities on command with equal strength 5/5 Results & Data Results & Data Vital Signs (Past 12 Hours) Vital Signs Temp Pulse Resp BP Pulse Ox O2 Del Method 04/24/24 20:53 93 H 04/24/24 20:51 96 Room Air 04/24/24 19:59 37.3 C 103 H 20 125/67 93 Room Air Laboratory Results Laboratory Results WBC 11.73 K/ul (4.8-10.8) H 04/24/24 20:45 RBC 3.36 M/uL (4.20-5.40) L 04/24/24 20:45 Hgb 10.5 g/dl (12.0-16.0) L 04/24/24 20:45 Hct 32.3 % (37.0-47.0) L 04/24/24 20:45 MCV 96.1 fL (80.0-100.0) 04/24/24 20:45 MCH 31.3 pg (25.0-34.0) 04/24/24 20:45 MCHC 32.5 g/dL (32.0-36.0) 04/24/24 20:45 RDW Std Deviation 51.2 fL (36.4-46.3) H 04/24/24 20:45 RDW Coeff of Lul 14.6 % (11.5-14.5) H 04/24/24 20:45 Plt Count 177 K/uL (130-400) 04/24/24 20:45 MPV 12.3 fL (9.4-12.4) 04/24/24 20:45 Immature Gran % (Auto) 0.4 % 04/24/24 20:45 Neut % (Auto) 71.0 % 04/24/24 20:45 Lymph % (Auto) 18.4 % 04/24/24 20:45 [place] % (Auto) 7.5 % 04/24/24 20:45 Eos % (Auto) 2.4 % 04/24/24 20:45 Baso % (Auto) 0.3 % 04/24/24 20:45 Neut # (Auto) 8.32 K/uL (1.40-6.50) H 04/24/24 20:45 Lymph # (Auto) 2.16 K/uL (1.20-3.40) 04/24/24 20:45 [place] # (Auto) 0.88 K/uL (0.11-0.59) H 04/24/24 20:45 Eos # (Auto) 0.28 K/uL (0.00-0.50) 04/24/24 20:45 Baso # (Auto) 0.04 K/uL (0.00-0.20) 04/24/24 20:45 Immature Gran # (Auto) 0.05 K/uL (0.01-0.20) 04/24/24 20:45 PT 11.4 Seconds (9.0-12.0) 04/24/24 20:45 INR 1.1 (0.9-1.1) 04/24/24 20:45 APTT 32 Seconds (21-31) H 04/24/24 20:45 PTT Ratio 1.2 04/24/24 20:45 Sodium 135 mmol/L (136-145) L 04/24/24 20:45 Potassium 4.0 mmol/L (3.5-5.1) 04/24/24 20:45 Chloride 100 mmol/L (98-107) 04/24/24 20:45 Carbon Dioxide 26 mmol/L (21-32) 04/24/24 20:45 Anion Gap 9 (3-11) 04/24/24 20:45 BUN 27 mg/dl (6-23) H 04/24/24 20:45 Creatinine 1.06 mg/dl (0.6-1.2) 04/24/24 20:45 Est Cr Clr Drug Dosing 27.3 ml/min 04/24/24 20:45 Est GFR ( Amer) 53.9 ml/min 04/24/24 20:45 Est GFR (Non-Af Amer) 46.5 ml/min 04/24/24 20:45 BUN/Creatinine Ratio 25.5 (10-20) H 04/24/24 20:45 Glucose 95 mg/dl (70-99(Fasting)) 04/24/24 20:45 Lactate 1.2 mmol/L (0.4-2.0) 04/24/24 20:45 Calcium 9.1 mg/dl (8.6-10.3) 04/24/24 20:45 Phosphorus 2.9 mg/dl (2.5-4.9) 04/24/24 22:50 Magnesium 1.9 mg/dl (1.7-2.4) 04/24/24 22:50 Total Bilirubin 0.6 mg/dl (0.2-1.0) 04/24/24 20:45 AST 16 U/L (13-39) 04/24/24 20:45 ALT 8 U/L (7-52) 04/24/24 20:45 Alkaline Phosphatase 84 U/L (34-104) 04/24/24 20:45 Troponin I High Sens 68.3 pg/ml (0-14) H* D 04/24/24 22:50 B-Natriuretic Peptide 641 pg/ml (0-100) H 04/24/24 20:45 Total Protein 7.3 gm/dl (6.0-8.3) 04/24/24 20:45 Albumin 3.9 gm/dl (3.4-5.0) 04/24/24 20:45 Globulin 3.4 gm/dl (2.5-4.0) 04/24/24 20:45 Albumin/Globulin Ratio 1.1 (0.9-2) 04/24/24 20:45 Adenovirus (PCR) Not Detected (NotDetected) 04/24/24 20:04 B. pertussis DNA (PCR) Not Detected (NotDetected) 04/24/24 20:04 B.parapertussis DNA PCR Not Detected (NotDetected) 04/24/24 20:04 C. pneumoniae DNA (PCR) Not Detected (NotDetected) 04/24/24 20:04 Coronavirus OC43 (PCR) Not Detected (NotDetected) 04/24/24 20:04 Coronavirus HKU1 (PCR) Not Detected (NotDetected) 04/24/24 20:04 Coronavirus 229E (PCR) Not Detected (NotDetected) 04/24/24 20:04 SARS-CoV-2 (PCR) Not Detected (NotDetected) 04/24/24 20:04 Coronavirus NL63 (PCR) Not Detected (NotDetected) 04/24/24 20:04 Human Metapneumovir PCR Not Detected (NotDetected) 04/24/24 20:04 Influenza Type A (PCR) Not Detected (NotDetected) 04/24/24 20:04 Influenza Type B (PCR) Not Detected (NotDetected) 04/24/24 20:04 M. pneumoniae (PCR) Not Detected (NotDetected) 04/24/24 20:04 Parainfluenza 1 (PCR) Not Detected (NotDetected) 04/24/24 20:04 Parainfluenza 2 (PCR) Not Detected (NotDetected) 04/24/24 20:04 Parainfluenza 3 (PCR) Not Detected (NotDetected) 04/24/24 20:04 Parainfluenza 4 (PCR) Not Detected (NotDetected) 04/24/24 20:04 RSV (PCR) Not Detected (NotDetected) 04/24/24 20:04 Entero/Rhino (PCR) DETECTED (NotDetected) A 04/24/24 20:04 Diagnostic Findings CXR - concerning for LLL PNA ECG Additional Comments: EKG with NSR. LV=113, QRS=86, IIr=113. Some ST changes concerning for ischemia. Improved on repeat EKG Code Status & VTE Plan VTE Prophylaxis Plan VTE Prophylaxis will be ordered: Yes PG Care Time/CCT Total # of Minutes Spent Total Time Spent with Patient: Total time spent is greater than 50% in coordination of care (as documented) at patient's floor/unit and/or counseling patient: Coding Level of Care Code 10788 INT INP/OBS CARE 2/55MIN Diagnoses Pneumonia J18.9 Laterality: left Lung location: lower lobe of lung Pneumonia type: due to unspecified organism Rhinovirus infection B34.8 Elevated troponin R79.89 (1) Pneumonia Laterality: left Lung location: lower lobe of lung Pneumonia type: due to unspecified organism Qualified Code(s): J18.9 - Pneumonia, unspecified organism
[2024-04-24 23:34] LABS: Troponin I High Sensitivity 68.3 pg/ml (0-14)
[2024-04-25] MEDS ORDERED: ONDANSETRON INJ 2 MG/ML 2 ML VIAL IV PRN (00:01)
[2024-04-25] MEDS ORDERED: ALBUTEROL 0.5% NEB SOLN 2.5 MG/0.5 ML VIAL NEB PRN (00:01)
[2024-04-25 00:30] LABS: Magnesium 1.9 mg/dl (1.7-2.4); Phosphorus 2.9 mg/dl (2.5-4.9)
[2024-04-25] MEDS: ENOXAPARIN INJ 30 MG/0.3 ML SYR SQ SCH (00:38)
[2024-04-25] MEDS: AZITHROMYCIN 500 MG in DEXTROSE 5% 250 ML IV STA (00:38)
--- NOTE | 2024-04-25 07:21 | Electrocardiogram Report ---
Test Reason : Blood Pressure : / mmHG Vent. Rate : 089 BPM Atrial Rate : 089 BPM P-R Int : 164 ms QRS Dur : 084 ms QT Int : 360 ms P-R-T Axes : 040 053 -03 degrees QTc Int : 438 ms Normal sinus rhythm Nonspecific ST abnormality When compared with ECG of 24-APR-2024 20:51, (unconfirmed) ST no longer depressed in Anterior leads Confirmed by Lenin Lauren ([id number]) on 04/25/2024 7:21:22 AM Referred By: REFERRED SELF Confirmed By:Adelso Lauren
--- NOTE | 2024-04-25 07:21 | Electrocardiogram Report ---
Test Reason : Blood Pressure : / mmHG Vent. Rate : 090 BPM Atrial Rate : 090 BPM P-R Int : 174 ms QRS Dur : 086 ms QT Int : 356 ms P-R-T Axes : 031 039 001 degrees QTc Int : 435 ms Normal sinus rhythm Nonspecific ST abnormality When compared with ECG of 14-MAR-2024 12:28, Vent. rate has increased BY 36 BPM Reconfirmed by Lenin Lauren ([id number]) on 04/25/2024 7:21:06 AM Referred By: REFERRED SELF Confirmed By:Adelso Lauren
--- NOTE | 2024-04-25 07:53 | XRay Report ---
SINGLE VIEW CHEST CLINICAL HISTORY: Cough FINDINGS: An AP, portable, upright chest radiograph is compared to study dated 03/16/2024 and correlat ed with chest CT dated 03/14/2024. the patient's head partially obscures the apices.. The heart is enl arged noting atherosclerotic calcification of the thoracic aorta. There is pulmonary vascular congest ion. There is bibasilar scarring/atelectasis. Airspace opacities are greatest in the retrocardiac reg ion. No large pleural effusion or pneumothorax is seen. The skeletal structures are osteopenic. The b michael thorax is grossly intact. IMPRESSION: 1. Cardiomegaly with pulmonary vascular congestion. 2. Airspace opacities in the retrocardiac region could represent scarring/atelectasis versus pneumoni a/aspiration pneumonitis. Clinical correlation will be required and radiographic follow-up to resolut ion is recommended. ACT 112: Negative or not required by law. Electronically signed by: Simone Rodriguez M.D. 04/25/2024 7:52 AM
[2024-04-25 09:20] LABS: Hematocrit (blood only) 29.9 % (37.0-47.0); Hemoglobin 9.6 g/dl (12.0-16.0); Mean Corpuscular Hemoglobin 30.8 pg (25.0-34.0); Mean Corpuscular Hgb Conc 32.1 g/dL (32.0-36.0); Mean Corpuscular Volume 95.8 fL (80.0-100.0); Mean Platelet Volume 11.7 fL (9.4-12.4); Platelet Count 202 K/uL (130-400); RDW Coefficient of Variation 14.6 % (11.5-14.5); Red Blood Count 3.12 M/uL (4.20-5.40); White Blood Count 8.66 K/ul (4.8-10.8)
[2024-04-25 09:27] LABS: BUN Creatinine Ratio 21.7 (10-20); Calcium 8.7 mg/dl (8.6-10.3); Creatinine Clr Calc Pharmacy 31.6 ml/min; Est GFR (Non-African American) 55.2 ml/min; Potassium 3.8 mmol/L (3.5-5.1)
[2024-04-25] MEDS: ASPIRIN 81 MG ECTAB PO SCH (09:39)
[2024-04-25] MEDS: cefTRIAXone SODIUM 1,000 MG/50 ML BAG IV SCH (09:39)
[2024-04-25] MEDS: DOCUSATE SODIUM 100 MG CAP PO SCH (09:39)
[2024-04-25] MEDS: buPROPion SR 150 MG TABCR PO SCH (09:39)
[2024-04-25] MEDS: AZITHROMYCIN 250 MG in DEXTROSE 5% 250 ML IV SCH (09:40)
[2024-04-25] MEDS: hydrALAZINE TAB 50 MG TAB PO SCH (09:42)
[2024-04-25] MEDS ORDERED: methylPREDNISolone 1000 MG/16 ML IV SCH (10:00)
[2024-04-25] MEDS ORDERED: levoFLOXacin/D5W 500 MG/100 ML BAG IV SCH (10:00)
--- NOTE | 2024-04-25 10:12 | Hospitalist Progress Note ---
Date of Service April 25, 2024 Assessment & Plan (1) Asthmatic bronchitis: Plan: Parenteral steroids and IV Levaquin ordered. Obtain sputum culture if sputum is produced. (2) Pneumonia: Plan: Ruled out (3) Rhinovirus infection: Plan: Enterovirus positive on respiratory biofire panel. Supportive care (4) Elevated troponin: Plan: No chest pain. No acute EKG changes. No evidence of acute coronary syndrome. Plan Hopeful discharge to home within the next day or 2 Admission and Anticipated Discharge Date Admission Date: April 24, 2024 Subjective Alert and oriented. No distress. Clinically, she appears to have an asthmatic bronchitis and will be treated accordingly. Chest x-ray is negative for any acute infiltrates resembling pneumonia. Troponin is elevated but no evidence of acute coronary syndrome. She will be placed on Levaquin and Solu-Medrol, DuoNebs are scheduled, sputum culture is ordered and pending. Review of Systems 2 Review of Systems: Constitutional-no fever or chills ENT-no blurred vision, no double vision, no epistaxis, no sore throat Respiratory-occasionally productive cough. No hemoptysis. Denies shortness of breath Cardiac-no palpitations, no chest pain, no syncope GI-no nausea, vomiting, diarrhea, melena, hematochezia -no urinary retention, no urinary incontinence, no dysuria, no hematuria Musculoskeletal-no joint pain, no muscle tenderness Skin-no bruising, no rashes, no pruritus Neuro-no isolated weakness, no paresthesia, no weakness Psych-no depression, no anxiety Physical Exam 2 Physical Exam: General-alert and oriented x3, no fever, no chills HEENT-head atraumatic and normocephalic, pupils equal and reactive to light, extraocular muscles intact Neck-no lymphadenopathy or thyromegaly, trachea midline Chest-midline rhonchi with forced coughing. End expiratory wheezes bilaterally. No dullness to percussion. No inspiratory rales. Cardiac-regular rate and rhythm, normal S1 and S2 Abdomen-normal bowel sounds, no hepatosplenomegaly Extremities-no cyanosis, clubbing, or edema Neuro-cranial nerves II through XII intact, motor and sensory function within normal limits, strength symmetrical, no focal deficits Psych-normal affect, normal mood Results & Data Results & Data Vital Signs (Past 12 Hours) Vital Signs Temp Pulse Pulse Resp BP Pulse Ox O2 Del Method 04/25/24 09:43 121/53 L 04/25/24 07:52 36.8 C 79 16 123/68 95 Room Air 04/25/24 07:15 Room Air 04/24/24 23:45 Room Air 04/24/24 23:45 Room Air 04/24/24 23:45 37.0 C 102 H 18 135/64 96 Room Air 04/24/24 23:00 98 H 18 161/77 H 96 Room Air Laboratory Results 04/25/24 08:32 04/25/24 08:32 PG Care Time/CCT Total # of Minutes Spent Total Time Spent with Patient: Total time spent is greater than 50% in coordination of care (as documented) at patient's floor/unit and/or counseling patient: Coding Level of Care Code 97842 SUB INP/OBS CARE 3/50MIN Diagnoses Asthmatic bronchitis J45.909 Pneumonia J18.9 Laterality: left Lung location: lower lobe of lung Pneumonia type: due to unspecified organism Rhinovirus infection B34.8 Elevated troponin R79.89 (2) Pneumonia Laterality: left Lung location: lower lobe of lung Pneumonia type: due to unspecified organism Qualified Code(s): J18.9 - Pneumonia, unspecified organism
[2024-04-25] MEDS: methylPREDNISolone 40 MG in SYRINGE 0 ML IV SCH (10:43)
[2024-04-25] MEDS: levoFLOXacin/D5W 750 MG/150 ML BAG IV SCH (10:50)
[2024-04-25] MEDS: ALBUT/IPRATROP 3MG/0.5MG NEB 3 ML VIAL NEB SCH (11:16)
[2024-04-25] MEDS: FUROSEMIDE 40 MG TAB PO SCH (14:46)
[2024-04-25] MEDS: guaiFENesin/DEXTROM SYRUP 100MG/10MG 5ML UDC PO PRN (14:49)
[2024-04-25] MEDS: ACETAMINOPHEN 500 MG TAB PO PRN (22:11)
[2024-04-25] MEDS: NITROGLYCERIN SL 0.4 MG/TAB TAB SL STA (22:36)
[2024-04-25] MEDS ORDERED: MoRPHine SULFATE 2 MG/ML CARP IV PRN (22:39)
[2024-04-25] MEDS: NITROGLYCERIN SL 0.4 MG/TAB TAB ONE (22:43)
[2024-04-25] MEDS ORDERED: NITROGLYCERIN 0.3 MG/1 TAB 100 TAB BTL SL PRN (22:49)
--- NOTE | 2024-04-25 22:52 | Communication Note ---
Date of Service: April 25, 2024 Alerted that patient having chest pain with radiation to the jaw. Arrived at bedside. Ordered EKG, trop, and nitro. EKG with signs of ischemic changes. Nitro x2 with improvement in symptoms, but she continues to have chest pain. Started on heparin gtt, no bolus. Patient was transferred to PCU/Tele for further monitoring. Nitro 0.3 mg SL Q5min as needed for chest pain. Heparin gtt. Morphine PRN for pain. LR @ 80 mL/hr started for gentle hydration. Cards consult. Patient made NPO for possible cath 04/26. Did discuss case with Dr. Salas. Does not appear to be a STEMI at this time. Will control HR, BP, and pain. Started on oxygen. ECHO ordered for the morning. Also ordered CXR, CBC, CMP, lactate, TSH, PT/PTT/INR, BNP, Mag. Lactate elevated at 3.0. Q6H trop ordered on admission - does appear to be cancelled in the system. Trop went from 68.3 to 769.9 --> 1089.2. Will trend trop Q6H. BNP 1838. Case discussed with Dr. Barker. See attending attestation for further documentation. Resident Activity Tracking Resident Involvement: Resident Care Provided Care Provided: Adult Hospital Medicine
[2024-04-25 23:02] LABS: Hematocrit (blood only) 33.9 % (37.0-47.0); Mean Corpuscular Hemoglobin 31.1 pg (25.0-34.0); Mean Corpuscular Hgb Conc 32.4 g/dL (32.0-36.0); Mean Corpuscular Volume 95.8 fL (80.0-100.0); Mean Platelet Volume 11.5 fL (9.4-12.4); Platelet Count 250 K/uL (130-400); RDW Coefficient of Variation 14.6 % (11.5-14.5); RDW Standard Deviation 51.4 fL (36.4-46.3); Red Blood Count 3.54 M/uL (4.20-5.40); White Blood Count 6.51 K/ul (4.8-10.8)
[2024-04-25 23:20] LABS: Albumin Level 3.8 gm/dl (3.4-5.0); BUN Creatinine Ratio 20.5 (10-20); Bilirubin,Total 0.4 mg/dl (0.2-1.0); Calcium 9.4 mg/dl (8.6-10.3); Creatinine Clr Calc Pharmacy 19.9 ml/min; Est GFR (African American) 36.6 ml/min; Est GFR (Non-African American) 31.6 ml/min; Globulin 3.7 gm/dl (2.5-4.0); Magnesium 1.9 mg/dl (1.7-2.4); Potassium 4.2 mmol/L (3.5-5.1); Total Protein 7.5 gm/dl (6.0-8.3)
[2024-04-25 23:28] LABS: Troponin I High Sensitivity 769.9 pg/ml (0-14)
[2024-04-25 23:39] LABS: Thyroid Stimulating Hormone 1.604 uIu/ml (0.300-4.500)
[2024-04-25] MEDS: HEPARIN SODIUM/DEXTROSE 25,000 UNITS/500 ML BAG IV SCH (23:39)
[2024-04-25] MEDS ORDERED: METOPROLOL TARTRATE 1 MG/ML VIAL IV PRN (23:44)
[2024-04-25 23:49] LABS: INR 1.1 (0.9-1.1); Partial Thromboplastin Ratio 1.3; Partial Thromboplastin Time 34 Seconds (21-31); Prothrombin Time 11.9 Seconds (9.0-12.0)
[2024-04-25] MEDS: LACTATED RINGER'S 1,000 ML IV SCH (23:52)
[2024-04-26] MEDS: METOPROLOL TARTRATE 1 MG/ML VIAL IV STA ×2 (00:04→05:52)
[2024-04-26] MEDS: NITROGLYCERIN 2% OINTMENT 30GM TUBE EXT SCH (00:04)
[2024-04-26] MEDS: Heparin IV Adult Wt-Based Standard *NO* INITIAL Bolus Protocol IV SCH (00:30)
[2024-04-26] MEDS: MoRPHine SULFATE 2 MG/ML CARP IV PRN (05:35)
[2024-04-26] MEDS: NITROGLYCERIN SL 0.4 MG/TAB TAB SL STA (05:48)
--- NOTE | 2024-04-26 05:48 | Communication Note ---
Date of Service: April 26, 2024 Alerted that patient having chest pain again 06/26 with SOB and radiation to the jaw. Resident reported to room 204. EKG ordered and reviewed. Continue to be signs of ischemia on EKG. Per my read there are questionable ST elevations in leads V1 and V2. Ordered a stat SL nitro, morphine 1 mg x1, and lopressor 5 mg x1. Repeating nitro 0.4 mg SL Q5min as needed. CP resolved after 3 doses of SL nitro. Patient would likely benefit from cardiac catheterization today. As long as CP controlled can wait for dayshift. If unable to control chest pain would reach out to Dr. Salas for urgent catheterization. Case discussed with Dr. Barker. Dr. Salas is aware of her case. [facility]. Resident Activity Tracking Resident Involvement: Resident Care Provided Care Provided: Adult Hospital Medicine
[2024-04-26] MEDS: NITROGLYCERIN SL 0.4 MG/TAB TAB ONE (05:59)
[2024-04-26] MEDS: NITROGLYCERIN SL 0.4 MG/TAB TAB SL PRN (06:05)
[2024-04-26] MEDS: MoRPHine SULFATE 2 MG/ML CARP IV STA (06:18)
[2024-04-26 07:20] LABS: Hematocrit (blood only) 30.2 % (37.0-47.0); Hemoglobin 9.8 g/dl (12.0-16.0); Mean Corpuscular Hemoglobin 30.8 pg (25.0-34.0); Mean Corpuscular Hgb Conc 32.5 g/dL (32.0-36.0); Platelet Count 287 K/uL (130-400); RDW Coefficient of Variation 14.3 % (11.5-14.5); RDW Standard Deviation 49.9 fL (36.4-46.3); Red Blood Count 3.18 M/uL (4.20-5.40); White Blood Count 12.55 K/ul (4.8-10.8)
[2024-04-26 07:34] LABS: Calcium 8.9 mg/dl (8.6-10.3); Creatinine Clr Calc Pharmacy 23.4 ml/min; Est GFR (African American) 44.6 ml/min; Est GFR (Non-African American) 38.5 ml/min; Potassium 4.5 mmol/L (3.5-5.1)
[2024-04-26 07:39] LABS: ANTI-Xa, UFH(UnfractionatedHep 0.47 IU/ml (0.3-0.7)
--- NOTE | 2024-04-26 07:45 | XRay Report ---
XR chest 1V portable CLINICAL HISTORY: CP TECHNIQUE: Single frontal radiograph of the chest was obtained. Comparison: Comparison is made to chest radiograph 04/24/2024 FINDINGS: No lines and tubes are seen. Calcified aortic knob is seen. Reticular interstitial opacities are seen . No evidence of pleural effusion or pneumothorax. IMPRESSION: No acute chest disease. ACT 112: Negative or not required by law. Electronically signed by: Christian Winter M.D. 04/26/2024 7:44 AM
[2024-04-26 07:48] LABS: Basophils # (auto) 0.01 K/uL (0.00-0.20); Basophils % (auto) 0.1 %; Immature Granulocytes # (auto) 0.09 K/uL (0.01-0.20); Immature Granulocytes % (auto) 0.7 %; Lymphocytes # (auto) 0.75 K/uL (1.20-3.40); Monocytes # (auto) 0.21 K/uL (0.11-0.59); Monocytes % (auto) 1.7 %; Neutrophils # (auto) 11.49 K/uL (1.40-6.50); Neutrophils % (auto) 91.5 %
--- NOTE | 2024-04-26 11:10 | XCELERA ---
[id number]
--- NOTE | 2024-04-26 11:27 | Electrocardiogram Report ---
Test Reason : Blood Pressure : / mmHG Vent. Rate : 095 BPM Atrial Rate : 095 BPM P-R Int : 178 ms QRS Dur : 082 ms QT Int : 354 ms P-R-T Axes : 038 019 082 degrees QTc Int : 444 ms Normal sinus rhythm Marked ST abnormality, possible lateral subendocardial injury Abnormal ECG When compared with ECG of 25-APR-2024 22:24, (unconfirmed) Premature atrial complexes are no longer Present Criteria for Anterior infarct are no longer Present T wave inversion now evident in Lateral leads Confirmed by Lenin Lauren ([id number]) on 04/26/2024 11:27:32 AM Referred By: REFERRED SELF Confirmed By:Adelso Lauren
--- NOTE | 2024-04-26 11:30 | Electrocardiogram Report ---
Test Reason : Blood Pressure : / mmHG Vent. Rate : 117 BPM Atrial Rate : 117 BPM P-R Int : 156 ms QRS Dur : 096 ms QT Int : 338 ms P-R-T Axes : 064 039 017 degrees QTc Int : 471 ms Sinus tachycardia with Premature atrial complexes Poor R wave progression, consider anterior HI vs. lead placement vs. LVH Marked ST abnormality, possible lateral subendocardial injury Abnormal ECG When compared with ECG of 24-APR-2024 22:30, Premature atrial complexes are now Present ST now depressed in Lateral leads T wave amplitude has increased in Anterior leads Confirmed by Lenin Lauren ([id number]) on 04/26/2024 11:29:53 AM Referred By: REFERRED SELF Confirmed By:Adelso Lauren
--- NOTE | 2024-04-26 13:16 | Hospitalist Progress Note ---
Date of Service April 26, 2024 Assessment & Plan (1) NSTEMI (non-ST elevated myocardial infarction): Plan: Alert and oriented. Chest pain-free. Unfortunately, she developed evidence of an NSTEMI last evening, April 25, and was started on a heparin drip. She subsequently developed hemoptysis and the heparin drip was discontinued. She has been seen by cardiology and will undergo left heart catheterization later today, April 26. (2) Hemoptysis: Plan: Due to underlying bronchitis and heparin infusion. Heparin drip has been discontinued. At the time of my examination she is stable (3) Asthmatic bronchitis: Plan: Improved with parenteral steroids and IV Levaquin, day 2. Sputum culture results are pending (4) Pneumonia: Plan: Ruled out (5) Rhinovirus infection: Plan: Enterovirus positive on respiratory biofire panel. Supportive care Plan Hopeful eventual discharge to home. Admission and Anticipated Discharge Date Admission Date: April 26, 2024 Review of Systems Review of Systems: Constitutional-no fever or chills ENT-no blurred vision, no double vision, no epistaxis, no sore throat Respiratory-occasionally productive cough. No hemoptysis. Denies shortness of breath Cardiac-no palpitations, no chest pain, no syncope GI-no nausea, vomiting, diarrhea, melena, hematochezia -no urinary retention, no urinary incontinence, no dysuria, no hematuria Musculoskeletal-no joint pain, no muscle tenderness Skin-no bruising, no rashes, no pruritus Neuro-no isolated weakness, no paresthesia, no weakness Psych-no depression, no anxiety Physical Exam Physical Exam: General-alert and oriented x3, no fever, no chills HEENT-head atraumatic and normocephalic, pupils equal and reactive to light, extraocular muscles intact Neck-no lymphadenopathy or thyromegaly, trachea midline Chest-midline rhonchi with forced coughing. End expiratory wheezes bilaterally. No dullness to percussion. No inspiratory rales. Cardiac-regular rate and rhythm, normal S1 and S2 Abdomen-normal bowel sounds, no hepatosplenomegaly Extremities-no cyanosis, clubbing, or edema Neuro-cranial nerves II through XII intact, motor and sensory function within normal limits, strength symmetrical, no focal deficits Psych-normal affect, normal mood Results & Data Results & Data Vital Signs (Past 12 Hours) Vital Signs Temp Pulse Pulse Resp BP BP Pulse Ox 04/26/24 11:30 89 16 94 04/26/24 11:09 36.4 C L 93 H 19 122/54 L 92 04/26/24 07:39 36.5 C 83 20 131/64 100 04/26/24 07:28 04/26/24 07:26 81 17 97 04/26/24 06:18 79 126/73 04/26/24 05:52 102 H 166/96 H 04/26/24 03:28 36.8 C 76 18 110/69 95 O2 Del Method O2 Flow Rate 04/26/24 11:30 Nasal Cannula 2 04/26/24 11:09 Nasal Cannula 04/26/24 07:39 Nasal Cannula 6 04/26/24 07:28 Nasal Cannula 6 04/26/24 07:26 Nasal Cannula 4 04/26/24 06:18 04/26/24 05:52 04/26/24 03:28 Nasal Cannula 3 PG Care Time/CCT Total # of Minutes Spent Total Time Spent with Patient: Total time spent is greater than 50% in coordination of care (as documented) at patient's floor/unit and/or counseling patient: Coding Level of Care Code 42276 SUB INP/OBS CARE 3/50MIN Diagnoses NSTEMI (non-ST elevated myocardial infarction) I21.4 Hemoptysis R04.2 Asthmatic bronchitis J45.909 Pneumonia J18.9 Laterality: left Lung location: lower lobe of lung Pneumonia type: due to unspecified organism Rhinovirus infection B34.8 (4) Pneumonia Laterality: left Lung location: lower lobe of lung Pneumonia type: due to unspecified organism Qualified Code(s): J18.9 - Pneumonia, unspecified organism
--- NOTE | 2024-04-26 14:26 | Pre Anesthesia Assessment ---
Date of Service April 26, 2024 Pre Sedation Assessment Vital Signs Temp Pulse Pulse Resp BP BP Pulse Ox 04/26/24 14:11 93 H 14 134/69 92 04/26/24 11:30 89 16 94 04/26/24 11:09 36.4 C L 93 H 19 122/54 L 92 04/26/24 07:39 36.5 C 83 20 131/64 100 04/26/24 07:28 04/26/24 07:26 81 17 97 04/26/24 06:18 79 126/73 04/26/24 05:52 102 H 166/96 H 04/26/24 03:28 36.8 C 76 18 110/69 95 04/26/24 00:25 79 118/72 04/26/24 00:04 96 H 118/59 L 04/25/24 23:55 95 H 18 116/59 L 96 04/25/24 23:45 89 04/25/24 23:40 04/25/24 22:50 109 H 18 115/49 L 95 04/25/24 22:15 115 H 175/80 H 95 04/25/24 21:55 36.7 C 109 H 171/82 H 96 04/25/24 20:36 04/25/24 20:28 36.7 C 87 16 117/55 L 94 04/25/24 19:46 66 16 94 04/25/24 15:19 85 18 96 04/25/24 14:44 36.7 C 81 18 132/61 95 O2 Del Method O2 Flow Rate 04/26/24 14:11 Nasal Cannula 2 04/26/24 11:30 Nasal Cannula 2 04/26/24 11:09 Nasal Cannula 04/26/24 07:39 Nasal Cannula 6 04/26/24 07:28 Nasal Cannula 6 04/26/24 07:26 Nasal Cannula 4 04/26/24 06:18 04/26/24 05:52 04/26/24 03:28 Nasal Cannula 3 04/26/24 00:25 04/26/24 00:04 04/25/24 23:55 Nasal Cannula 3 04/25/24 23:45 04/25/24 23:40 Nasal Cannula 3 04/25/24 22:50 Nasal Cannula 3 04/25/24 22:15 Room Air 04/25/24 21:55 Room Air 04/25/24 20:36 Room Air 04/25/24 20:28 Room Air 04/25/24 19:46 Room Air 04/25/24 15:19 Room Air 04/25/24 14:44 Room Air Cardiovascular Additional Comments: Grade 2-3/6 systolic murmur S4 gallop Respiratory normal respiratory effort, lungs clear to auscultation Pre-Sedation Airway Assessment Smoking Status: Never smoker Short, Thick Neck: No Thyromental Distance: > or= 3.5 Finger Breadths Oral Cavity: + Dentures Mallampati Class: II ASA: ASA3 NPO Status Date of Last Intake of Fluids: 04/25/24 Time of Last Intake of Fluids: 20:00 Date of Last Intake of Solid Food: 04/25/24 Time of Last Intake of Solid Foods: 20:00 Notes The planned sedation has been discussed with the patient. Informed Consent was obtained. I have identified the patient, determined the appropriateness of sedation and have assessed the patient immediately prior to the procedure. All medicine(s) and interventions are by my order.
[2024-04-26] MEDS: HEPARIN (PORCINE) 1000 UNIT/ML 10 ML (CATH LAB USE ONLY) ONE (15:14)
[2024-04-26] MEDS: fentaNYL citrate PF 100 MCG/2 ML VIAL ONE (15:14)
[2024-04-26] MEDS: niCARdipine HCL INJ 2.5 MG/ML 10 ML AMP ONE (15:15)
[2024-04-26] MEDS: MIDAZOLAM HCL 1 MG/ML 2ML VIAL ONE (15:15)
[2024-04-26] MEDS: OPTIRAY 350 ONE (15:15)
[2024-04-26] MEDS: NITROGLYCERIN/D5W 100MCG/ML 20ML SYR ONE (15:17)
[2024-04-26] MEDS: diphenhydrAMINE 50 MG/ML VIAL ONE (15:17)
[2024-04-26] MEDS ORDERED: ONDANSETRON INJ 2 MG/ML 2 ML VIAL IV PRN (15:20)
--- NOTE | 2024-04-26 15:20 | Post Anesthesia Assessment ---
Date of Service April 26, 2024 Post Sedation Assessment Vital Signs Temp Pulse Pulse Resp BP BP Pulse Ox 04/26/24 14:11 93 H 14 134/69 92 04/26/24 11:30 89 16 94 04/26/24 11:09 36.4 C L 93 H 19 122/54 L 92 04/26/24 07:39 36.5 C 83 20 131/64 100 04/26/24 07:28 04/26/24 07:26 81 17 97 04/26/24 06:18 79 126/73 04/26/24 05:52 102 H 166/96 H 04/26/24 03:28 36.8 C 76 18 110/69 95 04/26/24 00:25 79 118/72 04/26/24 00:04 96 H 118/59 L 04/25/24 23:55 95 H 18 116/59 L 96 04/25/24 23:45 89 04/25/24 23:40 04/25/24 22:50 109 H 18 115/49 L 95 04/25/24 22:15 115 H 175/80 H 95 04/25/24 21:55 36.7 C 109 H 171/82 H 96 04/25/24 20:36 04/25/24 20:28 36.7 C 87 16 117/55 L 94 04/25/24 19:46 66 16 94 04/25/24 15:19 85 18 96 O2 Del Method O2 Flow Rate 04/26/24 14:11 Nasal Cannula 2 04/26/24 11:30 Nasal Cannula 2 04/26/24 11:09 Nasal Cannula 04/26/24 07:39 Nasal Cannula 6 04/26/24 07:28 Nasal Cannula 6 04/26/24 07:26 Nasal Cannula 4 04/26/24 06:18 04/26/24 05:52 04/26/24 03:28 Nasal Cannula 3 04/26/24 00:25 04/26/24 00:04 04/25/24 23:55 Nasal Cannula 3 04/25/24 23:45 04/25/24 23:40 Nasal Cannula 3 04/25/24 22:50 Nasal Cannula 3 04/25/24 22:15 Room Air 04/25/24 21:55 Room Air 04/25/24 20:36 Room Air 04/25/24 20:28 Room Air 04/25/24 19:46 Room Air 04/25/24 15:19 Room Air Recovery Score Activity: Moves 4 extremities Respiration: Deep Breath/Cough Circulation: +/-20% PreAnes Value Consciousness: Arouseable (by name) Oxygen Saturation: O2 needed for >90% Discharge Sedation Level of Care: Phase I Post Sedation Plan On clinical assessment, the patient appears to have tolerated the sedation without complications. Patient is recovering as anticipated. Patient will continue to be monitored by nursing and may be discharged when sedation discharge criteria are met per below protocol. Upon Completions of procedure up to 15 minutes continue every 5 minute vital signs and the P.A.R. score; then discharge to a Phase I or Fast Track to Phase II per the following guidelines: * Discharge Patient to appropriate Phase II area if PAR is 8 or greater or return to pre- procedure baseline. The post - procedure orders will be as directed. * If PAR score is less than 8 or not return to pre-procedure baseline then patient will follow Phase I monitoring till PAR is reached for Phase II. The Phase I may be done in procedure room or may call to secure a Phase I area. * If naloxone or flumazenil are used for reversal, hold in Phase I for continued monitoring from when last reversal dose was given for a minimum of 60 minutes or longer pending the nurse and/or physician discretion of patient condition before discharge to Phase II. Please call the Sedation Physician to re-evaluate and complete post-note for discharge to Phase II area. Do NOT discharge from procedure sedation or Phase 1 until post- sedation evaluation note is complete by procedure /sedation MD Sedation Discharge Instructions to be given to the patient at discharge to home. [facility] [place] Procedure Codes (Charges) Indication for Procedure Indication for procedure: NSTEMI Sedation/Anesthesia Procedure 1: Sedation/Anesthesia: 66467 Mod Sedation by the same physician;Init15 Min Child Age 5 & Up (Initial 15 min, start 1445) Total Sedation Time (minutes): 21 Procedure 2: Sedation/Anesthesia: 82124 Mod Sedation by the same physician; Ea [id number] Minutes (Additional 6 min, End 1506) Total Sedation Time (minutes): 21
--- NOTE | 2024-04-26 15:43 | Cardiac Catheterization ---
[facility] Data: [employer] Cardiac Status Clinical evaluation leading to the procedure CAD Presenation: Non STEMI Anginal Classification: CCS IV Heart Failure: NYHA Class: CCS II Cardiogenic Shock within 24 Hours: No Cardiac Arrest within 24 Hours: No Imaging Studies Past 6 Months: Yes Stress Studies Past 6 Months: No Coronary Anatomy Dominant: Right Left Main (% Stenosis): Proximal (70 to 80%) LAD (% Stenosis): Proximal (50 to 70% calcified) and Mid (Diffuse moderate) D1 (% Stenosis): Normal Circumflex (% Stenosis): Proximal (Calcified 40 to 50%) and Mid (70%) OM1 (% Stenosis): Normal (Diffuse severe) OM2 (% Stenosis): Normal RCA (% Stenosis): Proximal (100% chronic) Diagnostic Physicians Name: Jaime Bosch MD, PhD Closure Device Percutaneous Entry Location: Radial Closure Device: Radial Band Recommendations: Medical Therapy and/or Counseling Cardiac Cath Procedure Full Procedure Date April 26, 2024 Pre-Procedure Diagnosis Pre-Procedure Diagnosis: Non STEMI AUC Score AUC Score: 07 Post-Procedure Diagnosis Post-Procedure Diagnosis: Severe CAD Procedure(s) Performed Procedure(s) Performed: Coronary Angiography Field Test Engineer Jaime Bosch MD, PhD Estimated Blood Loss Estimated Blood Loss: 5 cc Medication(s) Medication(s): Fentanyl, Heparin, Hydralazine, Lidocaine 1%, Nitroglycerin and Versed Summary of Findings Brief description: Patient was brought to the cardiac catheterization suite where she was shaved and prepped in a sterile fashion. Sedated using IV Versed, fentanyl, and Benadryl. Soft tissues of the right wrist were anesthetized using 2 amounts of 1% Xylocaine. The right radial artery was accessed with a modified Seldinger technique and a 6 [place] radial artery glide sheath was placed. Patient was provided anticoagulation with IV heparin and antispasmodics including nicardipine and nitroglycerin. Delivery of the catheter required the use of a Wholey wire. After that, long J-tip wire for exchange. Right coronary angiography in orthogonal views with a 5 [place] 3 DRC diagnostic catheter. Left coronary angiography performed with a 5 [place] JL 3.5 diagnostic catheter. Patient did not tolerate the sedation and was very agitated. We had significant difficulty moving the catheter. After initial left coronary injection decision was made to end the study as the important information had been obtained. Diagnostic catheters were removed. Radial artery sheath was removed. Hemostasis was obtained using a vascular band. Patient was hemodynamically stable and had no cardiac symptoms. However she remained agitated from the sedation and was therefore returned to the recovery area for further monitoring. This ended the case. Coronary angiography findings: RCA-medium to large caliber vessel. 100% occluded proximally. There is faint right to right collaterals and the vessel appears to be dominant. It is moderately calcified. LMT-heavily calcified. Bifurcates into LAD and circumflex. Ostial to proximal 70 to 80% stenosis. There is ventricularization and dampening of the pressure waveform on engagement. LAD-proximal diffuse up to 50 to 70% calcified stenosis. Gives a medium to large first diagonal which does not appear to have significant occlusive disease. Mid LAD has diffuse up to moderate disease. Apical vessel is not well-visualized but seems small in diameter and likely diffusely diseased. [id number] running in the AV groove. Proximally there is moderate calcification with 40 to 50% stenosis. Gives a small to medium OM1 which has severe diffuse disease. Mid segment has focal up to 70% stenosis. Second OM appears larger without significant disease. Summary: 1. Severe multivessel coronary artery disease not appropriate for PCI. 2. No acute thrombotic appearing lesions. 3. There is significant catheter with in the aortic root suggesting significant aortic stenosis. 4. Recommend optimize medical therapy for secondary prevention of coronary disease. 5. 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 Hemodynamics Rest Ao:: 177/71 mmHg Final Ao: 137/80 mmHg LV: Not performed Recommendations Recommendations: Medical Therapy and/or Counseling Radiation Exposure (mGy) 494 mGy, fluoroscopy time 6.2 minutes Contrast (mls) 20 Anesthesia 1 mg Versed, 50 mcg fentanyl, 25 mg Benadryl IV. Start 1445, End 1506 Procedural Complication(s) None Disposition [employer]ocker Holding/Recovery I attest to the content of the Intraoperative Record and any orders documented therein. Any exceptions are noted below. [facility] [place] Procedure Codes Cardiac Catheterization Procedure 1: Cardiovascular Cath Procedures: 07314 Coronaries Moderate Sedation Procedure 1: Sedation/Anesthesia: 47886 Mod Sedation by the same physician;Init15 Min Child Age 5 & Up (Initial 15-minute, start 1445) Procedure 2: Sedation/Anesthesia: 98669 Mod Sedation by the same physician; Ea [id number] Minutes (Additional 6 min, End 1506) PG Care Time/CCT Total # of Minutes Spent Total Time Spent with Patient: Total time spent is greater than 50% in coordination of care (as documented) at patient's floor/unit and/or counseling patient:
[2024-04-26] MEDS: METOPROLOL TARTRATE 25 MG TAB PO SCH (16:29)
--- NOTE | 2024-04-26 17:18 | Cardiology Consultation ---
Date of Consultation April 26, 2024 Assessment & Plan (1) NSTEMI (non-ST elevated myocardial infarction): This is a type II non-ST elevation [place] (demand ischemia from infection in the setting of underlying severe multivessel coronary artery disease). No acute thrombotic lesions. Unfortunately her disease is surgical and she is not a candidate for surgery. Therefore, medical management is recommended. Guideline directed medical therapy for secondary prevention of coronary disease to include low-dose aspirin, high intensity statin therapy, beta-yanira, plus or minus CONY inhibitor/ARB as tolerated. Long-acting nitrate for anginal relief. (2) History of CHF (congestive heart failure): Patient does not appear to have significant volume overload by physical exam today. Her BNP yesterday was elevated but may be near her baseline. She has reduced EF on the echo, moderate to severe mitral regurgitation, and I think we are underestimating the severity of her aortic stenosis which was suboptimally visualized and evaluated. 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 She is pretty near euvolemic at the moment. She should continue with her home Lasix dose of 40 mg p.o. daily. I agree also with the use of Jardiance 10 mg daily as tolerated by her renal function. She has mostly been hypertensive so I think she may benefit from the addition of at least low-dose metoprolol succinate ER. Entresto/CONY inhibitor/ARB could also be considered although she may not tolerate from a renal or blood pressure standpoint. If we need to make room with her blood pressure so that we can institute guideline directed therapy then I would hold the hydralazine in favor of one of the above medications. (3) Murmur: Mitral and aortic valve disease which is significant. She also has tricuspid regurgitation which may contribute to lower extremity edema at times. She is not a candidate for valve surgery. 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 High intensity statin therapy is recommended. Does not look like she has been on any statins and we should consider initiating at least a atorvastatin 20 mg daily for plaque stabilization. (5) Benign essential hypertension: Blood pressure has been labile. Mostly above target. Recommend metoprolol succinate ER 25 mg daily, isosorbide mononitrate 30 mg daily, and consider addition of Entresto/ARB/CONY inhibitor prior to discharge. Plan Note: I spent 75 minutes evaluating the patient, reviewing available inpatient and outpatient records, reviewing radiologic and cardiac imaging, discussion with the patient, nursing staff, and the patient's son, as well as formulating and implementing a plan of care. This time is exclusive of the time spent for the procedure. History of Present Illness Reason for Consultation: Chest pain, elevated troponin Attending Physician: Simone Castorena MD History of Present Illness Pleasant 88-year-old female who follows in the heart failure clinic. She was last seen on April 22 in the heart failure clinic at which time she was doing fairly well. On 24 April she came to the hospital for progressive dyspnea on exertion, a chronic cough for over 1 week in duration, and initial evaluation suggested a rhinovirus infection with chest x-ray evidence of both pulmonary vascular congestion and retrocardiac pneumonia. She admitted that she had a fever the preceding week but none this week. EKG was performed when she developed some chest discomfort and this demonstrated ST depressions of about 1 mm in the lateral leads. She had a second chest pain episode and her cardiac troponin was found to be elevated. She was started on nitroglycerin and heparin drip. Unfortunately she developed hemoptysis and the heparin needed to be stopped. When I went to see her this morning she was doing well without any chest pain. After her son arrived, we discussed her clinical picture and I had a chance to evaluate the echocardiogram that was done earlier today. With the findings on her echo which were new compared to prior echo, her elevated troponin, her EKG changes, and her recurrent chest discomfort the patient and her family wish to proceed with definitive evaluation of her coronaries by cardiac catheterization. Informed consent was obtained. Patient subsequently went to the cardiac catheterization suite where she was found to have severe multivessel coronary artery disease not amenable to PCI. She actually had no acute thrombotic lesions only chronic severe disease. She also was quite agitated with sedation and we therefore obtained the necessary information and discontinued the case. She is now returned to her room. Patient had no preceding syncope, near syncope, orthopnea, PND, racing heartbeat, palpitations, or edema. She had dyspnea on exertion, the chronic cough for over a week with early fever and only in the hospital that she complained of chest pain. She voices no other complaints or concerns. Echocardiogram 04/26/2024: Normal size LV. Mild LVH. EF 40 to 45% with RCA territory wall motion abnormalities Normal RV Normal right atrium Severe left atrial enlargement Calcified aortic valve with trace aortic insufficiency and at least mild aortic stenosis (suboptimally studied/visualized). Calcified mitral valve with moderate to severe mitral regurgitation. 2 eccentric MR jets. Mild to moderate tricuspid regurgitation Cardiac catheterization 04/26/2024: Summarized- Left main with proximal severe disease 70 to 80% stenosis, dampening and ventricularization of pressure waveform on catheter engagement. LAD proximal borderline severe disease (50 to 70%). Circumflex proximal 40 to 50%, mid severe disease (70%) RCA chronic total occlusion proximally. Allergies Allergy/AdvReac Type Severity Reaction Status Date / Time Penicillins Allergy Intermediate DIFFUSE Verified 04/24/24 21:30 RASH Home Medications Medication Instructions Recorded Confirmed Type Oxygen Home #1 ea 07/30/19 04/22/24 History acetaminophen 500 mg tablet 1,000 mg PO Q6 PRN Pain 06/20/20 04/24/24 History (Tylenol Extra Strength) docusate sodium 100 mg capsule 100 mg PO DAILY 08/07/22 04/24/24 History (Colace) nystatin-triamcinolone 100,000 1 applic topical BID PRN Rash 04/16/23 04/24/24 History unit/g-0.1 % topical cream estradiol 0.01% (0.1 mg/gram) 1 g vaginal 2XWK #42.5 grams 09/03/23 04/24/24 Rx vaginal cream aspirin 81 mg tablet,delayed 81 mg PO DAILY 01/27/24 04/24/24 History release (Adult Aspirin Regimen) triamcinolone acetonide 0.1 % 1 applic topical DAILY PRN 01/27/24 04/24/24 History lotion RASH/SKIN IRRITATION ammonium lactate 12 % lotion 1 applic topical DAILY 02/26/24 04/24/24 History hydralazine 50 mg tablet 50 mg PO TID #90 tabs 02/26/24 04/24/24 Rx bupropion HCl 150 mg tablet,12 hr 150 mg PO QAM #90 ea 03/11/24 04/24/24 Rx sustained-release ketoconazole 2 % topical cream 1 applic topical UD PRN Skin 03/14/24 04/24/24 History Irritation furosemide 40 mg tablet (Lasix) 40 mg PO .QAFTERNOON 04/05/24 04/24/24 History empagliflozin 10 mg tablet 10 mg PO DAILY #30 tabs 04/22/24 04/24/24 Rx (Jardiance) Patient History Medical History Elevated troponin Cellulitis of right toe Pulmonary congestion History of rib fracture (11/11/22) 11th rib fracture. Skin tear of right upper arm without complication Trapezius muscle spasm Impacted cerumen, left ear CKD (chronic kidney disease) Incontinence Finger numbness rt hand Rash Left carpal tunnel syndrome Recurrent cellulitis of lower extremity Hx of headache History of anemia Hx of actinic keratosis History of anxiety Urinary incontinence Cellulitis recurrent LLE, no current issues Obesity Nocturnal hypoxemia 2L O2 HS as needed Hypertension Surgical History History of colonoscopy History of cataract surgery History of oral surgery History of cystoscopy most recent 01/04/19 [place] Status post excision of lipoma Family History Brother Hearing loss Myocardial infarction Hypertension Mother Hearing loss Hypertension Father Hearing loss Hypertension Other Allergies Asthma Heart disease No family history of adverse response to anesthesia No family history of bleeding disorder Denies family history of Colon cancer Ovarian cancer Prostate cancer Breast cancer Colorectal cancer Social History Smoking Status: Never smoker Second Hand Exposure: No; Do You Dip or Chew Tobacco: No; Hx Alcohol Use: No Hx Substance Use: No Preferred Language: [place] Communication Ability: Effective Visual Impairment: No Limitations Hearing Ability: Normal [employer] Required: No Beliefs That Will Affect Care: None marital status: / Current Living Situation: Alone Current Living Situation Comment: Lives alone, son is able to help care for patient when needed. current occupational status: retired Other Information That Helps Us Care for You: No Feels Safe at Home: Yes Safety Concerns: Feels Safe At This Time Childhood Exposure to Second-Hand Smoke: No Diet: regular during the past year weight has: remained stable Dental Care, Regularly: Yes Physical Activity Frequency: Does not Exercise Seatbelt Use: always Sunscreen Use: Yes Assistive Devices: Cane and Walker Review of Systems Review of Systems: Negative except as per HPI Physical Exam Constitutional: WD/WN, vitals as above (Elderly, frail. No acute distress.) Eyes: Extraocular muscles intact. Sclera are anicteric. ENMT: Oral mucosa is pink and dry. Blood-tinged sputum. Neck: No JVD. Respiratory: Frequent coughing Fair air movement No wheezing, rales or rhonchi appreciated Cardiovascular: Regular rate and rhythm. Grade 2-3/6 harsh holosystolic murmur S4 gallop No edema Musculoskeletal: no cyanosis or clubbing, extremities motor strength 5/5 Neurologic: Cognition is intact. Hearing is diminished. No focal deficits. Psychiatric: A+Ox3, euthymic affect Results & Data Vital Signs (Past 12 Hours) Vital Signs Temp Pulse Pulse Resp BP BP BP 04/26/24 16:35 90 20 124/62 04/26/24 16:05 88 20 117/78 04/26/24 15:45 98 H 20 147/73 H 04/26/24 15:33 36.5 C 89 20 132/76 04/26/24 15:30 105 H 16 169/90 H 04/26/24 15:15 105 H 16 161/83 H 04/26/24 14:11 93 H 14 134/69 04/26/24 11:30 89 16 04/26/24 11:09 36.4 C L 93 H 19 122/54 L 04/26/24 07:39 36.5 C 83 20 131/64 04/26/24 07:28 04/26/24 07:26 81 17 04/26/24 06:18 79 126/73 04/26/24 05:52 102 H 166/96 H Pulse Ox O2 Del Method O2 Flow Rate 04/26/24 16:35 95 Room Air 3 04/26/24 16:05 97 Nasal Cannula 3 04/26/24 15:45 91 Nasal Cannula 2 04/26/24 15:33 97 Nasal Cannula 3 04/26/24 15:30 96 Oxymask 4 04/26/24 15:15 96 Oxymask 4 04/26/24 14:11 92 Nasal Cannula 2 04/26/24 11:30 94 Nasal Cannula 2 04/26/24 11:09 92 Nasal Cannula 04/26/24 07:39 100 Nasal Cannula 6 04/26/24 07:28 Nasal Cannula 6 04/26/24 07:26 97 Nasal Cannula 4 04/26/24 06:18 04/26/24 05:52 PG Care Time/CCT Total # of Minutes Spent Total Time Spent with Patient: Total time spent is greater than 50% in coordination of care (as documented) at patient's floor/unit and/or counseling patient: Coding Level of Care Code 85574 INT INP/OBS CARE 3/75MIN Diagnoses NSTEMI (non-ST elevated myocardial infarction) I21.4 History of CHF (congestive heart failure) Z86.79 Murmur R01.1 Atherogenic dyslipidemia E78.5 Benign essential hypertension I10
[2024-04-26] MEDS ORDERED: hydrALAZINE HCL 20 MG/ML VIAL IV PRN (17:38)
[2024-04-26] MEDS ORDERED: MELATONIN 3 MG TAB PO PRN (21:21)
[2024-04-26] MEDS: OLANZapine 10 MG/2.1 ML SDV IM STA (21:40)
[2024-04-27] MEDS: OLANZapine 10 MG/2.1 ML SDV IM ONE (03:13)
[2024-04-27 07:22] LABS: Hematocrit (blood only) 31.4 % (37.0-47.0); Hemoglobin 10.1 g/dl (12.0-16.0); Mean Corpuscular Hemoglobin 31.3 pg (25.0-34.0); Mean Corpuscular Hgb Conc 32.2 g/dL (32.0-36.0); Mean Corpuscular Volume 97.2 fL (80.0-100.0); Mean Platelet Volume 10.7 fL (9.4-12.4); Platelet Count 323 K/uL (130-400); RDW Coefficient of Variation 14.5 % (11.5-14.5); RDW Standard Deviation 51.7 fL (36.4-46.3); Red Blood Count 3.23 M/uL (4.20-5.40); White Blood Count 16.44 K/ul (4.8-10.8)
[2024-04-27 07:44] LABS: Basophils # (auto) 0.02 K/uL (0.00-0.20); Basophils % (auto) 0.1 %; Immature Granulocytes # (auto) 0.11 K/uL (0.01-0.20); Immature Granulocytes % (auto) 0.7 %; Lymphocytes # (auto) 0.95 K/uL (1.20-3.40); Lymphocytes % (auto) 5.8 %; Monocytes # (auto) 0.25 K/uL (0.11-0.59); Monocytes % (auto) 1.5 %; Neutrophils # (auto) 15.11 K/uL (1.40-6.50); Neutrophils % (auto) 91.9 %
[2024-04-27 07:47] LABS: Calcium 9.2 mg/dl (8.6-10.3); Creatinine Clr Calc Pharmacy 25.4 ml/min; Est GFR (African American) 49.4 ml/min; Est GFR (Non-African American) 42.6 ml/min; Potassium 4.5 mmol/L (3.5-5.1)
[2024-04-27 07:54] LABS: ANTI-Xa, UFH(UnfractionatedHep < 0.10 IU/ml (0.3-0.7)
[2024-04-27] MEDS: ISOSORBIDE MONO EXTENDED REL 30 MG TABCR PO SCH (09:21)
[2024-04-27] MEDS ORDERED: NITROGLYCERIN SL 0.4 MG/TAB TAB SL PRN (11:56)
--- NOTE | 2024-04-27 14:08 | Hospitalist Progress Note ---
Date of Service April 27, 2024 Assessment & Plan (1) NSTEMI (non-ST elevated myocardial infarction): Plan: This appears to have been an inferior wall event. Cardiac echo reveals mildly reduced ejection fraction of 40 to 45% with inferior wall hypokinesis. She also has moderately severe mitral regurgitation. No further hemoptysis after the heparin drip was discontinued. Heart catheterization completed yesterday, April 26, reveals chronic RCA occlusion with severe diffuse disease of the first obtuse marginal branch. There was no intervention performed and medical management has been recommended. Metoprolol is new. Heart rate and blood pressure are controlled. (2) Hemoptysis: Plan: Due to underlying bronchitis and heparin infusion. Heparin drip has been discontinued. Now resolved (3) Asthmatic bronchitis: Plan: Improved with parenteral steroids and IV Levaquin, day 3. Sputum culture is nondiagnostic (4) Pneumonia: Plan: Ruled out (5) Rhinovirus infection: Plan: Enterovirus positive on respiratory biofire panel. Supportive care Plan It appears she will need SNF or IPR placement at the time of discharge within the next day or 2. Case management has been notified Admission and Anticipated Discharge Date Admission Date: April 26, 2024 Subjective Alert and oriented. Her son is at the bedside. We discussed needing to go to SNF or IPR at the time of discharge later this week. She is agreeable. OT and PT have been requested daily. She remains on Levaquin and Solu-Medrol, day 3. Sputum culture is nondiagnostic. Lung sounds are improved. She remains on oxygen at 2 L/min. Cardiac echo reveals ejection fraction of 40 to 45% with inferior wall hypokinesis and moderately severe mitral regurgitation. Review of Systems 2 Review of Systems: Constitutional-no fever or chills ENT-no blurred vision, no double vision, no epistaxis, no sore throat Respiratory-occasionally productive cough. No hemoptysis. Denies shortness of breath Cardiac-no palpitations, no chest pain, no syncope GI-no nausea, vomiting, diarrhea, melena, hematochezia -no urinary retention, no urinary incontinence, no dysuria, no hematuria Musculoskeletal-no joint pain, no muscle tenderness Skin-no bruising, no rashes, no pruritus Neuro-no isolated weakness, no paresthesia, no weakness Psych-no depression, no anxiety Physical Exam 2 Physical Exam: General-alert and oriented x3, no fever, no chills HEENT-head atraumatic and normocephalic, pupils equal and reactive to light, extraocular muscles intact Neck-no lymphadenopathy or thyromegaly, trachea midline Chest-midline rhonchi with forced coughing. End expiratory wheezes bilaterally have nearly resolved. No dullness to percussion. No inspiratory rales. Cardiac-regular rate and rhythm, normal S1 and S2 Abdomen-normal bowel sounds, no hepatosplenomegaly Extremities-no cyanosis, clubbing, or edema Neuro-cranial nerves II through XII intact, motor and sensory function within normal limits, strength symmetrical, no focal deficits Psych-normal affect, normal mood Results & Data Results & Data Vital Signs (Past 12 Hours) Vital Signs Temp Pulse Resp BP BP Pulse Ox O2 Del Method 04/27/24 11:03 62 16 95 Nasal Cannula 04/27/24 10:48 36.4 C L 66 18 116/52 L 96 Nasal Cannula 04/27/24 07:40 36.7 C 83 20 139/88 98 Nasal Cannula 04/27/24 07:34 85 18 90 Oxymask 04/27/24 07:20 Nasal Cannula 04/27/24 03:08 36.5 C 76 18 133/59 L 97 Nasal Cannula O2 Flow Rate 04/27/24 11:03 4 04/27/24 10:48 04/27/24 07:40 2 04/27/24 07:34 4 04/27/24 07:20 3 04/27/24 03:08 6 Laboratory Results 04/27/24 06:58 04/27/24 06:58 PG Care Time/CCT Total # of Minutes Spent Total Time Spent with Patient: Total time spent is greater than 50% in coordination of care (as documented) at patient's floor/unit and/or counseling patient: Coding Level of Care Code 47253 SUB INP/OBS CARE 3/50MIN Diagnoses NSTEMI (non-ST elevated myocardial infarction) I21.4 Hemoptysis R04.2 Asthmatic bronchitis J45.909 Pneumonia J18.9 Laterality: left Lung location: lower lobe of lung Pneumonia type: due to unspecified organism Rhinovirus infection B34.8 (4) Pneumonia Laterality: left Lung location: lower lobe of lung Pneumonia type: due to unspecified organism Qualified Code(s): J18.9 - Pneumonia, unspecified organism
--- NOTE | 2024-04-27 16:47 | Cardiology Progress Note ---
Date of Service April 27, 2024 Assessment & Plan (1) NSTEMI (non-ST elevated myocardial infarction): Plan: CANCER SPEC of RCA, severe left main, LAD, and circumflex disease. No acute lesions. Mechanism of elevated troponin likely type II (non-ACS) non-ST elevation [place]. She is not a revascularization candidate at this time. Her heart rate and blood pressure are improved. Recommend that we continue guideline directed medical therapy for secondary prevention of coronary disease. This includes low-dose aspirin, high intensity statin therapy, beta-yanira, plus or minus CONY inhibitor/ARB as tolerated by her renal function and blood pressure. Currently tolerating aspirin, metoprolol, and we are utilizing isosorbide mononitrate for anginal relief. (2) Benign essential hypertension: Plan: Blood pressure is closer to target. Continue current metoprolol dosing and isosorbide mononitrate. We could also consider changing from metoprolol to tartrate to metoprolol succinate 25 mg daily and try to add low-dose ARB. Staying on the current regimen is also reasonable. (3) Atherogenic dyslipidemia: Plan: Patient is high risk. High intensity statin therapy is recommended per guidelines. I do not know what her current or recent lipid panel looks like. At the very least we should add atorvastatin 10 mg daily for plaque stab ilization. Particularly given her left main disease. (4) History of CHF (congestive heart failure): Plan: No fluid overload at this time. She should remain on her home Lasix dose of 40 mg daily. If Jardiance is restarted then we may need to back down on the Lasix maybe to 20 mg. She will be prone to volume overload because of her valvular heart disease and reduced EF. She needs a follow-up in the heart failure clinic after discharge within 1 to 2 weeks. Plan If patient remains stable without evidence of volume overload tomorrow then she would be appropriate for discharge at that time. Admission and Anticipated Discharge Date Admission Date: April 26, 2024 Subjective Patient was asleep and comfortable when I saw her in the room. I chose not to awaken her to allow her to rest. There were no events overnight. Patient appeared comfortable and was breathing without any difficulty. To summarize: Patient has severe two-vessel coronary disease including proximal chronic occlusion of the RCA as well as severe proximal left main disease. Both the circumflex and LAD also have severe lesions. She is a poor candidate for surgical or percutaneous revascularization. Medical management has been recommended. In addition to her coronary disease she also has significant mitral regurgitation as well as less severe aortic and tricuspid valve disease. Again, she is a poor candidate for valve surgery. Review of Systems Review of Systems: Negative except as per HPI Physical Exam Constitutional: WD/WN, vitals as above (Elderly, frail. No acute distress.) Eyes: Extraocular muscles intact. Sclera are anicteric. ENMT: Oral mucosa is pink and dry. Neck: No JVD. Respiratory: Fair air movement No wheezing, rales or rhonchi appreciated Cardiovascular: Regular rate and rhythm. Grade 2-3/6 harsh holosystolic murmur S4 gallop No edema Musculoskeletal: no cyanosis or clubbing, extremities motor strength 5/5 Neurologic: Cognition is intact. Hearing is diminished. No focal deficits. Psychiatric: A+Ox3, euthymic affect Results & Data Vital Signs (Past 12 Hours) Vital Signs Temp Pulse Pulse Resp BP BP Pulse Ox 04/27/24 15:40 36.8 C 70 18 139/59 L 95 04/27/24 14:33 69 18 96 04/27/24 14:00 71 04/27/24 11:03 62 16 95 04/27/24 10:48 36.4 C L 66 18 116/52 L 96 04/27/24 07:40 36.7 C 83 20 139/88 98 04/27/24 07:34 85 18 90 04/27/24 07:20 04/27/24 06:00 67 O2 Del Method O2 Flow Rate 04/27/24 15:40 Nasal Cannula 4 04/27/24 14:33 Nasal Cannula 4 04/27/24 14:00 04/27/24 11:03 Nasal Cannula 4 04/27/24 10:48 Nasal Cannula 04/27/24 07:40 Nasal Cannula 2 04/27/24 07:34 Oxymask 4 04/27/24 07:20 Nasal Cannula 3 04/27/24 06:00 PG Care Time/CCT Total # of Minutes Spent Total Time Spent with Patient: Total time spent is greater than 50% in coordination of care (as documented) at patient's floor/unit and/or counseling patient: Coding Level of Care Code 92882 SUB INP/OBS CARE 2/35MIN Diagnoses NSTEMI (non-ST elevated myocardial infarction) I21.4 Benign essential hypertension I10 Atherogenic dyslipidemia E78.5 History of CHF (congestive heart failure) Z86.79
[2024-04-27] MEDS: OLANZapine 10 MG/2.1 ML SDV IM STA (19:29)
[2024-04-28 05:41] LABS: Hematocrit (blood only) 26.9 % (37.0-47.0); Hemoglobin 8.8 g/dl (12.0-16.0); Mean Corpuscular Hemoglobin 31.1 pg (25.0-34.0); Mean Corpuscular Hgb Conc 32.7 g/dL (32.0-36.0); Mean Corpuscular Volume 95.1 fL (80.0-100.0); Mean Platelet Volume 10.8 fL (9.4-12.4); Platelet Count 286 K/uL (130-400); RDW Coefficient of Variation 14.5 % (11.5-14.5); RDW Standard Deviation 50.4 fL (36.4-46.3); Red Blood Count 2.83 M/uL (4.20-5.40); White Blood Count 9.66 K/ul (4.8-10.8)
[2024-04-28 05:57] LABS: BUN Creatinine Ratio 45.1 (10-20); Calcium 8.7 mg/dl (8.6-10.3); Creatinine Clr Calc Pharmacy 23.8 ml/min; Est GFR (African American) 45.5 ml/min; Est GFR (Non-African American) 39.2 ml/min; Potassium 4.2 mmol/L (3.5-5.1)
[2024-04-28 06:00] LABS: Immature Granulocytes # (auto) 0.04 K/uL (0.01-0.20); Immature Granulocytes % (auto) 0.4 %; Lymphocytes # (auto) 0.59 K/uL (1.20-3.40); Lymphocytes % (auto) 6.1 %; Monocytes % (auto) 2.1 %; Neutrophils # (auto) 8.83 K/uL (1.40-6.50); Neutrophils % (auto) 91.4 %
[2024-04-28 06:03] LABS: ANTI-Xa, UFH(UnfractionatedHep < 0.10 IU/ml (0.3-0.7)
[2024-04-28] MEDS: ATORVASTATIN 10 MG TAB PO SCH (09:16)
--- NOTE | 2024-04-28 13:11 | Hospitalist Progress Note ---
Date of Service April 28, 2024 Assessment & Plan (1) NSTEMI (non-ST elevated myocardial infarction): Plan: This appears to have been an inferior wall event. Cardiac echo reveals mildly reduced ejection fraction of 40 to 45% with inferior wall hypokinesis. She also has moderately severe mitral regurgitation. No further hemoptysis after the heparin drip was discontinued. 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 There was no intervention performed and medical management has been recommended. Metoprolol is new. Heart rate and blood pressure are controlled. She was switched to metoprolol succinate today, April 28 and low- dose lisinopril will be started tomorrow, April 29. She is now on statin therapy (2) Hemoptysis: Plan: Due to underlying bronchitis and heparin infusion. Heparin drip has been discontinued. Now resolved (3) Asthmatic bronchitis: Plan: Improved with parenteral steroids and IV Levaquin, day 4. Sputum culture is nondiagnostic. Solu-Medrol has been switched to oral prednisone and intravenous Levaquin switched to oral Levaquin. (4) Pneumonia: Plan: Ruled out (5) Rhinovirus infection: Plan: Enterovirus positive on respiratory biofire panel. Supportive care Plan SNF for IPR placement pending. She is medically stable for discharge. Admission and Anticipated Discharge Date Admission Date: April 26, 2024 Subjective Alert and oriented. No distress. Vital signs are stable. Intravenous Levaquin switched to oral dosing. Solu-Medrol switched to oral prednisone. Metoprolol tartrate switched to XL formulation. She is now on a statin therapy and lisinopril 5 mg daily will be started tomorrow. Awaiting discharge to [facility] or [place] [facility]. Continue OT and PT while hospitalized. Review of Systems Review of Systems: Constitutional-no fever or chills ENT-no blurred vision, no double vision, no epistaxis, no sore throat Respiratory-occasionally productive cough. No hemoptysis. Denies shortness of breath Cardiac-no palpitations, no chest pain, no syncope GI-no nausea, vomiting, diarrhea, melena, hematochezia -no urinary retention, no urinary incontinence, no dysuria, no hematuria Musculoskeletal-no joint pain, no muscle tenderness Skin-no bruising, no rashes, no pruritus Neuro-no isolated weakness, no paresthesia, no weakness Psych-no depression, no anxiety Physical Exam Physical Exam: General-alert and oriented x3, no fever, no chills HEENT-head atraumatic and normocephalic, pupils equal and reactive to light, extraocular muscles intact Neck-no lymphadenopathy or thyromegaly, trachea midline Chest-midline rhonchi with forced coughing. End expiratory wheezes bilaterally have nearly resolved. No dullness to percussion. No inspiratory rales. Cardiac-regular rate and rhythm, normal S1 and S2 Abdomen-normal bowel sounds, no hepatosplenomegaly Extremities-no cyanosis, clubbing, or edema Neuro-cranial nerves II through XII intact, motor and sensory function within normal limits, strength symmetrical, no focal deficits Psych-normal affect, normal mood Results & Data Results & Data Vital Signs (Past 12 Hours) Vital Signs Temp Pulse Pulse Resp BP Pulse Ox O2 Del Method 04/28/24 12:06 36.7 C 69 18 128/75 95 Room Air 04/28/24 10:37 75 16 95 Room Air 04/28/24 09:34 72 04/28/24 09:05 Room Air 04/28/24 07:57 36.7 C 80 19 136/56 L 97 Room Air 04/28/24 07:14 77 15 92 Room Air 04/28/24 03:03 36.6 C 67 18 139/65 90 Oxymask O2 Flow Rate 04/28/24 12:06 04/28/24 10:37 04/28/24 09:34 04/28/24 09:05 04/28/24 07:57 04/28/24 07:14 04/28/24 03:03 3 PG Care Time/CCT Total # of Minutes Spent Total Time Spent with Patient: Total time spent is greater than 50% in coordination of care (as documented) at patient's floor/unit and/or counseling patient: Coding Level of Care Code 38948 SUB INP/OBS CARE 3/50MIN Diagnoses NSTEMI (non-ST elevated myocardial infarction) I21.4 Hemoptysis R04.2 Asthmatic bronchitis J45.909 Pneumonia J18.9 Laterality: left Lung location: lower lobe of lung Pneumonia type: due to unspecified organism Rhinovirus infection B34.8 (4) Pneumonia Laterality: left Lung location: lower lobe of lung Pneumonia type: due to unspecified organism Qualified Code(s): J18.9 - Pneumonia, unspecified organism
[2024-04-28] MEDS: predniSONE 10 MG TABLET PO SCH (13:50)
[2024-04-28] MEDS: METOPROLOL SUCC 50MG EXT REL TAB PO SCH (13:50)
[2024-04-29 06:34] LABS: Basophils # (auto) 0.01 K/uL (0.00-0.20); Basophils % (auto) 0.1 %; Hematocrit (blood only) 30.1 % (37.0-47.0); Hemoglobin 9.8 g/dl (12.0-16.0); Immature Granulocytes # (auto) 0.04 K/uL (0.01-0.20); Immature Granulocytes % (auto) 0.5 %; Lymphocytes % (auto) 15.7 %; Mean Corpuscular Hemoglobin 30.8 pg (25.0-34.0); Mean Corpuscular Hgb Conc 32.6 g/dL (32.0-36.0); Mean Corpuscular Volume 94.7 fL (80.0-100.0); Mean Platelet Volume 10.3 fL (9.4-12.4); Monocytes # (auto) 0.61 K/uL (0.11-0.59); Monocytes % (auto) 7.4 %; Neutrophils # (auto) 6.32 K/uL (1.40-6.50); Neutrophils % (auto) 76.3 %; Platelet Count 342 K/uL (130-400); RDW Coefficient of Variation 14.2 % (11.5-14.5); RDW Standard Deviation 49.4 fL (36.4-46.3); Red Blood Count 3.18 M/uL (4.20-5.40); White Blood Count 8.28 K/ul (4.8-10.8)
[2024-04-29 06:52] LABS: Calcium 8.6 mg/dl (8.6-10.3); Est GFR (African American) 57.8 ml/min; Est GFR (Non-African American) 49.9 ml/min; Potassium 4.2 mmol/L (3.5-5.1)
[2024-04-29 06:56] LABS: ANTI-Xa, UFH(UnfractionatedHep < 0.10 IU/ml (0.3-0.7)
[2024-04-29] MEDS: lisinopril 5 MG TAB PO SCH (09:16)
--- NOTE | 2024-04-29 12:22 | Hospitalist Progress Note ---
Date of Service April 29, 2024 Assessment & Plan (1) NSTEMI (non-ST elevated myocardial infarction): Plan: This appears to have been an inferior wall event. Cardiac echo reveals mildly reduced ejection fraction of 40 to 45% with inferior wall hypokinesis. She also has moderately severe mitral regurgitation. No further hemoptysis after the heparin drip was discontinued. 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 There was no intervention performed and medical management has been recommended. Metoprolol is new. Heart rate and blood pressure are controlled. She was switched to metoprolol succinate today, April 28 and low- dose lisinopril will be started tomorrow, April 29. She is now on statin therapy, low-dose lisinopril, statin therapy and metoprolol succinate (2) Hemoptysis: Plan: Due to underlying bronchitis and heparin infusion. Heparin drip has been discontinued. Now resolved (3) Asthmatic bronchitis: Plan: Improved with steroid therapy and Levaquin which have been switched to oral dosing. Prednisone will be gradually tapered off. Sputum culture is nondiagnostic. (4) Pneumonia: Plan: Ruled out (5) Rhinovirus infection: Plan: Enterovirus positive on respiratory biofire panel. Supportive care Plan SNF for IPR placement pending. She is medically stable for discharge. Admission and Anticipated Discharge Date Admission Date: April 26, 2024 Subjective Alert and oriented. No complaints. No new problems. Awaiting IPR or SNF placement Review of Systems 2 Review of Systems: Constitutional-no fever or chills ENT-no blurred vision, no double vision, no epistaxis, no sore throat Respiratory-occasionally productive cough. No hemoptysis. Denies shortness of breath Cardiac-no palpitations, no chest pain, no syncope GI-no nausea, vomiting, diarrhea, melena, hematochezia -no urinary retention, no urinary incontinence, no dysuria, no hematuria Musculoskeletal-no joint pain, no muscle tenderness Skin-no bruising, no rashes, no pruritus Neuro-no isolated weakness, no paresthesia, no weakness Psych-no depression, no anxiety Physical Exam 2 Physical Exam: General-alert and oriented x3, no fever, no chills HEENT-head atraumatic and normocephalic, pupils equal and reactive to light, extraocular muscles intact Neck-no lymphadenopathy or thyromegaly, trachea midline Chest-midline rhonchi with forced coughing. End expiratory wheezes bilaterally have nearly resolved. No dullness to percussion. No inspiratory rales. Cardiac-regular rate and rhythm, normal S1 and S2 Abdomen-normal bowel sounds, no hepatosplenomegaly Extremities-no cyanosis, clubbing, or edema Neuro-cranial nerves II through XII intact, motor and sensory function within normal limits, strength symmetrical, no focal deficits Psych-normal affect, normal mood Results & Data Results & Data Vital Signs (Past 12 Hours) Vital Signs Temp Pulse Resp BP BP Pulse Ox O2 Del Method 04/29/24 11:36 36.7 C 62 19 137/55 L 98 Room Air 04/29/24 11:14 61 18 94 Room Air 04/29/24 09:21 Room Air 04/29/24 07:43 36.5 C 68 19 156/65 H 95 Room Air 04/29/24 07:24 71 18 91 Room Air 04/29/24 02:22 36.9 C 66 18 128/59 L 94 Room Air Laboratory Results 04/29/24 06:18 04/29/24 06:18 PG Care Time/CCT Total # of Minutes Spent Total Time Spent with Patient: Total time spent is greater than 50% in coordination of care (as documented) at patient's floor/unit and/or counseling patient: Coding Level of Care Code 88040 SUB INP/OBS CARE 2/35MIN Diagnoses NSTEMI (non-ST elevated myocardial infarction) I21.4 Hemoptysis R04.2 Asthmatic bronchitis J45.909 Pneumonia J18.9 Laterality: left Lung location: lower lobe of lung Pneumonia type: due to unspecified organism Rhinovirus infection B34.8 (4) Pneumonia Laterality: left Lung location: lower lobe of lung Pneumonia type: due to unspecified organism Qualified Code(s): J18.9 - Pneumonia, unspecified organism
[2024-04-29] MEDS: levoFLOXacin 500 MG TAB PO SCH (12:33)
[2024-04-30 06:19] LABS: Hematocrit (blood only) 30.3 % (37.0-47.0); Hemoglobin 9.9 g/dl (12.0-16.0); Immature Granulocytes # (auto) 0.03 K/uL (0.01-0.20); Immature Granulocytes % (auto) 0.4 %; Lymphocytes # (auto) 1.57 K/uL (1.20-3.40); Lymphocytes % (auto) 20.9 %; Mean Corpuscular Hemoglobin 30.6 pg (25.0-34.0); Mean Corpuscular Hgb Conc 32.7 g/dL (32.0-36.0); Mean Corpuscular Volume 93.5 fL (80.0-100.0); Mean Platelet Volume 11.3 fL (9.4-12.4); Monocytes # (auto) 0.49 K/uL (0.11-0.59); Monocytes % (auto) 6.5 %; Neutrophils # (auto) 5.42 K/uL (1.40-6.50); Neutrophils % (auto) 72.2 %; Platelet Count 310 K/uL (130-400); RDW Coefficient of Variation 14.2 % (11.5-14.5); RDW Standard Deviation 48.5 fL (36.4-46.3); Red Blood Count 3.24 M/uL (4.20-5.40); White Blood Count 7.51 K/ul (4.8-10.8)
[2024-04-30 06:33] LABS: BUN Creatinine Ratio 48.4 (10-20); Calcium 8.6 mg/dl (8.6-10.3); Creatinine Clr Calc Pharmacy 23.6 ml/min; Est GFR (African American) 44.6 ml/min; Est GFR (Non-African American) 38.5 ml/min; Potassium 4.4 mmol/L (3.5-5.1)
--- NOTE | 2024-04-30 17:09 | Hospitalist Progress Note ---
Date of Service April 30, 2024 Assessment & Plan (1) NSTEMI (non-ST elevated myocardial infarction): Plan: This appears to have been an inferior wall event. Cardiac echo reveals mildly reduced ejection fraction of 40 to 45% with inferior wall hypokinesis. She also has moderately severe mitral regurgitation. No further hemoptysis after the heparin drip was discontinued. 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 There was no intervention performed and medical management has been recommended. Heart rate and blood pressure are controlled. She is now on statin therapy, low-dose lisinopril, statin therapy and metoprolol succinate (2) Hemoptysis: Plan: Due to underlying bronchitis and heparin infusion. Heparin drip has been discontinued. Now resolved (3) Asthmatic bronchitis: Plan: Improved with steroid therapy and Levaquin which have been switched to oral dosing. Prednisone will be gradually tapered off. Sputum culture is nondiagnostic. (4) Pneumonia: Plan: Ruled out (5) Rhinovirus infection: Plan: Enterovirus positive on respiratory biofire panel. Supportive care Plan IPR placement has been denied by the insurance company. Case management is pursuing SNF placement. She is medically stable for discharge. Admission and Anticipated Discharge Date Admission Date: April 26, 2024 Subjective Alert and oriented. No distress. Insurance denied IPR placement. Case management is pursuing SNF placement. She is medically stable overall and tolerating all medications. Prednisone will eventually be weaned off. Review of Systems 2 Review of Systems: Constitutional-no fever or chills ENT-no blurred vision, no double vision, no epistaxis, no sore throat Respiratory-occasionally productive cough. No hemoptysis. Denies shortness of breath Cardiac-no palpitations, no chest pain, no syncope GI-no nausea, vomiting, diarrhea, melena, hematochezia -no urinary retention, no urinary incontinence, no dysuria, no hematuria Musculoskeletal-no joint pain, no muscle tenderness Skin-no bruising, no rashes, no pruritus Neuro-no isolated weakness, no paresthesia, no weakness Psych-no depression, no anxiety Physical Exam 2 Physical Exam: General-alert and oriented x3, no fever, no chills HEENT-head atraumatic and normocephalic, pupils equal and reactive to light, extraocular muscles intact Neck-no lymphadenopathy or thyromegaly, trachea midline Chest-midline rhonchi with forced coughing. End expiratory wheezes bilaterally have nearly resolved. No dullness to percussion. No inspiratory rales. Cardiac-regular rate and rhythm, normal S1 and S2 Abdomen-normal bowel sounds, no hepatosplenomegaly Extremities-no cyanosis, clubbing, or edema Neuro-cranial nerves II through XII intact, motor and sensory function within normal limits, strength symmetrical, no focal deficits Psych-normal affect, normal mood Results & Data Results & Data Vital Signs (Past 12 Hours) Vital Signs Temp Pulse Pulse Resp BP BP Pulse Ox 04/30/24 16:27 37.3 C 66 20 118/61 97 04/30/24 15:34 65 18 95 04/30/24 14:46 67 04/30/24 11:10 58 L 04/30/24 10:34 64 20 94 04/30/24 10:27 36.3 C L 60 19 105/55 L 94 04/30/24 08:04 36.3 C L 70 16 158/68 H 100 04/30/24 07:50 04/30/24 07:24 60 18 95 O2 Del Method 04/30/24 16:27 Room Air 04/30/24 15:34 Room Air 04/30/24 14:46 04/30/24 11:10 04/30/24 10:34 Room Air 04/30/24 10:27 Room Air 04/30/24 08:04 Room Air 04/30/24 07:50 Room Air 04/30/24 07:24 Room Air Laboratory Results 04/30/24 05:24 04/30/24 05:24 PG Care Time/CCT Total # of Minutes Spent Total Time Spent with Patient: Total time spent is greater than 50% in coordination of care (as documented) at patient's floor/unit and/or counseling patient: Coding Level of Care Code 12830 SUB INP/OBS CARE 235MIN Diagnoses NSTEMI (non-ST elevated myocardial infarction) I21.4 Hemoptysis R04.2 Asthmatic bronchitis J45.909 Pneumonia J18.9 Laterality: left Lung location: lower lobe of lung Pneumonia type: due to unspecified organism Rhinovirus infection B34.8 (4) Pneumonia Laterality: left Lung location: lower lobe of lung Pneumonia type: due to unspecified organism Qualified Code(s): J18.9 - Pneumonia, unspecified organism
[2024-05-01 06:39] LABS: Basophils # (auto) 0.01 K/uL (0.00-0.20); Basophils % (auto) 0.1 %; Eosinophils # (auto) 0.03 K/uL (0.00-0.50); Eosinophils % (auto) 0.3 %; Hematocrit (blood only) 29.8 % (37.0-47.0); Hemoglobin 9.7 g/dl (12.0-16.0); Immature Granulocytes # (auto) 0.05 K/uL (0.01-0.20); Immature Granulocytes % (auto) 0.6 %; Lymphocytes # (auto) 2.16 K/uL (1.20-3.40); Lymphocytes % (auto) 25.2 %; Mean Corpuscular Hemoglobin 30.2 pg (25.0-34.0); Mean Corpuscular Hgb Conc 32.6 g/dL (32.0-36.0); Mean Corpuscular Volume 92.8 fL (80.0-100.0); Mean Platelet Volume 10.7 fL (9.4-12.4); Monocytes # (auto) 0.64 K/uL (0.11-0.59); Monocytes % (auto) 7.5 %; Neutrophils # (auto) 5.69 K/uL (1.40-6.50); Neutrophils % (auto) 66.3 %; Platelet Count 367 K/uL (130-400); RDW Coefficient of Variation 14.4 % (11.5-14.5); RDW Standard Deviation 49.1 fL (36.4-46.3); Red Blood Count 3.21 M/uL (4.20-5.40); White Blood Count 8.58 K/ul (4.8-10.8)
[2024-05-01 06:57] LABS: BUN Creatinine Ratio 54.2 (10-20); Calcium 8.5 mg/dl (8.6-10.3); Creatinine Clr Calc Pharmacy 24.2 ml/min; Est GFR (African American) 46.4 ml/min; Potassium 4.1 mmol/L (3.5-5.1)
--- NOTE | 2024-05-01 10:48 | XRay Report ---
XR chest 1V portable HISTORY: 88 years-old Female hypoxia acute hypoxia COMPARISON: 04/25/2024 TECHNIQUE: AP view of the chest FINDINGS: Cardiac silhouette is enlarged. Mild right hemidiaphragmatic elevation. Healed chronic left-sided rib fractures. No pneumothorax or pleural effusion. Mild bibasilar atelectasis. Mild chronic interstitia l coarsening. Degenerative changes of the shoulders and spine. IMPRESSION: Chronic findings without acute process of the chest. ACT 112: Negative or not required by law. The above report was generated using voice recognition software. It may contain grammatical, syntax o r spelling errors. Electronically signed by: Brady Beauchamp M.D. 05/01/2024 10:47 AM
--- NOTE | 2024-05-01 14:03 | Hospitalist Progress Note ---
Date of Service May 01, 2024 Assessment & Plan (1) NSTEMI (non-ST elevated myocardial infarction): Plan: inferior wall event. Cardiac echo reveals mildly reduced ejection fraction of 40 to 45% with inferior wall hypokinesis. She also has moderately severe mitral regurgitation. No further hemoptysis after the heparin drip was discontinued. 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 There was no intervention performed and medical management has been recommended. Heart rate and blood pressure are controlled. She is now on statin therapy, low-dose lisinopril and metoprolol succinate (2) Hemoptysis: Plan: Due to underlying bronchitis and heparin infusion. Heparin drip has been discontinued. Now resolved (3) Asthmatic bronchitis: Plan: Improved with steroid therapy and Levaquin which have been switched to oral dosing. Prednisone down titrated today, May 01, to twice daily dosing. It will be gradually tapered off. Sputum culture is nondiagnostic. (4) Pneumonia: Plan: Ruled out (5) Rhinovirus infection: Plan: Enterovirus positive on respiratory biofire panel. Supportive care Plan IPR placement has been denied by the insurance company. Case management is pursuing SNF placement. She is medically stable for discharge. Admission and Anticipated Discharge Date Admission Date: April 26, 2024 Subjective Alert and oriented. No new problems. Prednisone taper down to twice daily dosing. Repeat chest x-ray today, May 01, is negative. Insurance denied IPR placement. SNF placement is pending. Review of Systems 2 Review of Systems: Constitutional-no fever or chills ENT-no blurred vision, no double vision, no epistaxis, no sore throat Respiratory-occasionally productive cough. No hemoptysis. Denies shortness of breath Cardiac-no palpitations, no chest pain, no syncope GI-no nausea, vomiting, diarrhea, melena, hematochezia -no urinary retention, no urinary incontinence, no dysuria, no hematuria Musculoskeletal-no joint pain, no muscle tenderness Skin-no bruising, no rashes, no pruritus Neuro-no isolated weakness, no paresthesia, no weakness Psych-no depression, no anxiety Physical Exam 2 Physical Exam: General-alert and oriented x3, no fever, no chills HEENT-head atraumatic and normocephalic, pupils equal and reactive to light, extraocular muscles intact Neck-no lymphadenopathy or thyromegaly, trachea midline Chest-midline rhonchi with forced coughing. End expiratory wheezes bilaterally have nearly resolved. No dullness to percussion. No inspiratory rales. Cardiac-regular rate and rhythm, normal S1 and S2 Abdomen-normal bowel sounds, no hepatosplenomegaly Extremities-no cyanosis, clubbing, or edema Neuro-cranial nerves II through XII intact, motor and sensory function within normal limits, strength symmetrical, no focal deficits Psych-normal affect, normal mood Results & Data Results & Data Vital Signs (Past 12 Hours) Vital Signs Temp Pulse Pulse Resp BP BP Pulse Ox 05/01/24 11:41 37.1 C 61 18 138/55 L 95 05/01/24 11:13 59 L 18 97 05/01/24 07:28 36.5 C 69 17 171/66 H 88 L 05/01/24 07:13 67 18 94 05/01/24 07:00 56 L 05/01/24 02:32 36.6 C 60 16 116/48 L 93 O2 Del Method 05/01/24 11:41 Room Air 05/01/24 11:13 Room Air 05/01/24 07:28 Room Air 05/01/24 07:13 Room Air 05/01/24 07:00 05/01/24 02:32 Room Air Laboratory Results 05/01/24 06:04 05/01/24 06:04 PG Care Time/CCT Total # of Minutes Spent Total Time Spent with Patient: Total time spent is greater than 50% in coordination of care (as documented) at patient's floor/unit and/or counseling patient: Coding Level of Care Code 70377 SUB INP/OBS CARE 3/50MIN Diagnoses NSTEMI (non-ST elevated myocardial infarction) I21.4 Hemoptysis R04.2 Asthmatic bronchitis J45.909 Pneumonia J18.9 Laterality: left Lung location: lower lobe of lung Pneumonia type: due to unspecified organism Rhinovirus infection B34.8 (4) Pneumonia Laterality: left Lung location: lower lobe of lung Pneumonia type: due to unspecified organism Qualified Code(s): J18.9 - Pneumonia, unspecified organism
[2024-05-01] MEDS: predniSONE 10 MG TABLET PO SCH (17:07)
[2024-05-02 06:30] LABS: Basophils # (auto) 0.01 K/uL (0.00-0.20); Basophils % (auto) 0.1 %; Eosinophils # (auto) 0.16 K/uL (0.00-0.50); Eosinophils % (auto) 1.7 %; Hemoglobin 10.4 g/dl (12.0-16.0); Immature Granulocytes # (auto) 0.08 K/uL (0.01-0.20); Immature Granulocytes % (auto) 0.8 %; Lymphocytes # (auto) 3.23 K/uL (1.20-3.40); Mean Corpuscular Hemoglobin 30.6 pg (25.0-34.0); Mean Corpuscular Hgb Conc 32.5 g/dL (32.0-36.0); Mean Corpuscular Volume 94.1 fL (80.0-100.0); Mean Platelet Volume 11.5 fL (9.4-12.4); Monocytes # (auto) 0.69 K/uL (0.11-0.59); Monocytes % (auto) 7.3 %; Neutrophils # (auto) 5.33 K/uL (1.40-6.50); Neutrophils % (auto) 56.1 %; Platelet Count 316 K/uL (130-400); RDW Coefficient of Variation 14.6 % (11.5-14.5); RDW Standard Deviation 49.7 fL (36.4-46.3)
[2024-05-02 07:28] LABS: Calcium 8.7 mg/dl (8.6-10.3); Potassium 4.5 mmol/L (3.5-5.1)
[2024-05-02 07:33] LABS: BUN Creatinine Ratio 56.7 (10-20); Creatinine Clr Calc Pharmacy 24.1 ml/min; Est GFR (African American) 46.4 ml/min
--- NOTE | 2024-05-02 14:49 | Hospitalist Progress Note ---
Date of Service May 02, 2024 Assessment & Plan (1) NSTEMI (non-ST elevated myocardial infarction): Plan: inferior wall event. Cardiac echo reveals mildly reduced ejection fraction of 40 to 45% with inferior wall hypokinesis. She also has moderately severe mitral regurgitation. No further hemoptysis after the heparin drip was discontinued. 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 There was no intervention performed and medical management has been recommended. Heart rate and blood pressure are controlled. She is now on statin therapy, low-dose lisinopril and metoprolol succinate (2) Hemoptysis: Plan: Due to underlying bronchitis and heparin infusion. Heparin drip has been discontinued. Now resolved (3) Asthmatic bronchitis: Plan: Now resolved with steroid therapy and Levaquin which have been switched to oral dosing. Prednisone down titrated on May 01 and probably can be down titrated further tomorrow, May 03. It will be gradually tapered off. Sputum culture is nondiagnostic. (4) Pneumonia: Plan: Ruled out (5) Rhinovirus infection: Plan: Enterovirus positive on respiratory biofire panel. Supportive care Plan IPR placement has been denied by the insurance company. Case management is pursuing SNF placement. Hopefully tomorrow, May 03 she is medically stable for discharge. Admission and Anticipated Discharge Date Admission Date: April 26, 2024 Subjective Alert and oriented. No distress. Respiratory and cardiac status are stable. Prednisone is in the process of being weaned off. Dosage was decreased May 01 and probably can be decreased again tomorrow, May 03. She remains on Levaquin p.o. Hopeful discharge to SNF tomorrowMay 03 Review of Systems 2 Review of Systems: Constitutional-no fever or chills ENT-no blurred vision, no double vision, no epistaxis, no sore throat Respiratory-cough has resolved. No hemoptysis. Denies shortness of breath Cardiac-no palpitations, no chest pain, no syncope GI-no nausea, vomiting, diarrhea, melena, hematochezia -no urinary retention, no urinary incontinence, no dysuria, no hematuria Musculoskeletal-no joint pain, no muscle tenderness Skin-no bruising, no rashes, no pruritus Neuro-no isolated weakness, no paresthesia, no weakness Psych-no depression, no anxiety Physical Exam 2 Physical Exam: General-alert and oriented x3, no fever, no chills HEENT-head atraumatic and normocephalic, pupils equal and reactive to light, extraocular muscles intact Neck-no lymphadenopathy or thyromegaly, trachea midline Chest- midline rhonchi resolved. End expiratory wheezes bilaterally now resolved. No dullness to percussion. No inspiratory rales. Cardiac-regular rate and rhythm, normal S1 and S2 Abdomen-normal bowel sounds, no hepatosplenomegaly Extremities-no cyanosis, clubbing, or edema Neuro-cranial nerves II through XII intact, motor and sensory function within normal limits, strength symmetrical, no focal deficits Psych-normal affect, normal mood Results & Data Results & Data Vital Signs (Past 12 Hours) Vital Signs Temp Pulse Resp BP Pulse Ox O2 Del Method 05/02/24 11:33 36.5 C 62 18 113/46 L 97 Room Air 05/02/24 10:39 58 L 16 97 Room Air 05/02/24 07:15 36.6 C 54 L 18 136/66 100 Room Air, Nebulizer 05/02/24 07:10 61 18 96 Room Air Laboratory Results 05/02/24 05:35 05/02/24 05:35 PG Care Time/CCT Total # of Minutes Spent Total Time Spent with Patient: Total time spent is greater than 50% in coordination of care (as documented) at patient's floor/unit and/or counseling patient: Coding Level of Care Code 64847 SUB INP/OBS CARE 2MIN Diagnoses NSTEMI (non-ST elevated myocardial infarction) I21.4 Hemoptysis R04.2 Asthmatic bronchitis J45.909 Pneumonia J18.9 Laterality: left Lung location: lower lobe of lung Pneumonia type: due to unspecified organism Rhinovirus infection B34.8 (4) Pneumonia Laterality: left Lung location: lower lobe of lung Pneumonia type: due to unspecified organism Qualified Code(s): J18.9 - Pneumonia, unspecified organism
[2024-05-03 08:00] LABS: Basophils # (auto) 0.01 K/uL (0.00-0.20); Basophils % (auto) 0.1 %; Eosinophils # (auto) 0.19 K/uL (0.00-0.50); Hematocrit (blood only) 30.1 % (37.0-47.0); Hemoglobin 9.7 g/dl (12.0-16.0); Immature Granulocytes # (auto) 0.05 K/uL (0.01-0.20); Immature Granulocytes % (auto) 0.5 %; Lymphocytes # (auto) 2.97 K/uL (1.20-3.40); Lymphocytes % (auto) 31.3 %; Mean Corpuscular Hemoglobin 30.8 pg (25.0-34.0); Mean Corpuscular Hgb Conc 32.2 g/dL (32.0-36.0); Mean Corpuscular Volume 95.6 fL (80.0-100.0); Mean Platelet Volume 10.8 fL (9.4-12.4); Monocytes # (auto) 0.58 K/uL (0.11-0.59); Monocytes % (auto) 6.1 %; Neutrophils # (auto) 5.69 K/uL (1.40-6.50); Platelet Count 370 K/uL (130-400); RDW Coefficient of Variation 14.9 % (11.5-14.5); RDW Standard Deviation 51.8 fL (36.4-46.3); Red Blood Count 3.15 M/uL (4.20-5.40); White Blood Count 9.49 K/ul (4.8-10.8)
[2024-05-03 08:05] LABS: BUN Creatinine Ratio 53.7 (10-20); Calcium 8.6 mg/dl (8.6-10.3); Creatinine Clr Calc Pharmacy 20.9 ml/min; Est GFR (African American) 39.9 ml/min; Est GFR (Non-African American) 34.4 ml/min; Potassium 4.3 mmol/L (3.5-5.1)
--- NOTE | 2024-05-03 16:50 | Hospitalist Progress Note ---
Date of Service May 03, 2024 Assessment & Plan (1) NSTEMI (non-ST elevated myocardial infarction): Plan: Had inferior wall event after admission with chest pain, abnormal ECG ischemic findings. Troponin peaked at 1400 ECHO w/ mildly reduced EF 40 to 45% with inferior wall hypokinesis, moderately severe mitral regurgitation, and mild . No further hemoptysis after the heparin drip was discontinued. 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 There was no intervention performed and medical management has been recommended. Heart rate and blood pressure are controlled. She is now on ASA, statin therapy, low-dose lisinopril and metoprolol succinate, and isosorbide Will increase statin to high intensity, check lipid panel in AM Changed metoprolol tartrate to succinate given ischemic CM No further chest pains (2) Pneumonia: Plan: Suspected retrocardiac opacities on CXR on admission, with RHino/Enterovirus on BioFire No fevers but with tachycardia, leukocytosis, with sepsis, POA Blood cxs NGTD,Sputum cx neg Repeat CXR improving, cough and sputum production improving has now had 9 days of Levaquin-can complete course (3) Rhinovirus infection: Plan: Enterovirus positive on respiratory biofire panel. Supportive care (4) Hemoptysis: Plan: Due to underlying bronchitis and heparin infusion. Heparin drip has been discontinued. Now resolved (5) Asthmatic bronchitis: Plan: Now resolved with steroid therapy and Levaquin which have been switched to oral dosing. Prednisone down titrated on May 01 and can now be stopped COntinue nebs prn Plan DVT proph-add Lovenox SQ Dispo-improved, peer to peer denied today by insurance for SNF. Family appeal pending Admission and Anticipated Discharge Date Admission Date: April 26, 2024 Subjective Pt feeling better today, cough much improved. Not SOB. No further chest pains. Is moving bowels, eating. Tele with SB, NSR, rates 50-60s Physical Exam Constitutional: WD/WN, vitals as above Respiratory: normal respiratory effort, lungs clear to auscultation Cardiovascular: RRR, no murmur, no edema Gastrointestinal (Abdomen): normal bowel sounds, soft, nontender, no hepatosplenomegaly Psychiatric: A+Ox3, euthymic affect Results & Data Results & Data Vital Signs (Past 12 Hours) Vital Signs Temp Pulse Pulse Resp BP Pulse Ox O2 Del Method 05/03/24 15:44 36.5 C 61 18 106/46 L 95 Room Air 05/03/24 15:16 61 18 97 Room Air 05/03/24 11:20 36.6 C 65 18 120/48 L 96 Room Air 05/03/24 10:12 62 17 96 Room Air 05/03/24 07:23 36.6 C 66 18 143/66 H 97 Room Air 05/03/24 07:10 69 12 96 Room Air 05/03/24 07:00 57 L FiO2 05/03/24 15:44 05/03/24 15:16 05/03/24 11:20 05/03/24 10:12 21 05/03/24 07:23 05/03/24 07:10 21 05/03/24 07:00 Laboratory Results CBC, BMP, blood cxs reviewed PG Care Time/CCT Total # of Minutes Spent Total Time Spent with Patient: Total time spent is greater than 50% in coordination of care (as documented) at patient's floor/unit and/or counseling patient: Coding Level of Care Code 66577 SUB INP/OBS CARE 3/50MIN Diagnoses NSTEMI (non-ST elevated myocardial infarction) I21.4 Pneumonia J18.9 Laterality: left Lung location: lower lobe of lung Pneumonia type: due to unspecified organism Rhinovirus infection B34.8 Hemoptysis R04.2 Asthmatic bronchitis J45.909 (2) Pneumonia Laterality: left Lung location: lower lobe of lung Pneumonia type: due to unspecified organism Qualified Code(s): J18.9 - Pneumonia, unspecified organism
[2024-05-03] MEDS: ACETAMINOPHEN 325 MG TAB PO PRN (19:11)
[2024-05-03] MEDS: diphenhydrAMINE 50 MG/ML VIAL IV STA (22:52)
[2024-05-04 05:58] LABS: Basophils # (auto) 0.02 K/uL (0.00-0.20); Basophils % (auto) 0.2 %; Eosinophils # (auto) 0.19 K/uL (0.00-0.50); Eosinophils % (auto) 2.2 %; Hematocrit (blood only) 30.8 % (37.0-47.0); Hemoglobin 9.7 g/dl (12.0-16.0); Immature Granulocytes # (auto) 0.07 K/uL (0.01-0.20); Immature Granulocytes % (auto) 0.8 %; Lymphocytes # (auto) 2.63 K/uL (1.20-3.40); Lymphocytes % (auto) 29.9 %; Mean Corpuscular Hemoglobin 30.9 pg (25.0-34.0); Mean Corpuscular Hgb Conc 31.5 g/dL (32.0-36.0); Mean Corpuscular Volume 98.1 fL (80.0-100.0); Mean Platelet Volume 10.9 fL (9.4-12.4); Monocytes # (auto) 0.58 K/uL (0.11-0.59); Monocytes % (auto) 6.6 %; Neutrophils % (auto) 60.3 %; Platelet Count 359 K/uL (130-400); RDW Coefficient of Variation 14.9 % (11.5-14.5); RDW Standard Deviation 52.9 fL (36.4-46.3); Red Blood Count 3.14 M/uL (4.20-5.40); White Blood Count 8.79 K/ul (4.8-10.8)
[2024-05-04 06:17] LABS: Calcium 8.3 mg/dl (8.6-10.3); Potassium 4.5 mmol/L (3.5-5.1)
[2024-05-04 06:23] LABS: BUN Creatinine Ratio 56.4 (10-20); Chol HDL Ratio 3.5 (0-5); Creatinine Clr Calc Pharmacy 25.7 ml/min; Est GFR (African American) 51.5 ml/min; Est GFR (Non-African American) 44.5 ml/min
[2024-05-04] MEDS ORDERED: ENOXAPARIN INJ 40 MG/0.4 ML SYR SQ SCH (09:00)
[2024-05-04] MEDS: ENOXAPARIN INJ 30 MG/0.3 ML SYR SQ SCH (09:26)
[2024-05-04] MEDS: ATORVASTATIN 40 MG TAB PO SCH (09:28)
--- NOTE | 2024-05-04 14:34 | Hospitalist Progress Note ---
Date of Service May 04, 2024 Assessment & Plan (1) NSTEMI (non-ST elevated myocardial infarction): Plan: Had inferior wall event after admission with chest pain, abnormal ECG ischemic findings. Troponin peaked at 1400 ECHO w/ mildly reduced EF 40 to 45% with inferior wall hypokinesis, moderately severe mitral regurgitation, and mild . No further hemoptysis after the heparin drip was discontinued. 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 There was no intervention performed and medical management has been recommended. Heart rate and blood pressure are controlled. She is now on ASA, statin therapy, low-dose lisinopril and metoprolol succinate, and isosorbide Increased statin to high intensity, lipid panel with TChol 156, LDL 97, HDL 44 Changed metoprolol tartrate to succinate given ischemic CM No further chest pains (2) Pneumonia: Plan: Suspected retrocardiac opacities on CXR on admission, with RHino/Enterovirus on BioFire No fevers but with tachycardia, leukocytosis, with sepsis, POA Blood cxs NGTD,Sputum cx neg Repeat CXR improving, cough and sputum production improving Completed 9 days of Levaquin (3) Rhinovirus infection: Plan: Enterovirus positive on respiratory biofire panel. Supportive care (4) Hemoptysis: Plan: Due to underlying bronchitis and heparin infusion. Heparin drip has been discontinued. Now resolved (5) Asthmatic bronchitis: Plan: Now resolved with steroid therapy and Levaquin COntinue nebs prn Anemia-hgb 9.7 and stable from previous, Normocytic-B12, folate, Fe studies, and TSH all checked in last 3 months and normal. Likely anemia of chronic disease Plan DVT proph- Lovenox SQ Dispo-improved, peer to peer denied by insurance for SNF. Family appeal pending Admission and Anticipated Discharge Date Admission Date: April 26, 2024 Subjective Pt has no complaints except some mild indigestion earlier. No chest pain, no SOB Moving bowels Tele with SB and NSR rates 50-60s Physical Exam Constitutional: WD/WN, vitals as above Respiratory: normal respiratory effort Auscultation: + crackles (left base); no rhonchi and no wheezes Cardiovascular: RRR, no murmur, no edema Gastrointestinal (Abdomen): normal bowel sounds, soft, nontender, no hepatosplenomegaly Psychiatric: A+Ox3, euthymic affect Results & Data Results & Data Vital Signs (Past 12 Hours) Vital Signs Temp Pulse Resp BP Pulse Ox O2 Del Method 05/04/24 11:49 36.6 C 65 18 102/56 L 965 H Room Air 05/04/24 10:41 59 L 16 96 Room Air 05/04/24 07:20 36.5 C 57 L 18 138/56 L 97 Room Air 05/04/24 07:11 58 L 16 97 Room Air 05/04/24 02:32 36.6 C 54 L 18 141/65 H 96 Room Air Laboratory Results CBC, BMP, cholesterol panel reviewed PG Care Time/CCT Total # of Minutes Spent Total Time Spent with Patient: Total time spent is greater than 50% in coordination of care (as documented) at patient's floor/unit and/or counseling patient: Coding Level of Care Code 99716 SUB INP/OBS CARE 2/35MIN Diagnoses NSTEMI (non-ST elevated myocardial infarction) I21.4 Pneumonia J18.9 Laterality: left Lung location: lower lobe of lung Pneumonia type: due to unspecified organism Rhinovirus infection B34.8 Hemoptysis R04.2 Asthmatic bronchitis J45.909 (2) Pneumonia Laterality: left Lung location: lower lobe of lung Pneumonia type: due to unspecified organism Qualified Code(s): J18.9 - Pneumonia, unspecified organism
[2024-05-05 06:16] LABS: Basophils # (auto) 0.01 K/uL (0.00-0.20); Basophils % (auto) 0.1 %; Eosinophils # (auto) 0.27 K/uL (0.00-0.50); Eosinophils % (auto) 3.6 %; Hematocrit (blood only) 29.4 % (37.0-47.0); Hemoglobin 9.6 g/dl (12.0-16.0); Immature Granulocytes # (auto) 0.03 K/uL (0.01-0.20); Immature Granulocytes % (auto) 0.4 %; Lymphocytes # (auto) 2.01 K/uL (1.20-3.40); Lymphocytes % (auto) 26.9 %; Mean Corpuscular Hemoglobin 30.9 pg (25.0-34.0); Mean Corpuscular Hgb Conc 32.7 g/dL (32.0-36.0); Mean Corpuscular Volume 94.5 fL (80.0-100.0); Mean Platelet Volume 10.8 fL (9.4-12.4); Monocytes # (auto) 0.49 K/uL (0.11-0.59); Monocytes % (auto) 6.6 %; Neutrophils # (auto) 4.67 K/uL (1.40-6.50); Neutrophils % (auto) 62.4 %; Platelet Count 373 K/uL (130-400); RDW Coefficient of Variation 15.1 % (11.5-14.5); Red Blood Count 3.11 M/uL (4.20-5.40); White Blood Count 7.48 K/ul (4.8-10.8)
[2024-05-05 06:37] LABS: BUN Creatinine Ratio 49.6 (10-20); Calcium 8.4 mg/dl (8.6-10.3); Creatinine Clr Calc Pharmacy 23.2 ml/min; Est GFR (African American) 44.2 ml/min; Est GFR (Non-African American) 38.1 ml/min; Potassium 4.9 mmol/L (3.5-5.1)
[2024-05-05] MEDS ORDERED: ALBUT/IPRATROP 3MG/0.5MG NEB 3 ML VIAL NEB PRN (07:39)
--- NOTE | 2024-05-05 15:19 | Hospitalist Progress Note ---
Date of Service May 05, 2024 Assessment & Plan (1) NSTEMI (non-ST elevated myocardial infarction): Plan: Had inferior wall event after admission with chest pain, abnormal ECG ischemic findings. Troponin peaked at 1400 ECHO w/ mildly reduced EF 40 to 45% with inferior wall hypokinesis, moderately severe mitral regurgitation, and mild . No further hemoptysis after the heparin drip was discontinued. 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 There was no intervention performed and medical management has been recommended. Heart rate and blood pressure are controlled. She is now on ASA, statin therapy, low-dose lisinopril and metoprolol succinate, and isosorbide Increased statin to high intensity, lipid panel with TChol 156, LDL 97, HDL 44 Changed metoprolol tartrate to succinate given ischemic CM No further chest pains-having some upper abd indigestion type pain-trial of Pepcid will be given (2) Pneumonia: Plan: Suspected retrocardiac opacities on CXR on admission, with RHino/Enterovirus on BioFire No fevers but with tachycardia, leukocytosis, with sepsis, POA Blood cxs NGTD,Sputum cx neg Repeat CXR improving, cough and sputum production improving Completed 9 days of Levaquin (3) Rhinovirus infection: Plan: Enterovirus positive on respiratory biofire panel. Supportive care (4) Hemoptysis: Plan: Due to underlying bronchitis and heparin infusion. Heparin drip has been discontinued. Now resolved (5) Asthmatic bronchitis: Plan: Now resolved with steroid therapy and Levaquin COntinue nebs prn Anemia-hgb 9.7 and stable from previous, Normocytic-B12, folate, Fe studies, and TSH all checked in last 3 months and normal. Likely anemia of chronic disease Plan DVT proph- Lovenox SQ Dispo-improved, peer to peer denied by insurance for SNF. Family appeal pending. Downgrade to medical Admission and Anticipated Discharge Date Admission Date: April 26, 2024 Subjective Had about an hour of epigastric indigestion type pain this AM after breakfast that went away on its own. Otherwise feels well, no concerns. Tele with SB, NSR rates 50-60s Physical Exam Constitutional: WD/WN, vitals as above Respiratory: normal respiratory effort, lungs clear to auscultation Cardiovascular: RRR, no murmur, no edema Gastrointestinal (Abdomen): normal bowel sounds, soft, nontender, no hepatosplenomegaly Psychiatric: A+Ox3, euthymic affect Results & Data Results & Data Vital Signs (Past 12 Hours) Vital Signs Temp Pulse Pulse Resp BP Pulse Ox O2 Del Method 05/05/24 10:57 36.7 C 52 L 19 126/51 L 98 Room Air 05/05/24 07:38 36.6 C 55 L 20 139/69 98 Room Air 05/05/24 06:00 56 L Laboratory Results CBC, BMP reviewed PG Care Time/CCT Total # of Minutes Spent Total Time Spent with Patient: Total time spent is greater than 50% in coordination of care (as documented) at patient's floor/unit and/or counseling patient: Coding Level of Care Code 58099 SUB INP/OBS CARE 2/35MIN Diagnoses NSTEMI (non-ST elevated myocardial infarction) I21.4 Pneumonia J18.9 Laterality: left Lung location: lower lobe of lung Pneumonia type: due to unspecified organism Rhinovirus infection B34.8 Hemoptysis R04.2 Asthmatic bronchitis J45.909 (2) Pneumonia Laterality: left Lung location: lower lobe of lung Pneumonia type: due to unspecified organism Qualified Code(s): J18.9 - Pneumonia, unspecified organism
[2024-05-05] MEDS: FAMOTIDINE 20 MG TAB PO SCH (19:50)
[2024-05-06 07:51] LABS: Basophils # (auto) 0.01 K/uL (0.00-0.20); Basophils % (auto) 0.2 %; Eosinophils # (auto) 0.27 K/uL (0.00-0.50); Eosinophils % (auto) 4.7 %; Hematocrit (blood only) 31.2 % (37.0-47.0); Hemoglobin 10.1 g/dl (12.0-16.0); Immature Granulocytes # (auto) 0.03 K/uL (0.01-0.20); Immature Granulocytes % (auto) 0.5 %; Lymphocytes # (auto) 1.61 K/uL (1.20-3.40); Lymphocytes % (auto) 28.3 %; Mean Corpuscular Hemoglobin 30.8 pg (25.0-34.0); Mean Corpuscular Hgb Conc 32.4 g/dL (32.0-36.0); Mean Corpuscular Volume 95.1 fL (80.0-100.0); Mean Platelet Volume 10.7 fL (9.4-12.4); Monocytes # (auto) 0.45 K/uL (0.11-0.59); Monocytes % (auto) 7.9 %; Neutrophils # (auto) 3.32 K/uL (1.40-6.50); Neutrophils % (auto) 58.4 %; Platelet Count 353 K/uL (130-400); RDW Coefficient of Variation 14.8 % (11.5-14.5); RDW Standard Deviation 51.4 fL (36.4-46.3); Red Blood Count 3.28 M/uL (4.20-5.40); White Blood Count 5.69 K/ul (4.8-10.8)
[2024-05-06 08:08] LABS: BUN Creatinine Ratio 52.4 (10-20); Calcium 8.4 mg/dl (8.6-10.3); Creatinine Clr Calc Pharmacy 28.2 ml/min; Est GFR (African American) 55.8 ml/min; Est GFR (Non-African American) 48.2 ml/min; Potassium 4.4 mmol/L (3.5-5.1)
--- NOTE | 2024-05-06 19:51 | Hospitalist Progress Note ---
Date of Service May 06, 2024 Assessment & Plan (1) NSTEMI (non-ST elevated myocardial infarction): Plan: Had inferior wall event after admission with chest pain, abnormal ECG ischemic findings. Troponin peaked at 1400 ECHO w/ mildly reduced EF 40 to 45% with inferior wall hypokinesis, moderately severe mitral regurgitation, and mild . No further hemoptysis after the heparin drip was discontinued. 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 There was no intervention performed and medical management has been recommended. Heart rate and blood pressure are controlled. She is now on ASA, high intensity statin therapy, lisinopril, metoprolol succinate, and isosorbide. She has had no further angina Lipid panel with TChol 156, LDL 97, HDL 44 Changed metoprolol tartrate to succinate given ischemic CM No further chest pains-having some upper abd indigestion type pain-trial of Pepcid has proved successful at relieving this-remain on this for 2 weeks (2) Pneumonia: Plan: Suspected retrocardiac opacities on CXR on admission, with RHino/Enterovirus on BioFire No fevers but with tachycardia, leukocytosis, with sepsis, POA Blood cxs NGTD,Sputum cx neg Repeat CXR improving, cough and sputum production improving Completed 9 days of Levaquin Needs follow-up chest x-ray in 4 weeks to ensure resolution (3) Rhinovirus infection: Plan: Enterovirus positive on respiratory biofire panel. Supportive care (4) Hemoptysis: Plan: Due to underlying bronchitis and heparin infusion. Heparin drip has been discontinued. Now resolved (5) Asthmatic bronchitis: Plan: Now resolved with steroid therapy and Levaquin COntinue nebs prn Anemia-hgb 10.1 and stable from previous, Normocytic-B12, folate, Fe studies, and TSH all checked in last 3 months and normal. Likely anemia of chronic disease Plan DVT proph- Lovenox SQ Dispo-improved, peer to peer denied by insurance for SNF. Family appeal now also denied. Patient plans to now go home with home health on 05/07 Admission and Anticipated Discharge Date Admission Date: April 26, 2024 Anticipated date of discharge: 05/07/24 Subjective Patient feeling well today. No further indigestion. No chest pain or shortness of breath. Cough is much improved. She is eating and drinking, moving her bowels. Her family appeal for rehab was denied and she is now feeling much more confident about going home. Her son and grandson will help look after her and stay with her at the house. Physical Exam Constitutional: WD/WN, vitals as above Respiratory: normal respiratory effort, lungs clear to auscultation Cardiovascular: RRR, no murmur, no edema Gastrointestinal (Abdomen): normal bowel sounds, soft, nontender, no hepatosplenomegaly Psychiatric: A+Ox3, euthymic affect Results & Data Results & Data Vital Signs (Past 12 Hours) Vital Signs Temp Pulse Resp BP Pulse Ox O2 Del Method 05/06/24 15:38 Room Air 05/06/24 15:34 36.3 C L 52 L 16 103/58 L 96 Room Air 05/06/24 08:56 52 L 105/55 L Laboratory Results CBC, BMP reviewed PG Care Time/CCT Total # of Minutes Spent Total Time Spent with Patient: Total time spent is greater than 50% in coordination of care (as documented) at patient's floor/unit and/or counseling patient: Coding Level of Care Code 03488 SUB INP/OBS CARE 12/11MIN Diagnoses NSTEMI (non-ST elevated myocardial infarction) I21.4 Pneumonia J18.9 Laterality: left Lung location: lower lobe of lung Pneumonia type: due to unspecified organism Rhinovirus infection B34.8 Hemoptysis R04.2 Asthmatic bronchitis J45.909 (2) Pneumonia Laterality: left Lung location: lower lobe of lung Pneumonia type: due to unspecified organism Qualified Code(s): J18.9 - Pneumonia, unspecified organism
--- NOTE | 2024-05-07 11:03 | Discharge Summary ---
Discharge Summary Date of Service May 07, 2024 Principal Dx & Hospital Course #1 = Principal Diagnosis (1) NSTEMI (non-ST elevated myocardial infarction): Had inferior wall event after admission with chest pain, abnormal ECG ischemic findings. Troponin peaked at 1400 ECHO w/ mildly reduced EF 40 to 45% with inferior wall hypokinesis, moderately severe mitral regurgitation, and mild . No further hemoptysis after the heparin drip was discontinued. 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 There was no intervention performed and medical management has been recommended. Heart rate and blood pressure are controlled. She is now on ASA, high intensity statin therapy, lisinopril, metoprolol succinate, and isosorbide. She has had no further angina Lipid panel with TChol 156, LDL 97, HDL 44 Changed metoprolol tartrate to succinate given ischemic CM No further chest pains-having some upper abd indigestion type pain-trial of Pepcid has proved successful at relieving this-remain on this for 1 month (2) Pneumonia: Suspected retrocardiac opacities on CXR on admission, with RHino/Enterovirus on BioFire No fevers but with tachycardia, leukocytosis, with sepsis, POA Blood cxs NGTD,Sputum cx neg Repeat CXR improving, cough and sputum production improving Completed 9 days of Levaquin Needs follow-up chest x-ray in 4 weeks to ensure resolution (3) Rhinovirus infection: Enterovirus positive on respiratory biofire panel. Supportive care (4) Hemoptysis: Due to underlying bronchitis and heparin infusion. Heparin drip has been discontinued. Now resolved (5) Asthmatic bronchitis: Now resolved with steroid therapy and Levaquin COntinue nebs prn Anemia-hgb 10.1 and stable from previous, Normocytic-B12, folate, Fe studies, and TSH all checked in last 3 months and normal. Likely anemia of chronic disease (6) Mitral regurgitation: mod-severe, f/u with Cardiology (7) CAD (coronary artery disease), [facility] coronary artery: as above, medical management (8) Hypertension: BPs elevated but added on lisinopril, Toprol XL, isosorbide, and resume jardiance as outpt which has some antihypertensive effect (9) (HFpEF) heart failure with preserved ejection fraction: as above, mildly reduced EF/mid range EF f/u with Cardiology move lasix to AM dosing, continue Jardiance daily weights, low sodium diet, fluid restrict Plan DVT proph- Lovenox SQ Dispo-improved, peer to peer denied by insurance for SNF. Family appeal now also denied. Patient plans to now go home with home health on 05/07 Notes For Next Care Provider Check CXR in 4 weeks F/u with Cardiology and/or CHF clinic in 2 weeks Medication Changes From Visit Added Toprol XL 50mg daily Added lisinopril 5mg po daily Added isosorbide 30mg po daily Added atorvastatin 40mg po daily Changed timing of lasix to 40mg po qAM (from q afternoon) Added famotidine 20mg po bid Admission HPI Per Admitting Provider Bridget Styles is an 88yo female with history fo CKD, HTN and HFpEF presenting from home with 8-9 days of cough. She reports that the cough was initially productive for thick, purulent sputum but has most recently been light yellow in color. No hemoptysis. She has some chest tightness and wheezing as well as shortness of breath. She reports an elevated temperature last week but has not had a fever since. She denies orthopnea, edema or weight gain. Her last Echocardiogram from 01/07/24 with EF of 50-55% and pulmonary hypertension. Patient follows with Heart failure clinic. Most recently seen on 04/22/24. She has been stable - has occasional NAYAK and edema but neither currently. Her dry weight is 132#. Today she is 129.8#. She was prescribed Jardiance but has not yet started taking it. In the ER she is afebrile, tachycardic, adequate oxygenation on room air ER Course: ALbuterol 2 puffs Albuterol 3mL/ neb Ceftriaxone 2gm Azithromycin Discharge Exam Constitutional WD/WN, vitals as above Respiratory normal respiratory effort, lungs clear to auscultation normal respiratory effort Cardiovascular RRR, no murmur, no edema Gastrointestinal (Abdomen) normal bowel sounds, soft, nontender, no hepatosplenomegaly Psychiatric A+Ox3, euthymic affect Updated Medication List Medication Instructions Recorded Confirmed Type Oxygen Home #1 ea 07/30/19 04/22/24 History acetaminophen 500 mg tablet 1,000 mg PO Q6 PRN Pain 06/20/20 04/24/24 History (Tylenol Extra Strength) docusate sodium 100 mg capsule 100 mg PO DAILY 08/07/22 04/24/24 History (Colace) nystatin-triamcinolone 100,000 1 applic topical BID PRN Rash 04/16/23 04/24/24 History unit/g-0.1 % topical cream estradiol 0.01% (0.1 mg/gram) 1 g vaginal 2XWK #42.5 grams 09/03/23 04/24/24 Rx vaginal cream aspirin 81 mg tablet,delayed 81 mg PO DAILY 01/27/24 04/24/24 History release (Adult Aspirin Regimen) triamcinolone acetonide 0.1 % 1 applic topical DAILY PRN 01/27/24 04/24/24 History lotion RASH/SKIN IRRITATION ammonium lactate 12 % lotion 1 applic topical DAILY 02/26/24 04/24/24 History bupropion HCl 150 mg tablet,12 hr 150 mg PO QAM #90 ea 03/11/24 04/24/24 Rx sustained-release ketoconazole 2 % topical cream 1 applic topical UD PRN Skin 03/14/24 04/24/24 History Irritation furosemide 40 mg tablet (Lasix) 40 mg PO .QAFTERNOON 04/05/24 04/24/24 History empagliflozin 10 mg tablet 10 mg PO DAILY #30 tabs 04/22/24 04/24/24 Rx (Jardiance) isosorbide mononitrate 30 mg 30 mg PO QAM #30 tabs 04/28/24 Rx tablet,extended release 24 hr atorvastatin 40 mg tablet 40 mg PO QAM #30 tabs 05/07/24 Rx famotidine 20 mg tablet 20 mg PO BID #60 tabs 05/07/24 Rx lisinopril 5 mg tablet (Zestril) 5 mg PO QAM #30 tabs 05/07/24 Rx metoprolol succinate 50 mg 50 mg PO QAM #30 tabs 05/07/24 Rx tablet,extended release 24 hr Hospital Stay Data Consultations 04/24/24 22:13 ED Decision to Admit Stat 04/25/24 22:39 Consult Cardiology Routine Procedures Performed Operation Date: 04/26/24 12:30 Actual Procedures p Cineradiography w/Routine Exam - Jaime Bosch MD, PhD p Cath, Coronaries ONLY (no LV) - Jaime Bosch MD, PhD Diagnostic Imagining Performed 04/26/24 09:45 CL Cath Imgs for PACS use only Routine ECHO Pending Results Patient Have Any Pending Studies at Discharge: No Discharge Instructions Given to Patient (Per Discharging Provider) You were admitted with pneumonia and Rhino/Enterovirus and treated with antibiotics. Unfortunately, you suffered a mild heart attack while you were here and had a cardiac catheterization, but not heart stents were placed. You were started on some new medications to improve your heart strength and to prevent future chest pain. You were also started on an antacid called famotidine for indigestion. Home Care: * Take your medications exactly as directed. Don't skip doses. * Remember that recovery after a heart attack takes time. Plan to rest for at lease 4-8 weeks while you recover. Then return to normal activity when your doctor says it's okay. * Ask your doctor about joining a heart rehabilitation program. * Tell your doctor if you are feeling depressed. Feelings of sadness are common after a heart attack, but it is important that you speak to someone if you are feeling overwhelmed by these feelings. * If you are having chest pain, call 911 for an ambulance. Do NOT drive yourself to the hospital. * Ask your family members to learn CPR. * Learn to take your own blood pressure and pulse. Keep a record of your results. Ask your doctor when you should seek emergency medical attention. He or she will tell you which blood pressure reading is dangerous. Lifestyle Changes: * Maintain a healthy weight. Get help to lose any extra pounds. * Cut back on salt. * Limit canned, dried, packaged, and fast foods. * Don't add salt to your food. * Season foods with herbs instead of salt when you cook. * Break the smoking habit. Enroll in a stop-smoking program to improve your radha nces of success. * Limit fatty foods. * Ask your doctor about having your lipid levels checked regularly. * Build up your activity according to your doctor's recommendation. * Ask your doctor when it's okay to resume sexual activity. * Tell your doctor about any erectile dysfunction (ED) medication you are taking. Some ED medications are not safe if you take certain heart medications. * Try to manage stress. Follow Up: It is important for you to keep your follow up appointments with your medical provider. ACTIVITY RECOMMENDATIONS: It is common to feel weak and fatigue for a few days. * Do not drive or operate any motorized equipment for the next three days. * Limit stair usage (2 or 3 trips a day only) for the next three days. * Do not lift anything heavier than 10 pounds for the next three days. * Do not engage in vigorous exercise or any sports for the next five days. * You may shower the day after your procedure, but do not immerse the area for three days. Cleanse the site gently with soap and water. SPECIAL CARE INSTRUCTIONS: * You may replace the pressure dressing or band-aid the morning after the procedure. * After your procedure, it is normal to have a small bruise or small lump at the site. Examine your site daily for any change in the bruise or lump, redness, swelling, drainage or numbness. Notify your doctor if any change. BLEEDING: * If there is a small amount of bleeding at the site, lie down and apply firm pressure with a clean cloth for ten minutes. When the bleeding stops, lie quietly keeping the procedure limb straight for six hours. Notify your doctor as soon as possible. * If the bleeding does not stop after ten minutes or if there is a large amount of bleeding or spurting, call 911 immediately. Continue to lie down and hold firm pressure until help arrives. SKIN IRRITATION: * You may experience some redness and/or swelling in the area where radiation was administered. If any skin irritation occurs, please contact your family physician. FOLLOW UP VISIT: Keep any scheduled doctor appointments. Call your Primary Care doctor if any of the following symptoms or problems start or get worse: * Shortness of breath or difficulty breathing * Wake up at night short of breath * Chest pain * Cough * Swelling of your hands, feet, or legs * More fatigued or tired with your normal activity * Palpitations - sudden fast heart beats WEIGHT * Weigh yourself every morning after using the bathroom. * Use the same scale. * Wear the same amount of clothing. * Write your weight down on a chart. * Call your Primary Care doctor if you gain more than 2-3 pounds in 1-2 days. MEDICATIONS * Use this discharge instruction sheet for medication instructions. * Take your medications at the time your doctor ordered. * Do not skip a dose of your medicines. * If you miss a dose of medicine, take it as soon as possible, but DO NOT DOUBLE A DOSE. * Read your medicine information when you get home. * Know all of the side effects of your medicine. If in doubt, ask your pharmacist * Call your Primary Care doctor's office if you have any side effects. * Be sure all of your doctors know what medicine and herbs you take (including cold, flu, and herbal medicine). Take the following with you to your follow-up doctor appointments: * Weight Chart * Medication List * List of questions Do not drink excessive alcohol, beer or wine. Total Time Total Time Spent Total Time Spent (In Minutes): 40 min Total Time Includes: Examination of the Patient, Discharge Planning and Medication Reconciliation Coding Level of Care Code 75292 INP/OBS DISCH >30 MIN Diagnoses NSTEMI (non-ST elevated myocardial infarction) I21.4 Pneumonia J18.9 Laterality: left Lung location: lower lobe of lung Pneumonia type: due to unspecified organism Rhinovirus infection B34.8 Hemoptysis R04.2 Asthmatic bronchitis J45.909 Mitral regurgitation I34.0 CAD (coronary artery disease), [facility] coronary artery I25.10 Hypertension I10 (HFpEF) heart failure with preserved ejection fraction I50.30
--- NOTE | 2024-05-10 06:58 | Coding Query ---
CODING QUERY To promote full compliance with coding requirements relating to patient care, provider participation is requested in all cases of vp foundation uncertainty. Please assist us with the question(s) below: Coding Question(s): Pt admitted with SOB. Coronary angiography revealed severe coronary artery disease. Progress notes document both NSTEMI and Type II NC (due to demand). Discharge Summary documented NSTEMI. Please check below the diagnosis after study that was treated during this inpatient stay. Thank you! Juan Ramon Barraza [facility] Physician's Response(s): x___ NSTEMI Type II NC Due to demand ischemia Other: Please document : Principal Diagnosis: "that condition established after study, to be chiefly responsible for occasioning the admission of the patient to the hospital for care." Co-Existing Principal Diagnosis: "when two or more diagnoses equally meet the criteria for principal diagnosis as determined by the circumstances of admission, diagnostic work up, and/or therapy provided, and the Alphabetic Index, Tabular List, or another coding guideline does not provide sequencing direction, any one of the diagnoses may be sequenced first." "When the physician has documented what appears to be a current diagnosis in the body of the record, but has not included the diagnosis in the final diagnostic statement, the physician should be asked whether the diagnosis should be added." ([facility] 2 QTR90. p3-4) ABEL
--- NOTE | 2024-05-10 07:03 | Coding Query ---
CODING QUERY To promote full compliance with coding requirements relating to patient care, provider participation is requested in all cases of pre coder uncertainty. Please assist us with the question(s) below: Coding Question(s): Pt admitted with SOB. Progress notes documented Pneumonia & Sepsis POA. Later progress notes document the pneumonia ruled out. The Discharge Summary documented Pneumonia . Please check below the phrase that describes the Pneumonia. Thanks for your help! MITRA Sterling [facility] Physician's Response(s): x___ Pneumonia was treated during this Inpatient stay Pneumonia was ruled out during this Inpatient stay Other: please document: Principal Diagnosis: "that condition established after study, to be chiefly responsible for occasioning the admission of the patient to the hospital for care." Co-Existing Principal Diagnosis: "when two or more diagnoses equally meet the criteria for principal diagnosis as determined by the circumstances of admission, diagnostic work up, and/or therapy provided, and the Alphabetic Index, Tabular List, or another coding guideline does not provide sequencing direction, any one of the diagnoses may be sequenced first." "When the physician has documented what appears to be a current diagnosis in the body of the record, but has not included the diagnosis in the final diagnostic statement, the physician should be asked whether the diagnosis should be added." (Source [facility]oding [facility] 2 QTR90. p3-4) ABEL
== END 2024-05-07 12:54 | disposition home health service (06) | DRG 280 ==
LOC: ED 19:48 → 3W 19:48 → SUATTDRO 22:50 → 3W 23:08 → 2E 04-25 23:30 → SUATTDRO 04-26 06:49 → 3E 05-05 18:46
PROC: CLB.CCO (2024-04-26 12:30)